=== PATIENT | female | born 1995 | race Caucasian/White ===

== ENCOUNTER 2017-06-13 18:34 | Outpatient (CLI) | payer MEDICAID ==
[~2017-06-13] VITALS: Ht 165.1 cm; Wt 90.7 kg
[2017-06-13 19:00] VITALS: BP 122/67
[2017-06-13 19:05] VITALS: BP 124/71
[2017-06-13 19:10] VITALS: BP 123/71
[2017-06-13 19:15] VITALS: BP 123/71
[2017-06-13 19:20] VITALS: BP 121/75
[2017-06-13 19:30] VITALS: BP 118/73
--- NOTE | 2017-06-14 11:37 | Physician Query-Final Dx ---
PRINCESS BLACKMON 06/14/17 1137: Clinic Account Progress/Dx Physician Query: Please give diagnosis Date of Service Jun 13, 2017 at 18:34 ALEJANDRA JIMENEZ DO 06/27/17 1526: Clinic Account Progress/Dx DIAGNOSIS: Diagnosis 1. 36 week gestation 2. dizziness PRINCESS BLACKMON Jun 14, 2017 11:37 ALEJANDRA JIMENEZ DO Jun 27, 2017 15:26
== END 2017-06-13 19:40 | disposition home or self-care (01) ==
LOC: WSo 18:34 → LDRP 18:37 → WSo 19:40
PROVIDERS: ATTEND Family Medicine
DX: O99.89 Other specified diseases and conditions complicating pregnancy, childbirth and the puerperium (principal); R42 Dizziness and giddiness; Z3A.36 36 weeks gestation of pregnancy
CPT/HCPCS: 99213

== ENCOUNTER → 2017-06-18 | Outpatient (CLI) | payer MEDICAID ==
--- NOTE | 2017-06-18 15:39 | Diagnostic Imaging Report ---
INDICATION: -induced hypertension. FINDINGS: There is a single live fetus in a cephalic presentation. The heart rate was recorded at 136 BPM. The amniotic fluid index is 9.8 cm. The placenta is to the left. A biophysical profile was performed with a normal score of 8 out of 8 points. IMPRESSION: The biophysical profile score was 8 out of 8 points. Dictated by: Dictated on workstation # [id number]
[2017-06-18 16:05] LABS: ALANINE AMINOTRANSFERASE 9 U/L (0-55); ALBUMIN 3.5 GM/DL (3.2-4.5); ALKALINE PHOSPHATASE 191 U/L (40-136); BILIRUBIN,TOTAL 0.2 MG/DL (0.1-1.0); BUN/CREATININE RATIO 14; CALCIUM 9.3 MG/DL (8.5-10.1); CARBON DIOXIDE 21 MMOL/L (21-32); CHLORIDE 107 MMOL/L (98-107); CREATININE SERUM 0.69 MG/DL (0.60-1.30); GFR ESTIMATED > 60; GLUCOSE 87 MG/DL (70-105); POTASSIUM 4.1 MMOL/L (3.6-5.0); SODIUM 137 MMOL/L (135-145); TOTAL PROTEIN 7.1 GM/DL (6.4-8.2); URIC ACID 5.1 MG/DL (2.6-7.2)
== END ==
LOC: RAD 15:01
PROVIDERS: ATTEND Family Medicine
DX: O13.3 Gestational [pregnancy-induced] hypertension without significant proteinuria, third trimester (principal); Z3A.00 Weeks of gestation of pregnancy not specified
CPT/HCPCS: 36415; 76819; 80053; 83615; 84550

== ENCOUNTER 2017-06-19 17:44 | Outpatient (CLI) | payer MEDICAID ==
[~2017-06-19] VITALS: Ht 165.1 cm; Wt 90.3 kg
[2017-06-19 18:00] VITALS: BP 141/74
[2017-06-19 18:32] VITALS: BP 124/79
[2017-06-19 18:48] VITALS: BP 124/79
[2017-06-19 18:53] LABS: BASOPHILS % (AUTO) 0 % (0-10); EOSINOPHILS # (AUTO) 0.1 10^3/uL (0.0-0.3); EOSINOPHILS % (AUTO) 1 % (0-10); HEMATOCRIT 32 % (35-52); HEMOGLOBIN 10.6 G/DL (11.5-16.0); LYMPHOCYTES # (AUTO) 2.6 X 10^3 (1.0-4.0); LYMPHOCYTES % (AUTO) 23 % (12-44); MEAN CORPUSCULAR HEMOGLOBIN 29 PG (25-34); MEAN CORPUSCULAR HGB CONC 34 G/DL (32-36); MEAN CORPUSCULAR VOLUME 85 FL (80-99); MEAN PLATELET VOLUME 11.6 FL (7.4-10.4); MONOCYTES % (AUTO) 9 % (0-12); NEUTROPHILS # (AUTO) 7.3 X 10^3 (1.8-7.8); NEUTROPHILS % (AUTO) 66 % (42-75); PLATELET COUNT 246 10^3/uL (130-400); RED CELL DISTRIBUTION WIDTH 12.9 % (10.0-14.5)
[2017-06-19 19:21] LABS: ALANINE AMINOTRANSFERASE 9 U/L (0-55); ALBUMIN 3.2 GM/DL (3.2-4.5); ALKALINE PHOSPHATASE 175 U/L (40-136); BILIRUBIN,TOTAL 0.2 MG/DL (0.1-1.0); BUN/CREATININE RATIO 15; CALCIUM 9.4 MG/DL (8.5-10.1); CARBON DIOXIDE 20 MMOL/L (21-32); CHLORIDE 108 MMOL/L (98-107); CREATININE SERUM 0.68 MG/DL (0.60-1.30); GFR ESTIMATED > 60; GLUCOSE 95 MG/DL (70-105); POTASSIUM 3.9 MMOL/L (3.6-5.0); SODIUM 139 MMOL/L (135-145); TOTAL PROTEIN 6.7 GM/DL (6.4-8.2); URIC ACID 4.7 MG/DL (2.6-7.2)
[2017-06-20] VITALS (8 sets, daily range): BP systolic 94–132; BP diastolic 54–86
[2017-06-20] MEDS ORDERED: D5 LR IV SOLUTION 1,000 ML IV SCH (08:48)
[2017-06-20] MEDS ORDERED: DINOPROSTONE 10 MG (CERVIDIL) INSERT PV ONE (09:00)
--- NOTE | 2017-06-20 11:25 | Short Stay Summary ---
History of Present Illness History of Present Illness Reason for visit/HPI Admitted for pre eclampsia workup. Blood pressures improved from last night. Denies any blurry vision, headaches, abdominal pain, or LE swelling. Date of Admission 06/19/2017 Date of Discharge 06/20/2017 Time Seen by Provider: 09:35 Attending Physician Clare Younger MD Admitting Physician Clare Younger MD Consult Allergies and Home Medications Allergies Coded Allergies: No Known Drug Allergies (Unverified , 06/13/17) Home Medications No Active Prescriptions or Reported Meds Past Kvhgfvj-Meqwds-Fxlskx Hx Patient Social History Smoking Status: Former Smoker Former Smoker, Quit: May 19, 2016 Type Used: Cigarettes Physical Abuse Screen: No Sexual Abuse: No Recent Foreign Travel: No Contact w/other who traveled: No Recent Infectious Disease Expo: No Immunizations Up To Date Date of Influenza Vaccine: Mar 13, 2017 Reproductive System Expected Date of Delivery: Jul 06, 2017 Last Menstrual Period: September 07, 2016 Hx : 1 Hx Para: 0 Hx Total # of Abortions (Spona: 0 Constitutional: no symptoms reported, No fever, No malaise, No weakness EENTM: no symptoms reported, No blurred vision, No double vision, No vision loss Respiratory: no symptoms reported, No cough, No dyspnea on exertion, No short of breath Cardiovascular: no symptoms reported, No chest pain, No palpitations Gastrointestinal: no symptoms reported, No abdominal pain Genitourinary: no symptoms reported, No dysuria, No frequency : Yes Musculoskeletal: no symptoms reported Skin: no symptoms reported Psychiatric/Neurological: No Symptoms Reported Physical Exam Vital Signs Vital Signs - First Documented 06/19/17 18:00 Temp 98.3 Pulse 87 Resp 18 B/P (MAP) 141/74 (96) Pulse Ox 96 O2 Delivery Room Air Capillary Refill : General Appearance: No Apparent Distress, WD/WN HEENT: PERRL/EOMI Respiratory: Chest Non Tender, Lungs Clear, No Respiratory Distress Cardiovascular: Regular Rate, Rhythm, No Edema, Normal Peripheral Pulses Gastrointestinal: Normal Bowel Sounds, No Organomegaly, Non Tender, Soft Back: No CVA Tenderness Extremity: No Calf Tenderness, Other (trace swelling non pitting) Neurologic/Psychiatric: Alert, Oriented x3, No Motor/Sensory Deficits, Normal Mood/Affect, 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 Skin: Normal Color, Warm/Dry Lymphatic: No Adenopathy Short Stay Diagnosis Discharge Diagnosis-Short Stay Admission Diagnosis: Third trimester pregrancy 37 week gestation Elevated blood pressure Final Discharge Diagnosis: See Above Conclusion Labs Laboratory Tests 06/19/17 18:45: White Blood Count 11.0, Red Blood Count 3.70L, Hemoglobin 10.6L, Hematocrit 32L , Mean Corpuscular Volume 85, Mean Corpuscular Hemoglobin 29, Mean Corpuscular Hemoglobin Concent 34, Red Cell Distribution Width 12.9, Platelet Count 246, Mean Platelet Volume 11.6H, Neutrophils (%) (Auto) 66, Lymphocytes (%) (Auto) 23 , Monocytes (%) (Auto) 9, Eosinophils (%) (Auto) 1, Basophils (%) (Auto) 0, Neutrophils # (Auto) 7.3, Lymphocytes # (Auto) 2.6, Monocytes # (Auto) 1.0, Eosinophils # (Auto) 0.1, Basophils # (Auto) 0.0, Sodium Level 139, Potassium Level 3.9, Chloride Level 108H, Carbon Dioxide Level 20L, Anion Gap 11, Blood Urea Nitrogen 10, Creatinine 0.68, Estimat Glomerular Filtration Rate > 60, BUN/ Creatinine Ratio 15, Glucose Level 95, Uric Acid 4.7, Calcium Level 9.4, Total Bilirubin 0.2, Aspartate Amino Transf (AST/SGOT) 14, Alanine Aminotransferase ( ALT/SGPT) 9, Alkaline Phosphatase 175H, Lactate Dehydrogenase 188, Total Protein 6.7, Albumin 3.2 06/20/17 10:00: Urine Protein 10, Urine Creatinine 106, Urine Protein/Creatinine Ratio 0.09 Conclusion/Plan 22 yo 37wga admitted for obs for workup to rule out pre eclampsia Plan - Ratio 0.09 - Blood pressures improved today - Discussed signs and symptoms of pre eclampsia - Plan for IOL on Saturday Copy Copies To 1: CLARE YOUNGER MD, HOLLY R MD Jun 20, 2017 11:25
--- NOTE | 2017-06-20 12:40 | Discharge Instructions ---
Discharge Inst-[facility] Discharge Medications New, Converted or Re-Newed RX: Other (No new scipts) Medication Profile: No Active Prescriptions or Reported Meds Patient Instructions Goal/Follow Up Appt: You will need to come in on Saturday for induction of labor Return to The Hospital For: - Headache - Blurry vision - Increased swelling - Abdominal pain - Onset of labor Activity & Diet Discharge Diet: No Restrictions Activity as Tolerated: Yes Copy Copies To 1: CLARE WOOTEN MD, HOLLY R MD Jun 20, 2017 12:40 pm
[2017-06-20] MEDS ORDERED: AMPICILLIN INJECTION 1,000 MG in NS (IVPB) 50 ML IV SCH (13:00)
[2017-06-20] MEDS ORDERED: CATHETER FLUSH 10 ML SYR IV SCH (14:00)
[2017-06-21] MEDS ORDERED: AMPICILLIN INJECTION 2,000 MG in NS (IVPB) 50 ML IV SCH (08:32)
== END 2017-06-20 13:00 | disposition home or self-care (01) ==
LOC: WSo 17:44 → LDRP 17:44 → WSo 06-20 13:00
PROVIDERS: ATTEND Family Medicine
DX: R03.0 Elevated blood-pressure reading, without diagnosis of hypertension (principal); Z87.891 Personal history of nicotine dependence; Z3A.37 37 weeks gestation of pregnancy
CPT/HCPCS: 36415; 80053; 82570; 83615; 84156; 84550; 85025

== ENCOUNTER 2017-06-23 15:15 | Inpatient (IN) | payer MEDICAID ==
[~2017-06-23] VITALS: Ht 165.1 cm; Wt 92.7 kg
--- OUTSIDE RECORDS SUMMARY | 2017-06-23 19:15 | XMS REPORT ---
Author Author Aisha Marshall [facility] Address [address] [place] [id number] Care Team Providers Care Superintendent Recreation Name Role Phone Aisha Marshall PCP Marilu Huffman PreferredProvider Unavailable Allergies and Adverse Reactions Name Reaction Notes NO KNOWN DRUG ALLERGIES Plan of Treatment Planned Activity Comments Planned Date Planned Time Plan/Goal PFT 01/15/2017 12:00 AM Medications Active Name Start Date Estimated Completion Date SIG Comments Vitamin oral tablet take 1 tablet by oral route once daily Flonase Allergy Relief 50 mcg/actuation nasal spray,suspension 01/15/2017 spray 1 spray (50 mcg) in each nostril by intranasal route once daily for 30 days ProAir HFA 90 mcg/actuation inhalation HFA aerosol inhaler 02/20/2017 inhale 1 puff (90 mcg) by inhalation route every 6 hours as needed for 30 days Macrobid 100 mg oral capsule 03/12/2017 take 1 capsule (100 mg) by oral route every 12 hours with food for 5 days Name Start Date Expiration Date SIG Comments Depo-Provera 150 mg/mL intramuscular suspension 11/26/2013 inject 150 mg by intramuscular route every 3 months omeprazole 40 mg oral capsule,delayed release(DR/EC) 06/08/2014 01/28/2014 take 1 capsule daily amoxicillin 500 mg oral capsule 06/18/2014 06/28/2014 take 1 capsule (500 mg) by oral route 3 times per day for 10 days ProAir HFA 90 mcg/actuation inhalation HFA aerosol inhaler Macrobid 100 mg oral capsule 10/26/2016 11/02/2016 take 1 capsule (100 mg) by oral route 2 times per day with food for 7 days Discontinued Name Start Date Discontinued Date SIG Comments bupropion HBr oral 11/26/2013 montelukast 10 mg oral tablet 11/26/2013 take 1 tablet (10 mg) by oral route once daily in the evening Wellbutrin 100 mg oral tablet 04/21/2014 06/18/2014 take 1 tablet (100 mg) by oral route 2 times per day Zofran (as hydrochloride) 8 mg oral tablet 11/28/2016 01/15/2017 Take 1/2 tablet every 4-6 hours as needed for nausea/vomiting nystatin 100,000 unit/gram topical powder 12/18/2016 01/15/2017 apply to the affected area(s) by topical route 2 times per day Problem List Description Status Onset Asthma Active Vital Signs Date Time BP-Sys(mm[Hg] BP-Macy(mm[Hg]) HR(bpm) RR(rpm) Temp WT HT HC BMI BSA BMI Percentile O2 Sat(%) 03/13/2017 9:50:00 AM 128 mmHg 78 mmHg 81 bpm 18 rpm 98.6 F 169 lbs 99 % 02/20/2017 8:06:00 AM 108 mmHg 77 mmHg 86 bpm 18 rpm 98.9 F 165.125 lbs 65 in 27.478 kg/m 1.8534 m 0 % 99 % 01/15/2017 10:21:00 AM 115 mmHg 72 mmHg 153 lbs 65 in 25.46 kg /m2 1.78 m2 80.9 % 10/24/2016 10:33:00 AM 128 mmHg 60 mmHg 71 bpm 98.8 F 150 lbs 65 in 24.9611 kg/m 1.7665 m 78.7 % 12/15/2014 1:26:00 PM 120 mmHg 72 mmHg 78 bpm 16 rpm 98.2 F 173 lbs 65 in 28.79 kg/m2 1.90 m2 93.2 % 99 % 08/10/2014 9:49:00 AM 120 mmHg 80 mmHg 89 bpm 16 rpm 98.2 F 169.137 lbs 65 in 28.1457 kg/m 1.8758 m 92.5 % 99 % 07/14/2014 10:47:00 AM 124 mmHg 68 mmHg 91 bpm 18 rpm 98.6 F 172 lbs 65 in 28.62 kg/m2 1.89 m2 93.4 % 98 % 06/18/2014 2:29:00 PM 97 bpm 20 rpm 98.6 F 171 lbs 65 in 28.4556 kg/m 1.8861 m 93.2 % 99 % 04/21/2014 2:19:00 PM 120 mmHg 78 mmHg 89 bpm 98.3 F 171.4 lbs 65 in 28.52 kg/m2 1.89 m2 93.4 % 99 % 12/29/2013 9:06:00 AM 124 mmHg 68 mmHg 90 bpm 18 rpm 98.3 F 177 lbs 65 in 29.454 kg/m 1.9189 m 94.9 % 98 % 11/26/2013 10:13:00 AM 120 mmHg 80 mmHg 79 bpm 16 rpm 97.7 F 176 lbs 65 in 29.29 kg/m2 1.91 m2 94.8 % 99 % Social History Name Description Comments Single Caffeine Active but no formal exercise Tobacco Former smoker History of Procedures Date Ordered Description Order Status 01/26/2015 12:00 AM Depo Provera Injection, 150 mg Reviewed 10/24/2016 12:00 AM SPECIMEN HANDLING OFFICE-LAB Reviewed 10/24/2016 12:00 AM N.GONORRHOEAE DNA AMP PROB Reviewed 10/24/2016 12:00 AM CHLAMYDIA CULTURE Reviewed 10/24/2016 12:00 AM HIV-1ANTIBODY Reviewed 10/24/2016 12:00 AM URINALYSIS AUTO W/SCOPE Reviewed 10/24/2016 12:00 AM VARICELLA-ZOSTER ANTIBODY Reviewed 10/24/2016 12:00 AM OBSTETRIC PANEL Reviewed 10/24/2016 12:00 AM SMEAR SPECIAL STAIN Reviewed 10/24/2016 12:00 AM HEPATITIS C AB TEST Reviewed 10/24/2016 12:00 AM TRICHOMONAS VAGINALIS AMPLIF Reviewed 11/13/2016 12:00 AM TRANSVAGINAL US OBSTETRIC Reviewed 11/13/2016 12:00 AM OB US < 14 WKS SINGLE FETUS Reviewed 11/08/2016 12:00 AM CHORIONIC GONADOTROPIN ASSAY Reviewed 12/18/2016 12:00 AM Progenity Testing Reviewed 02/19/2017 12:00 AM OB US >/=14 WKS SNGL FETUS Reviewed 02/12/2017 12:00 AM ALPHA-FETOPROTEIN SERUM Reviewed 02/12/2017 12:00 AM IM ADM PRQ ID SUBQ/IM NJXS 1 VACCINE Reviewed 02/12/2017 12:00 AM INFLUENZA VAC 4 VALENT PRSRV FREE 3 YRS PLUS IM Reviewed 03/12/2017 12:00 AM URINALYSIS Returned 03/12/2017 12:00 AM URINE CULTURE/COLONY COUNT Returned 11/26/2013 12:00 AM THER/PROPH/DIAG INJ SC/IM Reviewed 11/26/2013 12:00 AM Depo Provera Injection, 150 mg, R[facility] Medicaid Reviewed 02/24/2014 12:00 AM FLU VAC NO PRSV 4 YARA 3 YRS+ Reviewed 02/24/2014 12:00 AM Depo Provera Injection, 150 mg Reviewed 05/19/2014 12:00 AM Depo Provera Injection, 150 mg Reviewed 07/15/2014 12:00 AM COMPLETE CBC W/AUTO DIFF WBC Reviewed 07/15/2014 12:00 AM COMPREHEN METABOLIC PANEL Reviewed 07/15/2014 12:00 AM X-RAY EXAM OF ABDOMEN Reviewed 08/10/2014 12:00 AM THER/PROPH/DIAG INJ SC/IM Reviewed 08/10/2014 12:00 AM PULMONARY COMPLIANCE STUDY Reviewed 08/10/2014 12:00 AM Depo Provera Injection, 150 mg Reviewed 11/01/2014 12:00 AM THER/PROPH/DIAG INJ SC/IM Reviewed 11/01/2014 12:00 AM Depo Provera Injection, 150 mg, R[facility] Medicaid Reviewed 12/15/2014 12:00 AM RADEX ANKLE COMPLETE MINIMUM 3 VIEWS Reviewed Results Summary Date and Description Results 07/15/2014 2:00 PM GLUCOSE 97.0 mg/dLSODIUM 140.0 mmol/LPOTASSIUM 4.0 mmol/ LCHLORIDE 104.0 mmol/LCO2 23.0 mmol/LBUN 10.0 mg/dLCREATININE 0.80 mg/dLSGOT/ AST 18.0 IU/LSGPT/ALT 18.0 IU/LALK PHOS 121.0 IU/LTOTAL PROTEIN 8.70 g/ dLALBUMIN 4.80 g/dLTOTAL BILI 0.40 mg/dLCALCIUM 10.20 mg/dLAGE 19 GFR NonAA N/A eGFR N/A mL/min/1.73 m2eGFR AA* N/A WBC 6.8 RBC 4.98 HGB 13.50 g/dLHCT 41.80 % MCV 84.0 fLMCH 27.10 pgMCHC 32.30 g/dLRDW SD 40 RDW CV 13.30 %MPV 11.50 fLPLT 297 NRBC# 0.00 NRBC% 0.0 %NEUT 58.50 %%LYMP 31.60 %%MONO 7.80 %%EOS 1.80 %%BASO 0.30 %#NEUT 3.96 #LYMP 2.14 #MONO 0.53 #EOS 0.12 #BASO 0.02 MANUAL DIFF NOT IND 10/24/2016 11:28 AM HIV AG/AB COMBO 0.09 HEPATITIS C 0.11 COLOR YELLOW APPEARANCE CLEAR SPEC GRAV 1.025 pH 6.5 PROTEIN NEGATIVE GLUCOSE NEGATIVE mg/ dLKETONE NEGATIVE BILIRUBIN NEGATIVE BLOOD NEGATIVE NITRITE NEGATIVE LEUK SCREEN NEGATIVE WBC/HPF 0-5 RBC/HPF NEGATIVE CASTS/LPF NEGATIVE /LPFCRYSTALS NEGATIVE MUCOUS THRDS 1+ BACTERIA 3+++ EPITH CELLS FEW SQUAMOUS /HPFTRICHOMONAS NEGATIVE YEAST NEGATIVE CULT ORDERED YES WBC 6.7 RBC 4.16 HGB 11.70 g/dLHCT 35.70 %MCV 86.0 fLMCH 28.10 pgMCHC 32.80 g/dLRDW SD 40 RDW CV 12.60 %MPV 12.50 fLPLT 211 NRBC# 0.00 NRBC% 0.0 %NEUT 62.60 %%LYMP 28.80 %%MONO 7.10 %%EOS 1.0 %% BASO 0.40 %#NEUT 4.21 #LYMP 1.94 #MONO 0.48 #EOS 0.07 #BASO 0.03 MANUAL DIFF NOT IND RPR Non Reactive HBsAg Screen Negative Varicella Zoster IgG 164.0 Index 11/08/2016 4:20 PM BETA HCG QUANT 75411.0 mIU/mL 11/13/2016 5:18 PM BETA HCG QUANT 33028.0 mIU/mL 02/12/2017 10:06 AM Results Report Test Results: *Screen Negative* Gest. Age on CollectionDate 19.4 Gestat. Age Based On Ultrasound Maternal Age At [age]IA 22.3 Race Weight 166.0 lbsInsulin Dep Diabetes No Multiple Gestation No AFP Value 63.0 AFP MoM 1.30 OSBR Risk 1 IN 4803 Interpretation COMMENT Comment: COMMENT PDF 0 History Of Immunizations Name Date Admin Mfg Name Mfg Code Trade Name Lot# Route Inj Vis Given Vis Pub CVX Influenza 02/12/2017 GlaxoSmithKline SKB Fluarix [id number] Intramuscular Right Deltoid 02/12/2017 12/10/2014 158 History of Past Illness Name Date of Onset Comments Asthma Depression Contraceptive management Nov 26 2013 10:25AM General Medical Exam, Child Dec 29 2013 9:08AM Esophageal reflux Dec 29 2013 9:08AM Flu Feb 25 2014 7:42AM Contraceptive counseling (Depo-Provera) Feb 25 2014 7:45AM Irritability and anger Apr 21 2014 2:20PM Ankle pain Apr 21 2014 2:20PM Contraceptive counseling (Depo-Provera) May 19 2014 6:03PM Upper Respiratory Infections Jun 18 2014 2:30PM Abdominal Pain Jul 14 2014 10:48AM Nausea Jul 14 2014 10:48AM Constipation Jul 14 2014 10:48AM Abdominal pain Jul 15 2014 1:22PM Asthma Aug 10 2014 9:52AM Contraception management Aug 10 2014 9:52AM Contraception management Nov 01 2014 9:36AM Left ankle pain Dec 15 2014 1:28PM Contraceptive counseling (Depo-Provera) Jan 26 2015 4:13PM test confirmed positive Oct 24 2016 10:37AM Genital labial ulcer Oct 24 2016 10:37AM Vaginal lesion Oct 24 2016 10:37AM Encounter for supervision of normal first , first trimester Nov 08 2016 10:04AM Encounter for test, result positive Nov 08 2016 10:04AM Normal first confirmed, currently in first trimester Dec 18 2016 9: 28AM Normal first confirmed, currently in second trimester Jan 15 2017 9 :08AM Allergic rhinitis Jan 15 2017 10:25AM Jan 15 2017 10:25AM Shortness of breath Jan 15 2017 10:25AM Normal first confirmed, currently in second trimester Feb 12 2017 8 :58AM Flu Vaccine Feb 12 2017 9:04AM Depression Feb 20 2017 8:12AM Shortness of breath Feb 20 2017 8:12AM Feb 20 2017 8:12AM Dysuria Mar 12 2017 9:04AM Allergic rhinitis Mar 13 2017 9:52AM Depression Mar 13 2017 9:52AM Payers Insurance Name Company Name Plan Name Plan Number Policy Number Policy Group Number Start Date [employer] [place] [employer] [place] [id number] Sunday, 2012 History of Encounters Visit Date Visit Type Provider 03/13/[address] Aisha Marshall DO 03/12/[address] Kiara Stokes MD 02/20/[address] Aisha Marshall DO 02/12/[address] Kiara Stokes MD 01/15/[address] Aisha Marshall DO 01/15/[address] Kiara Stokes MD 12/18/[address] Kaira Stokes MD 11/20/[address] Kiara Stokes MD 11/08/[address] Kiara Stokes MD 10/24/2016 Office visit Ashley Del Rosario TMH TEACHER 01/26/2015 Nurse visit Marilu Huffman TMH TEACHER 12/15/2014 Office visit Sebas Ashby TMH TEACHER 11/01/2014 Nurse visit Marilu Huffman TMH TEACHER 08/10/2014 Office visit 08/10/2014 Office visit Marilu Huffman TMH TEACHER 07/14/2014 Office visit Marilu Huffman TMH TEACHER 06/18/2014 Office visit Nguyen Pettit TMH TEACHER 05/19/2014 Nurse visit Marilu Huffman TMH TEACHER 04/21/2014 Office visit Nguyen Pettit TMH TEACHER 02/24/2014 Nurse visit Nguyen Pettit TMH TEACHER 12/29/2013 Office visit Marilu Huffman TMH TEACHER 11/26/2013 Office visit Marilu Huffman TMH TEACHER
--- OUTSIDE RECORDS SUMMARY | 2017-06-23 19:16 | XMS REPORT ---
Author Author Ashley Del Rosario [facility] Address [address] [place], [place] [id number] Care Team Providers Care Cash Management Specialist Name Role Phone Ashley Del Rosario PCP Unavailable Marilu Huffman PreferredProvider Unavailable Allergies and Adverse Reactions Name Reaction Notes NO KNOWN DRUG ALLERGIES Plan of Treatment Not available. Medications Name Start Date Expiration Date SIG Comments Depo-Provera 150 mg/mL intramuscular suspension 11/26/2013 inject 150 mg by intramuscular route every 3 months omeprazole 40 mg oral capsule,delayed release(/EC) 06/08/2014 01/28/2014 take 1 capsule daily amoxicillin 500 mg oral capsule 06/18/2014 06/28/2014 take 1 capsule (500 mg) by oral route 3 times per day for 10 days ProAir HFA 90 mcg/actuation inhalation HFA aerosol inhaler Discontinued Name Start Date Discontinued Date SIG Comments bupropion HBr oral 11/26/2013 montelukast 10 mg oral tablet 11/26/2013 take 1 tablet (10 mg) by oral route once daily in the evening Wellbutrin 100 mg oral tablet 04/21/2014 06/18/2014 take 1 tablet (100 mg) by oral route 2 times per day Problem List Description Status Onset Asthma Active Vital Signs Date Time BP-Sys(mm[Hg] BP-Macy(mm[Hg]) HR(bpm) RR(rpm) Temp WT HT HC BMI BSA BMI Percentile O2 Sat(%) 10/24/2016 10:33:00 AM 128 mmHg 60 mmHg 71 bpm 98.8 F 150 lbs 65 in 24.96 kg/m2 1.77 m2 78.7 % 12/15/2014 1:26:00 PM 120 mmHg 72 mmHg 78 bpm 16 rpm 98.2 F 173 lbs 65 in 28.7884 kg/m 1.8971 m 93.2 % 99 % 08/10/2014 9:49:00 AM 120 mmHg 80 mmHg 89 bpm 16 rpm 98.2 F 169.137 lbs 65 in 28.15 kg/m2 1.88 m2 92.5 % 99 % 07/14/2014 10:47:00 AM 124 mmHg 68 mmHg 91 bpm 18 rpm 98.6 F 172 lbs 65 in 28.622 kg/m 1.8916 m 93.4 % 98 % 06/18/2014 2:29:00 PM 97 bpm 20 rpm 98.6 F 171 lbs 65 in 28.46 kg/m2 1.89 m2 93.2 % 99 % 04/21/2014 2:19:00 PM 120 mmHg 78 mmHg 89 bpm 98.3 F 171.4 lbs 65 in 28.52 kg/m2 1.8883 m 93.4 % 99 % 12/29/2013 9:06:00 AM 124 mmHg 68 mmHg 90 bpm 18 rpm 98.3 F 177 lbs 65 in 29.454 kg/m 1.92 m2 94.9 % 98 % 11/26/2013 10:13:00 AM 120 mmHg 80 mmHg 79 bpm 16 rpm 97.7 F 176 lbs 65 in 29.29 kg/m2 1.9134 m 94.8 % 99 % Social History Name Description Comments Single Caffeine Active but no formal exercise Tobacco Former smoker History of Procedures Date Ordered Description Order Status 01/26/2015 12:00 AM Depo Provera Injection, 150 mg Reviewed 11/26/2013 12:00 AM THER/PROPH/DIAG INJ SC/IM Reviewed [...] 0.12 #BASO 0.02 MANUAL DIFF NOT IND History Of Immunizations Not available. History of Past Illness Name Date of Onset Comments Asthma Contraceptive management Nov 26 2013 10:25AM General [...] Contraceptive counseling (Depo-Provera) Jan 26 2015 4:13PM Payers Insurance Name Company Name Plan Name Plan Number Policy Number Policy Group Number Start Date [employer] [place] [employer] [place] [id number] Sunday, 2012 History of Encounters Visit Date Visit Type Provider 10/24/2016 Office visit Ashley Del Rosario RECEIVER DISPATCHER 01/26/2015 Nurse visit Marilu Huffman RECEIVER DISPATCHER 12/15/2014 Office visit Sebas Ashby RECEIVER DISPATCHER 11/01/2014 Nurse visit Marilu Huffman RECEIVER DISPATCHER 08/10/2014 Office visit 08/10/2014 Office visit Marilu Huffman RECEIVER DISPATCHER 07/14/2014 Office visit Marilu Huffman RECEIVER DISPATCHER 06/18/2014 Office visit Nguyen Pettit RECEIVER DISPATCHER 05/19/2014 Nurse visit Marilu Huffman RECEIVER DISPATCHER 04/21/2014 Office visit Nguyen Pettit RECEIVER DISPATCHER 02/24/2014 Nurse visit Nguyen Pettit RECEIVER DISPATCHER 12/29/2013 Office visit Marilu Huffman RECEIVER DISPATCHER 11/26/2013 Office visit Marilu Huffman RECEIVER DISPATCHER
--- OUTSIDE RECORDS SUMMARY | 2017-06-23 19:16 | XMS REPORT ---
Author Author Marilu Huffman [facility] Address [address] [place], [place] [id number] Care Team Providers Care Family Medicine Resident Name Role Phone Marilu Huffman PCP Unavailable Allergies and Adverse Reactions Name Reaction Notes NO KNOWN DRUG ALLERGIES Plan of Treatment Not available. Medications Active Name Start Date Estimated Completion Date SIG Comments Depo-Provera 150 mg/mL intramuscular suspension 11/26/2013 inject 150 mg by intramuscular route every 3 months ProAir HFA 90 mcg/actuation inhalation HFA aerosol inhaler Name Start Date Expiration Date SIG Comments omeprazole 40 mg oral capsule,delayed release(DR/EC) 06/08/2014 01/28/2014 take 1 capsule daily amoxicillin 500 mg oral capsule 06/18/2014 06/28/2014 take 1 capsule (500 mg) by oral route 3 times per day for 10 days Discontinued Name Start Date Discontinued Date [...] HC BMI BSA BMI Percentile O2 Sat(%) 12/15/2014 1:26:00 PM 120 mmHg 72 mmHg [...] 99 % Social History Name Description Comments 11th grade Single Caffeine Active but no formal exercise In foster care History of Procedures Date Ordered Description Order [...] 12:00 AM COMPLETE CBC W/AUTO DIFF WBC Returned 07/15/2014 12:00 AM COMPREHEN METABOLIC PANEL Returned 07/15/2014 12:00 AM X-RAY EXAM OF ABDOMEN Returned 08/10/2014 12:00 AM THER/PROPH/DIAG INJ SC/IM Reviewed 08/10/2014 12:00 AM PULMONARY COMPLIANCE STUDY Returned 08/10/2014 12:00 AM Depo Provera Injection, 150 mg Reviewed 11/01/2014 12:00 AM THER/PROPH/DIAG INJ SC/IM Reviewed 11/01/2014 12:00 AM Depo Provera Injection, 150 mg, [place] Medicaid Reviewed 12/15/2014 12:00 AM RADEX ANKLE COMPLETE MINIMUM 3 VIEWS Returned Results Summary Data and Description Results 07/15/2014 2:00 PM GLUCOSE 97.0 mg/dLSODIUM 140.0 mmol/LPOTASSIUM 4.0 mmol/ LCHLORIDE 104.0 mmol/LCO2 23.0 mmol/LBUN 10.0 mg/dLCREATININE 0.80 mg/dLSGOT/ AST 18.0 IU/LSGPT/ALT 18.0 IU/LALK PHOS 121.0 IU/LTOTAL PROTEIN 8.70 g/ dLALBUMIN 4.80 g/dLTOTAL BILI 0.40 mg/dLCALCIUM 10.20 mg/dLeGFR N/A mL/min/1.73 m2WBC 6.8 RBC 4.98 HGB 13.50 g/dLHCT 41.80 %MCV 84.0 fLMCH 27.10 pgMCHC 32.30 g/ dLRDW CV 13.30 %MPV 11.50 fLPLT 297 %NEUT 58.50 %%LYMP 31.60 %%MONO 7.80 %%EOS 1.80 %%BASO 0.30 %#NEUT 3.96 #LYMP 2.14 #MONO 0.53 #EOS 0.12 #BASO 0.02 History Of Immunizations Not available. History of [...] Policy Number Policy Group Number [facility] [place] State Plan [facility] [place] State Plan [id number] Sunday, 2012 History of Encounters Visit Date Visit Type Provider 01/26/2015 Nurse visit Marilu Huffman PARTS PERSON 12/15/2014 Office visit Sebas Ashby PARTS PERSON 11/01/2014 Nurse visit Marilu Huffman PARTS PERSON 08/10/2014 Office visit Marilu Huffman PARTS PERSON 07/14/2014 Office visit Marilu Huffman PARTS PERSON 06/18/2014 Office visit Nguyen Pettit PARTS PERSON 05/19/2014 Nurse visit Marilu Huffman PARTS PERSON 04/21/2014 Office visit Nguyen Pettit PARTS PERSON 02/24/2014 Nurse visit Nguyen Pettit PARTS PERSON 12/29/2013 Office visit Marilu Huffman PARTS PERSON 11/26/2013 Office visit Marilu Huffman PARTS PERSON
--- OUTSIDE RECORDS SUMMARY | 2017-06-23 19:16 | XMS REPORT ---
Author Author Kiara Stokes [facility] Address [address] [place], [place] [id number] Care Team Providers Care V Belt Skiver Name Role Phone Kiara Stokes PCP Unavailable Marilu Huffman PreferredProvider Unavailable Allergies and Adverse Reactions Name Reaction Notes NO KNOWN DRUG ALLERGIES Plan of Treatment Planned Activity Comments Planned Date Planned Time Plan/Goal OB TRANSVAGINAL 11/13/2016 12:00 AM OB Complete Sono, Less than 14 weeks 11/13/2016 12:00 AM Quantitative Beta HCG 11/08/2016 12:00 AM Medications Active Name Start Date Estimated Completion Date SIG Comments Vitamin oral tablet take 1 tablet by oral route once daily Name Start Date Expiration Date SIG Comments [...] Asthma Active Vital Signs Date Time BP-Sys(mm[Hg] BP-Amcy(mm[Hg]) HR(bpm) RR(rpm) Temp WT HT HC BMI [...] 10/24/2016 12:00 AM TRICHOMONAS VAGINALIS AMPLIF Reviewed 11/26/2013 12:00 AM THER/PROPH/DIAG INJ SC/IM [...] IND RPR Non Reactive HBsAg Screen Negative Rubella Antibodies, IgG 1.39 IndexVaricella Zoster IgG 164.0 Index History Of Immunizations Not available. History of [...] test, result positive Nov 08 2016 10:04AM Payers Insurance Name Company Name Plan Name Plan Number Policy Number Policy Group Number Start Date [employer] [place] [employer] [place] [id number] Sunday, 2012 History of Encounters Visit Date Visit Type Provider 11/08/[address] Kiara Stokes MD 10/24/2016 Office visit Ashley Del Rosario SANITARIAN 01/26/2015 Nurse visit Marilu Huffman SANITARIAN 12/15/2014 Office visit Sebas Ashby SANITARIAN 11/01/2014 Nurse visit Marilu Huffman SANITARIAN 08/10/2014 Office visit 08/10/2014 Office visit Marilu Huffman SANITARIAN 07/14/2014 Office visit Marilu Huffman SANITARIAN 06/18/2014 Office visit Nguyen Pettit SANITARIAN 05/19/2014 Nurse visit Marilu Huffman SANITARIAN 04/21/2014 Office visit Nguyen Pettit SANITARIAN 02/24/2014 Nurse visit Nguyen Pettit SANITARIAN 12/29/2013 Office visit Marilu Huffman SANITARIAN 11/26/2013 Office visit Marilu Huffman SANITARIAN
--- OUTSIDE RECORDS SUMMARY | 2017-06-23 19:17 | XMS REPORT ---
Author Author Kiara Stokes [facility] Address [address] [place], [place] [phone] Care Team Providers Care Platform Stapler Name Role Phone Kiara Stokes PCP Unavailable [...] Plan [employer] - [place] State Plan [id number] Sunday, 2012 History of Encounters Visit Date Visit Type Provider 11/08/[address] Kiara Stokes MD 10/24/2016 Office visit Ashley Del Rosario ANCHOR TACK PULLER 01/26/2015 Nurse visit Marilu Huffman ANCHOR TACK PULLER 12/15/2014 Office visit Sebas Ashby ANCHOR TACK PULLER 11/01/2014 Nurse visit Marilu Huffman ANCHOR TACK PULLER 08/10/2014 Office visit 08/10/2014 Office visit Marilu Huffman ANCHOR TACK PULLER 07/14/2014 Office visit Marilu Huffman ANCHOR TACK PULLER 06/18/2014 Office visit Nguyen Pettit ANCHOR TACK PULLER 05/19/2014 Nurse visit Marilu Huffman ANCHOR TACK PULLER 04/21/2014 Office visit Nguyen Pettit ANCHOR TACK PULLER 02/24/2014 Nurse visit Nguyen Pettit ANCHOR TACK PULLER 12/29/2013 Office visit Marilu Huffman ANCHOR TACK PULLER 11/26/2013 Office visit Marilu Huffman ANCHOR TACK PULLER
--- OUTSIDE RECORDS SUMMARY | 2017-06-23 19:17 | XMS REPORT ---
Author Author Kiara Stokes [facility] Address [address] [place], [place] [phone] Care Team Providers Care Water Treatment Plant Mechanic Name Role Phone Kiara Stokes PCP Unavailable Marilu Huffman PreferredProvider Unavailable Allergies and Adverse Reactions Name Reaction Notes NO KNOWN DRUG ALLERGIES Plan of Treatment Planned Activity Comments Planned Date Planned Time Plan/Goal OB Complete Sono, Less than 14 weeks 11/13/2016 12:00 AM Medications Active Name Start Date [...] Reviewed 11/13/2016 12:00 AM TRANSVAGINAL US OBSTETRIC Returned 11/08/2016 12:00 AM CHORIONIC GONADOTROPIN ASSAY Returned 11/26/2013 12:00 AM THER/PROPH/DIAG INJ SC/IM [...] IgG 1.39 IndexVaricella Zoster IgG 164.0 Index 11/08/2016 4:20 PM BETA HCG QUANT 24968.0 mIU/mL 11/13/2016 5:18 PM BETA HCG QUANT 49377.0 mIU/mL History Of Immunizations Not available. History of [...] Plan [employer] - [place] Plan [id number] Sunday, 2012 History of Encounters Visit Date Visit Type Provider 11/20/[address] Kiara Stokes MD 11/08/[address] Kiara Stokes MD 10/24/2016 Office visit Ashley Del Rosario SECOND HAND 01/26/2015 Nurse visit Marilu Huffman SECOND HAND 12/15/2014 Office visit Sebas Ashby SECOND HAND 11/01/2014 Nurse visit Marilu Huffman SECOND HAND 08/10/2014 Office visit 08/10/2014 Office visit Marilu Huffman SECOND HAND 07/14/2014 Office visit Marilu Huffman SECOND HAND 06/18/2014 Office visit Nguyen Pettit SECOND HAND 05/19/2014 Nurse visit Marilu Huffman SECOND HAND 04/21/2014 Office visit Nguyen Pettit SECOND HAND 02/24/2014 Nurse visit Nguyen Pettit SECOND HAND 12/29/2013 Office visit Marilu Huffman SECOND HAND 11/26/2013 Office visit Marilu Huffman SECOND HAND
--- OUTSIDE RECORDS SUMMARY | 2017-06-23 19:17 | XMS REPORT ---
Author Author Aisha Marshall [facility] Address [address] [place] [id number] Care Team Providers Care Commercial Energy Rater Name Role Phone Aisha Marshall PCP Marilu Huffman PreferredProvider Unavailable Allergies and Adverse Reactions Name Reaction Notes NO KNOWN DRUG ALLERGIES Plan of Treatment Planned Activity Comments Planned Date Planned Time Plan/Goal Ultrasound, OB complete >14 weeks 02/19/2017 12:00 AM PFT 01/15/2017 12:00 AM Medications Active Name [...] 6 hours as needed for 30 days Name Start Date Expiration Date SIG [...] HC BMI BSA BMI Percentile O2 Sat(%) 02/20/2017 8:06:00 AM 108 mmHg 77 mmHg 86 bpm 18 rpm 98.9 F 165.125 lbs 65 in 27.48 kg/m2 1.85 m2 0 % 99 % 01/15/2017 10:21:00 AM 115 mmHg 72 mmHg 153 lbs 65 in 25.4603 kg/m 1.784 m 80.9 % 10/24/2016 10:33:00 AM 128 mmHg [...] bpm 98.3 F 171.4 lbs 65 in 28.5222 kg/m 1.8883 m 93.4 % 99 % 12/29/2013 9:06:00 AM 124 mmHg 68 mmHg 90 bpm 18 rpm 98.3 F 177 lbs 65 in 29.45 kg/m2 1.92 m2 94.9 % 98 % 11/26/2013 10:13:00 AM 120 mmHg 80 mmHg 79 bpm 16 rpm 97.7 F 176 lbs 65 in 29.2876 kg/m 1.9134 m 94.8 % 99 % Social [...] Reviewed 12/18/2016 12:00 AM Progenity Testing Reviewed 02/12/2017 12:00 AM ALPHA-FETOPROTEIN SERUM Returned 02/12/2017 12:00 AM IM ADM PRQ ID SUBQ/IM NJXS 1 VACCINE Reviewed 02/12/2017 12:00 AM INFLUENZA VAC 4 VALENT PRSRV FREE 3 YRS PLUS IM Reviewed 11/26/2013 12:00 AM THER/PROPH/DIAG INJ SC/IM [...] Index 11/08/2016 4:20 PM BETA HCG QUANT 06729.0 mIU/mL 11/13/2016 5:18 PM BETA HCG QUANT 57432.0 mIU/mL History Of Immunizations Name Date Admin Mfg [...] 20 2017 8:12AM Feb 20 2017 8:12AM Payers Insurance Name Company Name Plan Name Plan Number Policy Number Policy Group Number Start Date [employer] [place] [employer] [place] [id number] Sunday, 2012 History of Encounters Visit Date Visit Type Provider 02/20/[address] Aisha Marshall DO 02/12/[address] Kiara Stokes MD 01/15/[address] Aisha Marshall DO 01/15/[address] Kiara Stokes MD 12/18/[address] Kiara Stokes MD 11/20/[address] Kiara Stokes MD 11/08/[address] Kiara Stokes MD 10/24/2016 Office visit Ashley Del Rosario DIVER TENDER 01/26/2015 Nurse visit Marilu Huffman DIVER TENDER 12/15/2014 Office visit Sebas Ashby DIVER TENDER 11/01/2014 Nurse visit Marilu Huffman DIVER TENDER 08/10/2014 Office visit 08/10/2014 Office visit Marilu Huffman DIVER TENDER 07/14/2014 Office visit Marilu Huffman DIVER TENDER 06/18/2014 Office visit Nguyen Pettit DIVER TENDER 05/19/2014 Nurse visit Marilu Huffman DIVER TENDER 04/21/2014 Office visit Nguyen Pettit DIVER TENDER 02/24/2014 Nurse visit Nguyen Pettit DIVER TENDER 12/29/2013 Office visit Marilu Huffman DIVER TENDER 11/26/2013 Office visit Marilu Huffman DIVER TENDER
--- OUTSIDE RECORDS SUMMARY | 2017-06-23 19:18 | XMS REPORT ---
Author Author Kiara Stokes [facility] Address [address] [place] [id number] Care Team Providers Care Keg Washer Name Role Phone Kiara Stokes PCP Unavailable Marilu Huffman PreferredProvider Unavailable Allergies and Adverse Reactions Name Reaction Notes NO KNOWN DRUG ALLERGIES Plan of Treatment Planned Activity Comments Planned Date Planned Time Plan/Goal PFT 01/15/2017 12:00 AM UA with C&S, if indicated 03/12/2017 12:00 AM UA with C&S, if indicated 03/12/2017 12:00 AM Medications Active Name Start Date [...] Index 11/08/2016 4:20 PM BETA HCG QUANT 32829.0 mIU/mL 11/13/2016 5:18 PM BETA HCG QUANT 52358.0 mIU/mL 02/12/2017 10:06 AM Results Report Test [...] Vis Given Vis Pub CVX Influenza 02/12/2017 GlaxMy-Appsine SKB Fluarix [id number] Intramuscular Right Deltoid 02/12/2017 [...] 2017 8:12AM Dysuria Mar 12 2017 9:04AM Payers Insurance Name Company Name Plan Name Plan Number Policy Number Policy Group Number Start Date [employer] [place] [employer] [place] [id number] Sunday, 2012 History of Encounters Visit Date Visit Type Provider 03/12/[address] Kiara Stokes MD 02/20/[address] Aisha Marshall DO 02/12/[address] Kiara Stokes MD 01/15/[address] Aisha Marshall DO 01/15/[address] Kiara Stokes MD 12/18/[address] Kiara Stokes MD 11/20/[address] Kiara Stokes MD 11/08/[address] Kiara Stokes MD 10/24/2016 Office visit Ashley Del Rosario CLIENT SERVICE REPRESENTATIVE 01/26/2015 Nurse visit Marilu Huffman CLIENT SERVICE REPRESENTATIVE 12/15/2014 Office visit Sebas Ashby CLIENT SERVICE REPRESENTATIVE 11/01/2014 Nurse visit Marilu Huffman CLIENT SERVICE REPRESENTATIVE 08/10/2014 Office visit 08/10/2014 Office visit Marilu Huffman CLIENT SERVICE REPRESENTATIVE 07/14/2014 Office visit Marilu Huffman CLIENT SERVICE REPRESENTATIVE 06/18/2014 Office visit Nguyne Pettit CLIENT SERVICE REPRESENTATIVE 05/19/2014 Nurse visit Marilu Huffman CLIENT SERVICE REPRESENTATIVE 04/21/2014 Office visit Nguyen Pettit CLIENT SERVICE REPRESENTATIVE 02/24/2014 Nurse visit Nguyen Pettit CLIENT SERVICE REPRESENTATIVE 12/29/2013 Office visit Marilu Huffman CLIENT SERVICE REPRESENTATIVE 11/26/2013 Office visit Marilu Huffman CLIENT SERVICE REPRESENTATIVE
--- OUTSIDE RECORDS SUMMARY | 2017-06-23 19:18 | XMS REPORT ---
Author Author Kiara Stokes [facility] Address [address] [place] [id number] Care Team Providers Care Lower School Spanish Teacher Name Role Phone Kiara Stokes PCP Marilu Huffman PreferredProvider Allergies and Adverse Reactions Name Reaction Notes NO KNOWN DRUG ALLERGIES Plan of Treatment Planned Activity Comments Planned Date Planned Time Plan/Goal PFT 01/15/2017 12:00 AM GLUCOSE; TOLERANCE TEST 3 hr (GTT), 04/10/2017 12:00 AM Medications Active Name Start Date [...] 6 hours as needed for 30 days Bactrim DS 800-160 mg oral tablet 04/01/2017 take 1 tablet by oral route every 12 hours for 7 days Name Start Date Expiration Date SIG [...] by topical route 2 times per day Macrobid 100 mg oral capsule 03/12/2017 04/01/2017 take 1 capsule (100 mg) by oral route every 12 hours with food for 5 days Problem List Description Status Onset Asthma Active [...] PLUS IM Reviewed 03/12/2017 12:00 AM URINALYSIS Reviewed 03/12/2017 12:00 AM URINE CULTURE/COLONY COUNT Reviewed 03/25/2017 12:00 AM URNLS DIP STICK/TABLET REAGENT AUTO MICROSCOPY Reviewed 04/09/2017 12:00 AM RH IG FULL-DOSE IM Returned 04/09/2017 12:00 AM Type and screen Returned 04/09/2017 12:00 AM GLUCOSE TOLERANCE TEST (GTT) Returned 04/09/2017 12:00 AM COMPLETE CBC W/AUTO DIFF WBC Returned 04/09/2017 12:00 AM URINALYSIS AUTO W/SCOPE Returned 11/26/2013 12:00 AM THER/PROPH/DIAG INJ SC/IM Reviewed 11/26/2013 12:00 AM Depo Provera Injection, 150 mg, [facility] Medicaid Reviewed 02/24/2014 12:00 AM FLU VAC [...] 12:00 AM Depo Provera Injection, 150 mg, [facility] Medicaid Reviewed 12/15/2014 12:00 AM RADEX ANKLE [...] Index 11/08/2016 4:20 PM BETA HCG QUANT 85637.0 mIU/mL 11/13/2016 5:18 PM BETA HCG QUANT 41761.0 mIU/mL 02/12/2017 10:06 AM Results Report Test Results: *Screen Negative* Gest. Age on CollectionDate 19.4 Gestat. Age Based On Ultrasound Maternal Age At [age]IA 22.3 Race Weight 166.0 lbsInsulin Dep Diabetes No Multiple Gestation No AFP Value 63.0 AFP MoM 1.30 OSBR Risk 1 IN 4803 Interpretation COMMENT Comment: COMMENT PDF 0 03/12/2017 10:40 AM COLOR YELLOW APPEARANCE CLOUDY SPEC GRAV 1.025 pH 6.0 PROTEIN NEGATIVE GLUCOSE NEGATIVE mg/dLKETONE NEGATIVE BILIRUBIN NEGATIVE BLOOD TRACE-LYSED NITRITE NEGATIVE LEUK SCREEN LARGE MICRO INDICATED? SEE BELOW WBC/ HPF 20-50 RBC/HPF 0-5 CASTS/LPF NEGATIVE /LPFCRYSTALS TRACE CA OX MUCOUS THRDS FEW BACTERIA 4++++ EPITH CELLS 2++ SQUAMOUS /HPFTRICHOMONAS NEGATIVE YEAST NEGATIVE CULT SET UP? YES 03/26/2017 11:27 AM COLOR YELLOW APPEARANCE SL CLOUDY SPEC GRAV 1.020 pH 6.5 PROTEIN NEGATIVE GLUCOSE NEGATIVE mg/dLKETONE NEGATIVE BILIRUBIN NEGATIVE BLOOD NEGATIVE NITRITE POSITIVE LEUK SCREEN SMALL WBC/HPF 5-10 RBC/HPF NEGATIVE CASTS/ LPF NEGATIVE /LPFCRYSTALS NEGATIVE MUCOUS THRDS FEW BACTERIA 3+++ EPITH CELLS 1 + SQUAMOUS /HPFTRICHOMONAS NEGATIVE YEAST FEW BUDDING CULT ORDERED YES History Of Immunizations Name Date Admin Mfg [...] 2017 9:52AM Depression Mar 13 2017 9:52AM UTI (urinary tract infection) Mar 25 2017 4:26PM Normal first confirmed, currently in second trimester Apr 09 2017 9 :28AM UTI (urinary tract infection) Apr 09 2017 9:28AM Impaired glucose tolerance test (oral) Apr 10 2017 11:49AM Encounter for care of first , antepartum, second trimester Apr 10 2017 11:49AM Payers Insurance Name Company Name Plan Name Plan Number Policy Number Policy Group Number Start Date [facility] [place] [facility] [place] Plan [id number] Sunday, 2012 History of Encounters Visit Date Visit Type Provider 04/09/[address] Kiara Stokes MD 03/13/[address] Aisha Marshall DO [...] MD 10/24/2016 Office visit Ashley Del Rosario MARKET MANAGER 01/26/2015 Nurse visit Marilu Huffman MARKET MANAGER 12/15/2014 Office visit Sebas Ashby MARKET MANAGER 11/01/2014 Nurse visit Marilu Huffman MARKET MANAGER 08/10/2014 Office visit 08/10/2014 Office visit Marilu Huffman MARKET MANAGER 07/14/2014 Office visit Marilu Huffman MARKET MANAGER 06/18/2014 Office visit Nguyen Pettit MARKET MANAGER 05/19/2014 Nurse visit Marilu Huffman MARKET MANAGER 04/21/2014 Office visit Nguyen Pettit MARKET MANAGER 02/24/2014 Nurse visit Nguyen Pettit MARKET MANAGER 12/29/2013 Office visit Marilu Huffman MARKET MANAGER 11/26/2013 Office visit Marilu Huffman MARKET MANAGER
--- OUTSIDE RECORDS SUMMARY | 2017-06-23 19:19 | XMS REPORT ---
Author Author Ashley Del Rosario [facility] Address [address] [place], [place] [phone] Care Team Providers Care Tobacco Scrap Sifter Name Role Phone Ashley Del Rosario PCP Unavailable Marilu Huffman PreferredProvider Unavailable Allergies and Adverse Reactions Name Reaction Notes NO KNOWN DRUG ALLERGIES Plan of Treatment Planned Activity Comments Planned Date Planned Time Plan/Goal Gonorrhea 10/24/2016 12:00 AM Chlamydia 10/24/2016 12:00 AM HIV-1 antibody 10/24/2016 12:00 AM UA with Culture and Sensitivity 10/24/2016 12:00 AM Varicella antibodies 10/24/2016 12:00 AM panel (CBC with differential, automated, Hepatitis B surface antigen ( HBsAg), Rubella antibody, RBC antibody screen, Blood typing (ABO and Rh(D), RPR w/ Reflex to TP 10/24/2016 12:00 AM Herpes simplex virus (HSV) identification 10/24/2016 12:00 AM HEPATITIS C AB 10/24/2016 12:00 AM TRICHOMONAS AMPLIFIED 10/24/2016 12:00 AM Medications Name Start Date Expiration Date SIG [...] 10:37AM Vaginal lesion Oct 24 2016 10:37AM Payers Insurance Name Company Name Plan Name Plan Number Policy Number Policy Group Number Start Date [employer] [place] [employer] [place] [id number] Sunday, 2012 History of Encounters Visit Date Visit Type Provider 10/24/2016 Office visit Ashley Del Rosario INSPECTOR BALL POINTS 01/26/2015 Nurse visit Marilu Huffman INSPECTOR BALL POINTS 12/15/2014 Office visit Sebas Ashby INSPECTOR BALL POINTS 11/01/2014 Nurse visit Marilu Huffman INSPECTOR BALL POINTS 08/10/2014 Office visit 08/10/2014 Office visit Marilu Huffman INSPECTOR BALL POINTS 07/14/2014 Office visit Marilu Huffman INSPECTOR BALL POINTS 06/18/2014 Office visit Nguyen Pettit INSPECTOR BALL POINTS 05/19/2014 Nurse visit Marilu Huffman INSPECTOR BALL POINTS 04/21/2014 Office visit Nguyen Pettit INSPECTOR BALL POINTS 02/24/2014 Nurse visit Nguyen Pettit INSPECTOR BALL POINTS 12/29/2013 Office visit Marilu Huffman INSPECTOR BALL POINTS 11/26/2013 Office visit Marilu Huffman INSPECTOR BALL POINTS
--- OUTSIDE RECORDS SUMMARY | 2017-06-23 19:19 | XMS REPORT ---
Author Author Kiara Stokes [facility] Address [address] [place], [place] [address] Care Team Providers Care Votator Machine Operator Name Role Phone Kiara Stokes PCP Unavailable Marilu Huffman PreferredProvider Unavailable Allergies and Adverse Reactions Name Reaction Notes NO KNOWN DRUG ALLERGIES Plan of Treatment Planned Activity Comments Planned Date Planned Time Plan/Goal Ultrasound, OB complete >14 weeks 02/19/2017 12:00 AM PFT 01/15/2017 12:00 AM AFP ser maternal 02/12/2017 12:00 AM Medications Active Name Start Date Estimated Completion Date SIG Comments Vitamin oral tablet take 1 tablet by oral route once daily Flonase Allergy Relief 50 mcg/actuation nasal spray,suspension 01/15/2017 spray 1 spray (50 mcg) in each nostril by intranasal route once daily for 30 days Name Start Date Expiration [...] HC BMI BSA BMI Percentile O2 Sat(%) 01/15/2017 10:21:00 AM 115 mmHg 72 mmHg [...] AM Progenity Testing Reviewed 02/12/2017 12:00 AM IM ADM PRQ [...] Index 11/08/2016 4:20 PM BETA HCG QUANT 35031.0 mIU/mL 11/13/2016 5:18 PM BETA HCG QUANT 45637.0 mIU/mL History Of Immunizations Name Date Admin Mfg Name Mfg Code Trade Name Lot# Route Inj Vis Given Vis Pub CVX Influenza 02/12/2017 OrderAhead SKB Fluarix [id number] Intramuscular Right Deltoid 02/12/2017 [...] :58AM Flu Vaccine Feb 12 2017 9:04AM Payers Insurance Name Company Name Plan Name Plan Number Policy Number Policy Group Number Start Date [employer] [place] [employer] [place] [id number] Sunday, 2012 History of Encounters Visit Date Visit Type Provider 02/12/[address] Kiara Stokes MD 01/15/[address] Aisha Marshall DO 01/15/[address] Kiara Stokes MD 12/18/[address] Kiara Stokes MD 11/20/[address] Kiara Stokes MD 11/08/[address] Kiara Stokes MD 10/24/2016 Office visit Ashley Del Rosario ASSORTER 01/26/2015 Nurse visit Marilu Huffman ASSORTER 12/15/2014 Office visit Sebas Ashby ASSORTER 11/01/2014 Nurse visit Marilu Huffman ASSORTER 08/10/2014 Office visit 08/10/2014 Office visit Marilu Huffman ASSORTER 07/14/2014 Office visit Marilu Huffman ASSORTER 06/18/2014 Office visit Nguyen Pettit ASSORTER 05/19/2014 Nurse visit Marilu Huffman ASSORTER 04/21/2014 Office visit Nguyen Pettit ASSORTER 02/24/2014 Nurse visit Nguyen Pettit ASSORTER 12/29/2013 Office visit Marilu Huffman ASSORTER 11/26/2013 Office visit Marilu Huffman ASSORTER
[2017-06-23 19:20] VITALS: BP 131/81
--- OUTSIDE RECORDS SUMMARY | 2017-06-23 19:20 | XMS REPORT ---
Author Author Ashley Del Rosario [facility] Address [address] [place], [place] [phone] Care Team Providers Care Lawn Care Specialist Name Role Phone Ashley Del Rosario [...] Plan [employer] - [place] Plan [id number] Sunday, 2012 History of Encounters Visit Date Visit Type Provider 10/24/2016 Office visit Ashley Del Rosario HIDE MILL MAN 01/26/2015 Nurse visit Marilu Huffman HIDE MILL MAN 12/15/2014 Office visit Sebas Ashby HIDE MILL MAN 11/01/2014 Nurse visit Marilu Huffman HIDE MILL MAN 08/10/2014 Office visit 08/10/2014 Office visit Marilu Huffman HIDE MILL MAN 07/14/2014 Office visit Marilu Huffman HIDE MILL MAN 06/18/2014 Office visit Nguyen Pettit HIDE MILL MAN 05/19/2014 Nurse visit Marilu Huffman HIDE MILL MAN 04/21/2014 Office visit Nguyen Pettit HIDE MILL MAN 02/24/2014 Nurse visit Nguyen Pettit HIDE MILL MAN 12/29/2013 Office visit Marilu Huffman HIDE MILL MAN 11/26/2013 Office visit Marilu Huffman HIDE MILL MAN
--- OUTSIDE RECORDS SUMMARY | 2017-06-23 19:20 | XMS REPORT ---
Author Author Kiara Stokes [facility] Address [address] [place] [id number] Care Team Providers Care Line Servicer Name Role Phone Kiara Stokes PCP Unavailable [...] Index 11/08/2016 4:20 PM BETA HCG QUANT 05820.0 mIU/mL 11/13/2016 5:18 PM BETA HCG QUANT 78172.0 mIU/mL 02/12/2017 10:06 AM Results Report Test [...] Vis Given Vis Pub CVX Influenza 02/12/2017 GlaxNetwork Optixine SKB Fluarix [id number] Intramuscular Right Deltoid 02/12/2017 [...] Plan [employer] [place] [id number] Sunday, 2012 History of Encounters Visit Date [...] MD 10/24/2016 Office visit Ashley Del Rosario BODY COVERER 01/26/2015 Nurse visit Marilu Huffman BODY COVERER 12/15/2014 Office visit Sebas Ashby BODY COVERER 11/01/2014 Nurse visit Marilu Huffman BODY COVERER 08/10/2014 Office visit 08/10/2014 Office visit Marilu Huffman BODY COVERER 07/14/2014 Office visit Marilu Huffman BODY COVERER 06/18/2014 Office visit Nguyen Pettit BODY COVERER 05/19/2014 Nurse visit Marilu Huffman BODY COVERER 04/21/2014 Office visit Nguyen Pettit BODY COVERER 02/24/2014 Nurse visit Nguyen Pettit BODY COVERER 12/29/2013 Office visit Marilu Huffman BODY COVERER 11/26/2013 Office visit Marilu Huffman BODY COVERER
--- OUTSIDE RECORDS SUMMARY | 2017-06-23 19:20 | XMS REPORT ---
Author Author Marilu Huffman [facility] Address [address] [place], [place] [phone] Care Team Providers Care Manager Engagement Name Role Phone Marilu Huffman PCP Unavailable Allergies and Adverse Reactions Name Reaction Notes NO KNOWN DRUG ALLERGIES Plan of Treatment Not available. Medications Active Name Start Date Estimated Completion Date SIG Comments Depo-Provera intramuscular suspension 150 mg/mL 11/26/2013 inject 150 mg by intramuscular route every 3 months ProAir HFA inhalation HFA aerosol inhaler 90 mcg/actuation Name Start Date Expiration Date SIG Comments omeprazole oral capsule,delayed release(DR/EC) 40 mg 06/08/2014 01/28/2014 take 1 capsule daily amoxicillin oral capsule 500 mg 06/18/2014 06/28/2014 take 1 capsule (500 mg) by oral route 3 times per day for 10 days Discontinued Name Start Date Discontinued Date SIG Comments bupropion HBr oral 11/26/2013 montelukast oral tablet 10 mg 11/26/2013 take 1 tablet (10 mg) by oral route once daily in the evening Wellbutrin oral tablet 100 mg 04/21/2014 06/18/2014 take 1 tablet (100 mg) [...] of Procedures Date Ordered Description Order Status 11/26/2013 12:00 AM THER/PROPH/DIAG INJ SC/IM Reviewed [...] Left ankle pain Dec 15 2014 1:28PM Payers Insurance Name Company Name Plan Name Plan Number Policy Number Policy Group Number Start Date [employer] [place] [employer] [place] [id number] Sunday, 2012 History of Encounters Visit Date Visit Type Provider 12/15/2014 Office visit Sebas Ashby APRN 11/01/2014 Nurse visit Marilu Huffman CUSTOMER CARE VOICE CONSULTANT 08/10/2014 Office visit Marilu Huffman CUSTOMER CARE VOICE CONSULTANT 07/14/2014 Office visit Marilu Huffman CUSTOMER CARE VOICE CONSULTANT 06/18/2014 Office visit Nguyen Pettit CUSTOMER CARE VOICE CONSULTANT 05/19/2014 Nurse visit Marilu Huffman CUSTOMER CARE VOICE CONSULTANT 04/21/2014 Office visit Nguyen Pettit CUSTOMER CARE VOICE CONSULTANT 02/24/2014 Nurse visit Nguyen Pettit CUSTOMER CARE VOICE CONSULTANT 12/29/2013 Office visit Marilu Huffman CUSTOMER CARE VOICE CONSULTANT 11/26/2013 Office visit Marilu Huffman CUSTOMER CARE VOICE CONSULTANT
--- OUTSIDE RECORDS SUMMARY | 2017-06-23 19:21 | XMS REPORT ---
Author Author Kiara Stokes [facility] Address [address] [place], [place] [id number] Care Team Providers Care Therapy Technician Name Role Phone Kiara Stokes PCP Unavailable [...] Plan [employer] [place] State Plan [id number] Sunday, 2012 History of Encounters Visit Date Visit Type Provider 11/08/[address] Kiara Stokes MD 10/24/2016 Office visit Ashley Del Rosario CITY WELLNESS COORDINATOR 01/26/2015 Nurse visit Marilu Huffman CITY WELLNESS COORDINATOR 12/15/2014 Office visit Sebas Ashby CITY WELLNESS COORDINATOR 11/01/2014 Nurse visit Marilu Huffman CITY WELLNESS COORDINATOR 08/10/2014 Office visit 08/10/2014 Office visit Marilu Huffman CITY WELLNESS COORDINATOR 07/14/2014 Office visit Marilu Huffman CITY WELLNESS COORDINATOR 06/18/2014 Office visit Nguyen Pettit CITY WELLNESS COORDINATOR 05/19/2014 Nurse visit Marilu Huffman CITY WELLNESS COORDINATOR 04/21/2014 Office visit Nguyen Pettit CITY WELLNESS COORDINATOR 02/24/2014 Nurse visit Nguyen Pettit CITY WELLNESS COORDINATOR 12/29/2013 Office visit Marilu Huffman CITY WELLNESS COORDINATOR 11/26/2013 Office visit Marilu Huffman CITY WELLNESS COORDINATOR
--- OUTSIDE RECORDS SUMMARY | 2017-06-23 19:21 | XMS REPORT ---
Author Author Kiara Stokes [facility] Address [address] [place] [id number] Care Team Providers Care Needle Molder Name Role Phone Kiara Stokes PCP Marilu Huffman PreferredProvider Allergies and Adverse Reactions Name Reaction Notes NO KNOWN DRUG ALLERGIES Plan of Treatment Planned Activity Comments Planned Date Planned Time Plan/Goal PFT 01/15/2017 12:00 AM Rhogam 04/09/2017 12:00 AM 1 hour glucose tolerance test 04/09/2017 12:00 AM CBC + platelets + diff auto 04/09/2017 12:00 AM URINALYSIS W/MICRO C&S IF IND 04/09/2017 12:00 AM Medications Active Name Start Date [...] URNLS DIP STICK/TABLET REAGENT AUTO MICROSCOPY Reviewed 11/26/2013 12:00 AM THER/PROPH/DIAG INJ SC/IM [...] Index 11/08/2016 4:20 PM BETA HCG QUANT 37756.0 mIU/mL 11/13/2016 5:18 PM BETA HCG QUANT 78256.0 mIU/mL 02/12/2017 10:06 AM Results Report Test [...] (urinary tract infection) Apr 09 2017 9:28AM Payers Insurance Name Company Name Plan Name Plan Number Policy Number Policy Group Number Start Date [employer] [place] [employer] [place] [id number] Sunday, 2012 History of Encounters Visit Date [...] MD 10/24/2016 Office visit Ashley Del Rosario HEALTHCARE TECHNICIAN 01/26/2015 Nurse visit Marilu Huffman HEALTHCARE TECHNICIAN 12/15/2014 Office visit Sebas Ashby HEALTHCARE TECHNICIAN 11/01/2014 Nurse visit Marilu Huffman HEALTHCARE TECHNICIAN 08/10/2014 Office visit 08/10/2014 Office visit Marilu Huffman HEALTHCARE TECHNICIAN 07/14/2014 Office visit Marilu Huffman HEALTHCARE TECHNICIAN 06/18/2014 Office visit Nguyen Pettit HEALTHCARE TECHNICIAN 05/19/2014 Nurse visit Marilu Huffman HEALTHCARE TECHNICIAN 04/21/2014 Office visit Nguyen Pettit HEALTHCARE TECHNICIAN 02/24/2014 Nurse visit Nguyen Pettit HEALTHCARE TECHNICIAN 12/29/2013 Office visit Marilu Huffman HEALTHCARE TECHNICIAN 11/26/2013 Office visit Marilu Huffman HEALTHCARE TECHNICIAN
--- OUTSIDE RECORDS SUMMARY | 2017-06-23 19:22 | XMS REPORT ---
Author Aisha Beal [facility] Address [address] [place] [id number] Care Team Providers Care Salon Customer Experience Specialist Name Role Phone Aisha Marshall PCP Marilu [...] Index 11/08/2016 4:20 PM BETA HCG QUANT 70754.0 mIU/mL 11/13/2016 5:18 PM BETA HCG QUANT 09219.0 mIU/mL 02/12/2017 10:06 AM Results Report Test [...] Vis Given Vis Pub CVX Influenza 02/12/2017 GlaxoSmRep[employer]en[employer]line SKB Fluarix [id number] Intramuscular Right Deltoid 02/12/2017 [...] Plan [employer] [place] State Plan [id number] Sunday, 2012 History of Encounters Visit Date [...] MD 10/24/2016 Office visit Ashley Del Rosario NATURAL RESOURCES EXTENSION EDUCATOR 01/26/2015 Nurse visit Marilu Huffman NATURAL RESOURCES EXTENSION EDUCATOR 12/15/2014 Office visit Sebas Ashby NATURAL RESOURCES EXTENSION EDUCATOR 11/01/2014 Nurse visit Marilu Huffman NATURAL RESOURCES EXTENSION EDUCATOR 08/10/2014 Office visit 08/10/2014 Office visit Marilu Huffman NATURAL RESOURCES EXTENSION EDUCATOR 07/14/2014 Office visit Marilu Huffman NATURAL RESOURCES EXTENSION EDUCATOR 06/18/2014 Office visit Nguyen Pettit NATURAL RESOURCES EXTENSION EDUCATOR 05/19/2014 Nurse visit Marilu Huffman NATURAL RESOURCES EXTENSION EDUCATOR 04/21/2014 Office visit Nguyen Pettit NATURAL RESOURCES EXTENSION EDUCATOR 02/24/2014 Nurse visit Nguyen Pettit NATURAL RESOURCES EXTENSION EDUCATOR 12/29/2013 Office visit Marilu Huffman NATURAL RESOURCES EXTENSION EDUCATOR 11/26/2013 Office visit Marilu Huffman NATURAL RESOURCES EXTENSION EDUCATOR
--- OUTSIDE RECORDS SUMMARY | 2017-06-23 19:22 | XMS REPORT ---
Author Author Kiara Stokes [facility] Address [address] [place] [id number] Care Team Providers Care Picu Nurse Name Role Phone Kiara Stokes PCP Marilu [...] Index 11/08/2016 4:20 PM BETA HCG QUANT 63570.0 mIU/mL 11/13/2016 5:18 PM BETA HCG QUANT 67742.0 mIU/mL 02/12/2017 10:06 AM Results Report Test [...] Plan [employer] [place] [id number] Sunday, 2012 History of Encounters Visit Date [...] MD 10/24/2016 Office visit Ashley Del Rosario DIRECTOR CLIENT SERVICES 01/26/2015 Nurse visit Marilu Huffman DIRECTOR CLIENT SERVICES 12/15/2014 Office visit Sebas Ashby DIRECTOR CLIENT SERVICES 11/01/2014 Nurse visit Marilu Huffman DIRECTOR CLIENT SERVICES 08/10/2014 Office visit 08/10/2014 Office visit Marilu Huffman DIRECTOR CLIENT SERVICES 07/14/2014 Office visit Marilu Huffman DIRECTOR CLIENT SERVICES 06/18/2014 Office visit Nguyen Pettit DIRECTOR CLIENT SERVICES 05/19/2014 Nurse visit Marilu Huffman DIRECTOR CLIENT SERVICES 04/21/2014 Office visit Nguyen Pettit DIRECTOR CLIENT SERVICES 02/24/2014 Nurse visit Nguyen Pettit DIRECTOR CLIENT SERVICES 12/29/2013 Office visit Marilu Huffman DIRECTOR CLIENT SERVICES 11/26/2013 Office visit Marilu Huffman DIRECTOR CLIENT SERVICES
--- OUTSIDE RECORDS SUMMARY | 2017-06-23 19:23 | XMS REPORT ---
Author Author Kiara Stokes [facility] Address [address] [place], [place] [address] Care Team Providers Care Weather Forecaster Name Role Phone Kiara Stokes PCP Unavailable Marilu Huffman PreferredProvider Unavailable Allergies and Adverse Reactions Name Reaction Notes NO KNOWN DRUG ALLERGIES Plan of Treatment Not available. Medications Active Name Start Date Estimated Completion Date SIG Comments Vitamin oral tablet take 1 tablet by oral route once daily Zofran (as hydrochloride) 8 mg oral tablet 11/28/2016 Take 1/2 tablet every 4-6 hours as needed for nausea/vomiting Name Start Date Expiration Date SIG Comments [...] 11/08/2016 12:00 AM CHORIONIC GONADOTROPIN ASSAY Reviewed 11/26/2013 12:00 AM THER/PROPH/DIAG INJ SC/IM [...] Index 11/08/2016 4:20 PM BETA HCG QUANT 89937.0 mIU/mL 11/13/2016 5:18 PM BETA HCG QUANT 78417.0 mIU/mL History Of Immunizations Not available. History [...] - [place] State Plan [employer] - [employer] State Plan [id number] Sunday, 2012 History of Encounters Visit Date Visit Type Provider 12/18/[address] Kiara Stokes MD 11/20/[address] Kiara Stokes MD 11/08/[address] Kiara Stokes MD 10/24/2016 Office visit Ashley Del Rosario STEEL PLACER 01/26/2015 Nurse visit Marilu Huffman STEEL PLACER 12/15/2014 Office visit Sebas Ashby STEEL PLACER 11/01/2014 Nurse visit Marilu Huffman STEEL PLACER 08/10/2014 Office visit 08/10/2014 Office visit Marilu Huffman STEEL PLACER 07/14/2014 Office visit Marilu Huffman STEEL PLACER 06/18/2014 Office visit Nguyen Pettit STEEL PLACER 05/19/2014 Nurse visit Marilu Huffman STEEL PLACER 04/21/2014 Office visit Nguyen Pettit STEEL PLACER 02/24/2014 Nurse visit Nguyen Pettit STEEL PLACER 12/29/2013 Office visit Marilu Huffman STEEL PLACER 11/26/2013 Office visit Marilu Huffman STEEL PLACER
--- OUTSIDE RECORDS SUMMARY | 2017-06-23 19:23 | XMS REPORT ---
Author Author Kiara Stokes [facility] Address [address] [place], [place] [phone] Care Team Providers Care Intermodal Customer Service Name Role Phone Kiara Stokes PCP Unavailable [...] Index 11/08/2016 4:20 PM BETA HCG QUANT 49064.0 mIU/mL 11/13/2016 5:18 PM BETA HCG QUANT 53794.0 mIU/mL History Of Immunizations Name Date Admin Mfg Name Mfg Code Trade Name Lot# Route Inj Vis Given Vis Pub CVX Influenza 02/12/2017 Pluromed SKB Fluarix [id number] Intramuscular Right Deltoid 02/12/2017 [...] Plan [employer] [place] [id number] Sunday, 2012 History of Encounters Visit Date Visit Type Provider 02/12/[address] Kiara Stokes MD 01/15/[address] Aisha Marshall DO 01/15/[address] Kiara Stokes MD 12/18/[address] Kiara Stokes MD 11/20/[address] Kiara Stokes MD 11/08/[address] Kiara Stokes MD 10/24/2016 Office visit Ashley Del Rosario INSTALLMENT DEALER 01/26/2015 Nurse visit Marilu Huffman INSTALLMENT DEALER 12/15/2014 Office visit Sebas Ashby INSTALLMENT DEALER 11/01/2014 Nurse visit Marilu Huffman INSTALLMENT DEALER 08/10/2014 Office visit 08/10/2014 Office visit Marilu Huffman INSTALLMENT DEALER 07/14/2014 Office visit Marilu Huffman INSTALLMENT DEALER 06/18/2014 Office visit Nguyen Pettit INSTALLMENT DEALER 05/19/2014 Nurse visit Marilu Huffman INSTALLMENT DEALER 04/21/2014 Office visit Nguyen Pettit INSTALLMENT DEALER 02/24/2014 Nurse visit Nguyen Pettit INSTALLMENT DEALER 12/29/2013 Office visit Marilu Huffman INSTALLMENT DEALER 11/26/2013 Office visit Marilu Huffman INSTALLMENT DEALER
--- OUTSIDE RECORDS SUMMARY | 2017-06-23 19:24 | XMS REPORT ---
Author Author Kiara Stokes [facility] Address [address] [place] [id number] Care Team Providers Care Retread Builder Name Role Phone Kiara Stokes PCP Unavailable [...] Index 11/08/2016 4:20 PM BETA HCG QUANT 87076.0 mIU/mL 11/13/2016 5:18 PM BETA HCG QUANT 88110.0 mIU/mL 02/12/2017 10:06 AM Results Report Test [...] Vis Given Vis Pub CVX Influenza 02/12/2017 GlaxCallisionine SKB Fluarix [id number] Intramuscular Right Deltoid 02/12/2017 [...] Plan [employer] [place] [id number] Sunday, 2012 History of Encounters Visit Date [...] MD 10/24/2016 Office visit Ashley Del Rosario LIVESTOCK FEEDER 01/26/2015 Nurse visit Marilu Huffman LIVESTOCK FEEDER 12/15/2014 Office visit Sebas Ashby LIVESTOCK FEEDER 11/01/2014 Nurse visit Marilu Huffman LIVESTOCK FEEDER 08/10/2014 Office visit 08/10/2014 Office visit Marilu Huffman LIVESTOCK FEEDER 07/14/2014 Office visit Marilu Huffman LIVESTOCK FEEDER 06/18/2014 Office visit Nguyen Pettit LIVESTOCK FEEDER 05/19/2014 Nurse visit Marilu Huffman LIVESTOCK FEEDER 04/21/2014 Office visit Nguyen Pettit LIVESTOCK FEEDER 02/24/2014 Nurse visit Nguyen Pettit LIVESTOCK FEEDER 12/29/2013 Office visit Marilu Huffman LIVESTOCK FEEDER 11/26/2013 Office visit Marilu Huffman LIVESTOCK FEEDER
--- OUTSIDE RECORDS SUMMARY | 2017-06-23 19:24 | XMS REPORT ---
Author Author Kiara Stokes [facility] Address [address] [place], [place] [phone] Care Team Providers Care Weather Reporter Name Role Phone Kiara Stokes PCP Unavailable [...] Index 11/08/2016 4:20 PM BETA HCG QUANT 96757.0 mIU/mL 11/13/2016 5:18 PM BETA HCG QUANT 24525.0 mIU/mL History Of Immunizations Name Date Admin Mfg Name Mfg Code Trade Name Lot# Route Inj Vis Given Vis Pub CVX Influenza 02/12/2017 [employer] SKB Fluarix [id number] Intramuscular Right Deltoid 02/12/2017 [...] Plan [employer] [place] [id number] Sunday, 2012 History of Encounters Visit Date Visit Type Provider 02/12/[address] Kiara Stokes MD 01/15/[address] Aisha Marshall DO 01/15/[address] Kiara Stokes MD 12/18/[address] Kiara Stokes MD 11/20/[address] Kiara Stokes MD 11/08/[address] Kiara Stokes MD 10/24/2016 Office visit Ashley Del Rosario COMMANDING OFFICER MOTORIZED SQUAD 01/26/2015 Nurse visit Marilu Huffman COMMANDING OFFICER MOTORIZED SQUAD 12/15/2014 Office visit Sebas Ashby COMMANDING OFFICER MOTORIZED SQUAD 11/01/2014 Nurse visit Marilu Huffman COMMANDING OFFICER MOTORIZED SQUAD 08/10/2014 Office visit 08/10/2014 Office visit Marilu Huffman COMMANDING OFFICER MOTORIZED SQUAD 07/14/2014 Office visit Marilu Huffman COMMANDING OFFICER MOTORIZED SQUAD 06/18/2014 Office visit Nguyen Pettit COMMANDING OFFICER MOTORIZED SQUAD 05/19/2014 Nurse visit Marilu Huffamn COMMANDING OFFICER MOTORIZED SQUAD 04/21/2014 Office visit Nguyen Pettit COMMANDING OFFICER MOTORIZED SQUAD 02/24/2014 Nurse visit Nguyen Pettit COMMANDING OFFICER MOTORIZED SQUAD 12/29/2013 Office visit Marilu Huffman COMMANDING OFFICER MOTORIZED SQUAD 11/26/2013 Office visit Marilu Huffman COMMANDING OFFICER MOTORIZED SQUAD
--- OUTSIDE RECORDS SUMMARY | 2017-06-23 19:24 | XMS REPORT ---
Author Author Kiara Stokes [facility] Address [address] [place], [place] [id number] Care Team Providers Care Freight Car Inspector Name Role Phone Kiara Stokes PCP Unavailable [...] Index 11/08/2016 4:20 PM BETA HCG QUANT 81989.0 mIU/mL 11/13/2016 5:18 PM BETA HCG QUANT 50578.0 mIU/mL History Of Immunizations Not available. History [...] first trimester Dec 18 2016 9: 28AM Payers Insurance Name Company Name Plan Name Plan Number Policy Number Policy Group Number Start Date [employer] [place] [employer] [place] [id number] Sunday, 2012 History of Encounters Visit Date Visit Type Provider 12/18/[address] Kiara Stokes MD 11/20/[address] Kiara Stokes MD 11/08/[address] Kiara Stokes MD 10/24/2016 Office visit Ashley Del Rosario RECOATER 01/26/2015 Nurse visit Marilu Huffman RECOATER 12/15/2014 Office visit Sebas Ashby RECOATER 11/01/2014 Nurse visit Marilu Huffman RECOATER 08/10/2014 Office visit 08/10/2014 Office visit Marilu Huffman RECOATER 07/14/2014 Office visit Marilu Huffman RECOATER 06/18/2014 Office visit Nguyen Pettit RECOATER 05/19/2014 Nurse visit Marilu Huffman RECOATER 04/21/2014 Office visit Nguyen Pettit RECOATER 02/24/2014 Nurse visit Nguyen Pettit RECOATER 12/29/2013 Office visit Marilu Huffman RECOATER 11/26/2013 Office visit Marilu Huffman RECOATER
--- OUTSIDE RECORDS SUMMARY | 2017-06-23 19:25 | XMS REPORT ---
Author Author Kiara Stokes [facility] Address [address] [place] [id number] Care Team Providers Care Group Home Worker Name Role Phone Kiara Stokes PCP Marilu [...] 12:00 AM Depo Provera Injection, 150 mg, [facility] Medicaid Reviewed 02/24/2014 12:00 AM FLU VAC [...] 12:00 AM Depo Provera Injection, 150 mg, [facility] Medicaid Reviewed 12/15/2014 12:00 AM RADEX ANKLE [...] Index 11/08/2016 4:20 PM BETA HCG QUANT 93183.0 mIU/mL 11/13/2016 5:18 PM BETA HCG QUANT 79971.0 mIU/mL 02/12/2017 10:06 AM Results Report Test [...] Policy Number Policy Group Number Start Date [facility] [place] [facility] [place] [id number] Sunday, 2012 History of Encounters Visit Date Visit Type Provider 04/09/[address] Kiara Stokes MD 03/13/[address] Aisha Marshall DO 03/12/[address] Kiara Sotkes MD 02/20/[address] Aisha Marshall DO 02/12/[address] Kiara Stokes MD 01/15/[address] Aisha Marshall DO 01/15/[address] Kiara Stokes MD 12/18/[address] Kiara Stokes MD 11/20/[address] Kiara Stokes MD 11/08/[address] Kiara Stokes MD 10/24/2016 Office visit Ashley Del Rosario PLASTIC FRAME INSERTER 01/26/2015 Nurse visit Marilu Huffman PLASTIC FRAME INSERTER 12/15/2014 Office visit Sebas Ashby PLASTIC FRAME INSERTER 11/01/2014 Nurse visit Marilu Huffman PLASTIC FRAME INSERTER 08/10/2014 Office visit 08/10/2014 Office visit Marilu Huffman PLASTIC FRAME INSERTER 07/14/2014 Office visit Marilu Huffman PLASTIC FRAME INSERTER 06/18/2014 Office visit Nguyen Pettit PLASTIC FRAME INSERTER 05/19/2014 Nurse visit Marilu Huffman PLASTIC FRAME INSERTER 04/21/2014 Office visit Nguyen Pettit PLASTIC FRAME INSERTER 02/24/2014 Nurse visit Nguyen Pettit PLASTIC FRAME INSERTER 12/29/2013 Office visit Marilu Huffman PLASTIC FRAME INSERTER 11/26/2013 Office visit Marilu Huffman PLASTIC FRAME INSERTER
--- OUTSIDE RECORDS SUMMARY | 2017-06-23 19:25 | XMS REPORT ---
Author Author Marilu Huffman [facility] Address [address] [place], [place] [address] Care Team Providers Care Hollow Tile Partition Erector Name Role Phone Marilu Huffman PCP Unavailable [...] HC BMI BSA BMI Percentile O2 Sat(%) 08/10/2014 9:49:00 AM 120 mmHg 80 mmHg [...] 11/26/2013 12:00 AM THER/PROPH/DIAG INJ SC/IM Reviewed 02/24/2014 12:00 AM FLU VAC NO PRSV 4 YARA 3 YRS+ Reviewed 07/15/2014 12:00 AM COMPLETE CBC W/AUTO DIFF WBC Returned 07/15/2014 12:00 AM COMPREHEN METABOLIC PANEL Returned 07/15/2014 12:00 AM X-RAY EXAM OF ABDOMEN Returned 08/10/2014 12:00 AM THER/PROPH/DIAG INJ SC/IM Reviewed 08/10/2014 12:00 AM PULMONARY COMPLIANCE STUDY Returned 11/01/2014 12:00 AM THER/PROPH/DIAG INJ SC/IM Reviewed Results Summary Data and Description Results 07/15/2014 [...] 9:52AM Contraception management Nov 01 2014 9:36AM Payers Insurance Name Company Name Plan Name Plan Number Policy Number Policy Group Number Start Date [employer] [facility] [place] [employer] [facility] [place] [id number] Sunday, 2012 History of Encounters Visit Date Visit Type Provider 11/01/2014 Nurse visit Marilu Huffman APRN 08/10/2014 Office visit Marilu Huffman APRN 07/14/2014 Office visit Marilu Huffman APRN 06/18/2014 Office visit Nguyen Pettit LAND SURVEYOR ASSISTANT 05/19/2014 Nurse visit Marilu Huffman APRN 04/21/2014 Office visit Nguyen Pettit APRN 02/24/2014 Nurse visit Nguyen Pettit LAND SURVEYOR ASSISTANT 12/29/2013 Office visit Marilu Huffman APRN 11/26/2013 Office visit Marilu Huffman LAND SURVEYOR ASSISTANT
--- OUTSIDE RECORDS SUMMARY | 2017-06-23 19:26 | XMS REPORT ---
Author Author Kiara Stokes [facility] Address [address] [place], [place] [phone] Care Team Providers Care Medical Claims Analyst Name Role Phone Kiara Stokes PCP Unavailable [...] Index 11/08/2016 4:20 PM BETA HCG QUANT 70893.0 mIU/mL 11/13/2016 5:18 PM BETA HCG QUANT 42733.0 mIU/mL History Of Immunizations Not available. History [...] Plan [employer] [place] Plan [id number] Sunday, 2012 History of Encounters Visit Date Visit Type Provider 11/20/[address] Kiara Stokes MD 11/08/[address] Kiara Stokes MD 10/24/2016 Office visit Ashley Del Rosario REIMBURSEMENT COORDINATOR 01/26/2015 Nurse visit Marilu Huffman REIMBURSEMENT COORDINATOR 12/15/2014 Office visit Sebas Ashby REIMBURSEMENT COORDINATOR 11/01/2014 Nurse visit Marilu Huffman REIMBURSEMENT COORDINATOR 08/10/2014 Office visit 08/10/2014 Office visit Marilu Huffman REIMBURSEMENT COORDINATOR 07/14/2014 Office visit Marilu Huffman REIMBURSEMENT COORDINATOR 06/18/2014 Office visit Nguyen Pettit REIMBURSEMENT COORDINATOR 05/19/2014 Nurse visit Mariul Huffman REIMBURSEMENT COORDINATOR 04/21/2014 Office visit Nguyen Pettit REIMBURSEMENT COORDINATOR 02/24/2014 Nurse visit Nguyen Pettit REIMBURSEMENT COORDINATOR 12/29/2013 Office visit Marilu Huffman REIMBURSEMENT COORDINATOR 11/26/2013 Office visit Marilu Huffman REIMBURSEMENT COORDINATOR
--- OUTSIDE RECORDS SUMMARY | 2017-06-23 19:26 | XMS REPORT ---
Author Author Aisha Marshall [facility] Address [address] [place] [id number] Care Team Providers Care Portable Trackman Name Role Phone Aisha Marshall PCP Marilu [...] Index 11/08/2016 4:20 PM BETA HCG QUANT 13961.0 mIU/mL 11/13/2016 5:18 PM BETA HCG QUANT 93668.0 mIU/mL History Of Immunizations Name Date Admin [...] Plan [employer] [place] Plan [id number] Sunday, 2012 History of Encounters Visit Date [...] MD 10/24/2016 Office visit Ashley Del Rosario ACID STRENGTH INSPECTOR 01/26/2015 Nurse visit Marilu Huffman ACID STRENGTH INSPECTOR 12/15/2014 Office visit Sebas Ashby ACID STRENGTH INSPECTOR 11/01/2014 Nurse visit Marilu Huffman ACID STRENGTH INSPECTOR 08/10/2014 Office visit 08/10/2014 Office visit Marilu Huffman ACID STRENGTH INSPECTOR 07/14/2014 Office visit Marilu Huffman ACID STRENGTH INSPECTOR 06/18/2014 Office visit Nguyen Pettit ACID STRENGTH INSPECTOR 05/19/2014 Nurse visit Marilu Huffman ACID STRENGTH INSPECTOR 04/21/2014 Office visit Nguyen Pettit ACID STRENGTH INSPECTOR 02/24/2014 Nurse visit Nguyen Pettit ACID STRENGTH INSPECTOR 12/29/2013 Office visit Marilu Huffman ACID STRENGTH INSPECTOR 11/26/2013 Office visit Marilu Huffman ACID STRENGTH INSPECTOR
--- OUTSIDE RECORDS SUMMARY | 2017-06-23 19:27 | XMS REPORT ---
Author Author Kiara Stokes [facility] Address [address] [place], [place] [address] Care Team Providers Care Body Technician Name Role Phone Kiara Stokes PCP Unavailable Marilu Huffman PreferredProvider Unavailable Allergies and Adverse Reactions Name Reaction Notes NO KNOWN DRUG ALLERGIES Plan of Treatment Planned Activity Comments Planned Date Planned Time Plan/Goal Ultrasound, OB complete >14 weeks 02/19/2017 12:00 AM Medications Active Name Start Date Estimated Completion Date SIG Comments Vitamin oral tablet take 1 tablet by oral route once daily Zofran (as hydrochloride) 8 mg oral tablet 11/28/2016 Take 1/2 tablet every 4-6 hours as needed for nausea/vomiting nystatin 100,000 unit/gram topical powder 12/18/2016 apply to the affected area(s) by topical route 2 times per day Name Start Date Expiration Date SIG Comments [...] Reviewed 12/18/2016 12:00 AM Progenity Testing Reviewed 11/26/2013 12:00 AM THER/PROPH/DIAG INJ SC/IM [...] Index 11/08/2016 4:20 PM BETA HCG QUANT 25047.0 mIU/mL 11/13/2016 5:18 PM BETA HCG QUANT 75234.0 mIU/mL History Of Immunizations Not available. History [...] second trimester Jan 15 2017 9 :08AM Payers Insurance Name Company Name Plan Name Plan Number Policy Number Policy Group Number Start Date [employer] [place] [employer] [place] [id number] Sunday, 2012 History of Encounters Visit Date Visit Type Provider 01/15/[address] Kiara Stokes MD 12/18/[address] Kiara Stokes MD 11/20/[address] Kiara Stokes MD 11/08/[address] Kiara Stokes MD 10/24/2016 Office visit Ashley Del Rosario PELT INSPECTOR 01/26/2015 Nurse visit Marilu Huffman PELT INSPECTOR 12/15/2014 Office visit Sebas Ashby PELT INSPECTOR 11/01/2014 Nurse visit Marilu Huffman PELT INSPECTOR 08/10/2014 Office visit 08/10/2014 Office visit Marilu Huffman PELT INSPECTOR 07/14/2014 Office visit Marilu Huffman PELT INSPECTOR 06/18/2014 Office visit Nguyen Pettit PELT INSPECTOR 05/19/2014 Nurse visit Marilu Huffman PELT INSPECTOR 04/21/2014 Office visit Nguyen Pettit PELT INSPECTOR 02/24/2014 Nurse visit Nguyen Pettit PELT INSPECTOR 12/29/2013 Office visit Marilu Huffman PELT INSPECTOR 11/26/2013 Office visit Marilu Huffman PELT INSPECTOR
--- OUTSIDE RECORDS SUMMARY | 2017-06-23 19:27 | XMS REPORT ---
Author Author Aisha Marshall [facility] Address [address] [place] [id number] Care Team Providers Care Plant Maintenance Mechanic Name Role Phone Aisha Marshall PCP Marilu [...] Index 11/08/2016 4:20 PM BETA HCG QUANT 35575.0 mIU/mL 11/13/2016 5:18 PM BETA HCG QUANT 36413.0 mIU/mL History Of Immunizations Name Date Admin [...] Plan [employer] - [place] State Plan [id number] Sunday, 2012 History of Encounters Visit Date [...] MD 10/24/2016 Office visit Ashley Del Rosario TSA SCREENER 01/26/2015 Nurse visit Marilu Huffman TSA SCREENER 12/15/2014 Office visit Sebas Ashby TSA SCREENER 11/01/2014 Nurse visit Marilu Huffman TSA SCREENER 08/10/2014 Office visit 08/10/2014 Office visit Marilu Huffman TSA SCREENER 07/14/2014 Office visit Marilu Huffman TSA SCREENER 06/18/2014 Office visit Nguyen Pettit TSA SCREENER 05/19/2014 Nurse visit Marilu Huffman TSA SCREENER 04/21/2014 Office visit Nguyen Pettit TSA SCREENER 02/24/2014 Nurse visit Nguyen Pettit TSA SCREENER 12/29/2013 Office visit Marilu Huffman TSA SCREENER 11/26/2013 Office visit Marilu Huffman TSA SCREENER
--- OUTSIDE RECORDS SUMMARY | 2017-06-23 19:27 | XMS REPORT ---
Author Author Kiara Stokes [facility] Address [address] [place], [place] [address] Care Team Providers Care Coal Sampler Name Role Phone Kiara Stokes PCP Unavailable [...] Plan [employer] - [place] State Plan [id number] Sunday, 2012 History of Encounters Visit Date Visit Type Provider 11/08/[address] Kiara Stokes MD 10/24/2016 Office visit Ashley Del Rosario MANAGER OF TIRES SALES 01/26/2015 Nurse visit Marilu Huffman MANAGER OF TIRES SALES 12/15/2014 Office visit Sebas Ashby MANAGER OF TIRES SALES 11/01/2014 Nurse visit Marilu Huffman MANAGER OF TIRES SALES 08/10/2014 Office visit 08/10/2014 Office visit Marilu Huffman MANAGER OF TIRES SALES 07/14/2014 Office visit Marilu Huffman MANAGER OF TIRES SALES 06/18/2014 Office visit Nguyen Pettit MANAGER OF TIRES SALES 05/19/2014 Nurse visit Marilu Huffman MANAGER OF TIRES SALES 04/21/2014 Office visit Nguyen Pettit MANAGER OF TIRES SALES 02/24/2014 Nurse visit Nguyen Pettit MANAGER OF TIRES SALES 12/29/2013 Office visit Marilu Huffman MANAGER OF TIRES SALES 11/26/2013 Office visit Marilu Huffman MANAGER OF TIRES SALES
--- OUTSIDE RECORDS SUMMARY | 2017-06-23 19:28 | XMS REPORT ---
Author Author Kiara Stokes [facility] Address [address] [place], [place] [id number] Care Team Providers Care Visual Merchandiser Name Role Phone Kiara Stokes PCP Unavailable [...] Index 11/08/2016 4:20 PM BETA HCG QUANT 54130.0 mIU/mL 11/13/2016 5:18 PM BETA HCG QUANT 64474.0 mIU/mL History Of Immunizations Not available. History [...] Plan [employer] - [place] State Plan [id number] Sunday, 2012 History of Encounters Visit Date Visit Type Provider 11/20/[address] Kiara Stokes MD 11/08/[address] Kiara Stokes MD 10/24/2016 Office visit Ashley Del Rosario ADULT LIVE IN CAREGIVER 01/26/2015 Nurse visit Marilu Huffman ADULT LIVE IN CAREGIVER 12/15/2014 Office visit Sebas Ashby ADULT LIVE IN CAREGIVER 11/01/2014 Nurse visit Marilu Huffman ADULT LIVE IN CAREGIVER 08/10/2014 Office visit 08/10/2014 Office visit Marilu Huffman ADULT LIVE IN CAREGIVER 07/14/2014 Office visit Marilu Huffman ADULT LIVE IN CAREGIVER 06/18/2014 Office visit Nguyen Pettit ADULT LIVE IN CAREGIVER 05/19/2014 Nurse visit Marilu Huffman ADULT LIVE IN CAREGIVER 04/21/2014 Office visit Nguyen Pettit ADULT LIVE IN CAREGIVER 02/24/2014 Nurse visit Nguyen Pettit ADULT LIVE IN CAREGIVER 12/29/2013 Office visit Marilu Huffman ADULT LIVE IN CAREGIVER 11/26/2013 Office visit Marilu Huffman ADULT LIVE IN CAREGIVER
--- OUTSIDE RECORDS SUMMARY | 2017-06-23 19:28 | XMS REPORT ---
Author Author Aisha Marshall [facility] Address [address] [place] [id number] Care Team Providers Care Cuff Maker Name Role Phone Aisha Marshall PCP Marilu [...] Index 11/08/2016 4:20 PM BETA HCG QUANT 33254.0 mIU/mL 11/13/2016 5:18 PM BETA HCG QUANT 90034.0 mIU/mL History Of Immunizations Name Date Admin [...] Plan [employer] [facility] [place] [id number] Sunday, 2012 History of Encounters Visit Date [...] MD 10/24/2016 Office visit Ashley Del Rosario WASTE RECLAIMER 01/26/2015 Nurse visit Marilu Huffman WASTE RECLAIMER 12/15/2014 Office visit Sebas Ashby WASTE RECLAIMER 11/01/2014 Nurse visit Marilu Huffman WASTE RECLAIMER 08/10/2014 Office visit 08/10/2014 Office visit Marilu Huffman WASTE RECLAIMER 07/14/2014 Office visit Marilu Huffman WASTE RECLAIMER 06/18/2014 Office visit Nguyen Pettit WASTE RECLAIMER 05/19/2014 Nurse visit Marilu Huffman WASTE RECLAIMER 04/21/2014 Office visit Nguyen Pettit WASTE RECLAIMER 02/24/2014 Nurse visit Nguyen Pettit WASTE RECLAIMER 12/29/2013 Office visit Marilu Huffman WASTE RECLAIMER 11/26/2013 Office visit Marilu Huffman WASTE RECLAIMER
--- OUTSIDE RECORDS SUMMARY | 2017-06-23 19:29 | XMS REPORT ---
Author Author Aisha Marshall [facility] Address [address] [place], [place] [address] Care Team Providers Care Cadastral Surveyor Name Role Phone Aisha Marshall PCP Marilu [...] Index 11/08/2016 4:20 PM BETA HCG QUANT 64500.0 mIU/mL 11/13/2016 5:18 PM BETA HCG QUANT 10085.0 mIU/mL History Of Immunizations Not available. History [...] Shortness of breath Jan 15 2017 10:25AM Payers Insurance Name Company Name Plan Name Plan Number Policy Number Policy Group Number Start Date [employer] [place] [employer] [place] [id number] Sunday, 2012 History of Encounters Visit Date Visit Type Provider 01/15/[address] Aisha Marshall DO 01/15/[address] Kiara Stokes MD 12/18/[address] Kiara Stokes MD 11/20/[address] Kiara Stokes MD 11/08/[address] Kiara Stokes MD 10/24/2016 Office visit Ashley Del Rosario INTERNAL COMMUNICATIONS SPECIALIST 01/26/2015 Nurse visit Marilu Huffman INTERNAL COMMUNICATIONS SPECIALIST 12/15/2014 Office visit Sebas Ashby INTERNAL COMMUNICATIONS SPECIALIST 11/01/2014 Nurse visit Marilu Huffman INTERNAL COMMUNICATIONS SPECIALIST 08/10/2014 Office visit 08/10/2014 Office visit Marilu Huffman INTERNAL COMMUNICATIONS SPECIALIST 07/14/2014 Office visit Marilu Huffman INTERNAL COMMUNICATIONS SPECIALIST 06/18/2014 Office visit Nguyen Pettit INTERNAL COMMUNICATIONS SPECIALIST 05/19/2014 Nurse visit Marilu Huffman INTERNAL COMMUNICATIONS SPECIALIST 04/21/2014 Office visit Nguyen Pettit INTERNAL COMMUNICATIONS SPECIALIST 02/24/2014 Nurse visit Nguyen Pettit INTERNAL COMMUNICATIONS SPECIALIST 12/29/2013 Office visit Marilu Huffman INTERNAL COMMUNICATIONS SPECIALIST 11/26/2013 Office visit Marilu Huffman INTERNAL COMMUNICATIONS SPECIALIST
--- OUTSIDE RECORDS SUMMARY | 2017-06-23 19:29 | XMS REPORT ---
Author Author Kiara Stokes [facility] Address [address] [place], [place] [address] Care Team Providers Care Audit Senior Associate Name Role Phone Kiara Stokes PCP Unavailable [...] Index 11/08/2016 4:20 PM BETA HCG QUANT 76626.0 mIU/mL 11/13/2016 5:18 PM BETA HCG QUANT 85842.0 mIU/mL History Of Immunizations Not available. History [...] Plan [employer] [place] [id number] Sunday, 2012 History of Encounters Visit Date Visit Type Provider 12/18/[address] Kiraa Stokes MD 11/20/[address] Kiara Stokes MD 11/08/[address] Kiara Stokes MD 10/24/2016 Office visit Ashley Del Rosario ACADEMIC AFFAIRS ASSISTANT 01/26/2015 Nurse visit Marilu Huffman ACADEMIC AFFAIRS ASSISTANT 12/15/2014 Office visit Sebas Ashby ACADEMIC AFFAIRS ASSISTANT 11/01/2014 Nurse visit Marilu Huffman ACADEMIC AFFAIRS ASSISTANT 08/10/2014 Office visit 08/10/2014 Office visit Marilu Huffman ACADEMIC AFFAIRS ASSISTANT 07/14/2014 Office visit Marilu Huffman ACADEMIC AFFAIRS ASSISTANT 06/18/2014 Office visit Nguyen Pettit ACADEMIC AFFAIRS ASSISTANT 05/19/2014 Nurse visit Marilu Huffman ACADEMIC AFFAIRS ASSISTANT 04/21/2014 Office visit Nguyen Pettit ACADEMIC AFFAIRS ASSISTANT 02/24/2014 Nurse visit Nguyen Pettit ACADEMIC AFFAIRS ASSISTANT 12/29/2013 Office visit Marilu Huffman ACADEMIC AFFAIRS ASSISTANT 11/26/2013 Office visit Marilu Huffman ACADEMIC AFFAIRS ASSISTANT
--- OUTSIDE RECORDS SUMMARY | 2017-06-23 19:30 | XMS REPORT ---
Author Author Aisha Marshall [facility] Address [address] [place] [id number] Care Team Providers Care Train Gateman Name Role Phone Aisah Marshall PCP Marilu Huffman PreferredProvider Unavailable Allergies [...] Index 11/08/2016 4:20 PM BETA HCG QUANT 96591.0 mIU/mL 11/13/2016 5:18 PM BETA HCG QUANT 47292.0 mIU/mL History Of Immunizations Name Date Admin [...] Plan [employer] [place] [id number] Sunday, 2012 History of Encounters Visit Date [...] MD 10/24/2016 Office visit Ashley Del Rosario SUPPLY PLANNER 01/26/2015 Nurse visit Marilu Huffman SUPPLY PLANNER 12/15/2014 Office visit Sebas Ashby SUPPLY PLANNER 11/01/2014 Nurse visit Marilu Huffman SUPPLY PLANNER 08/10/2014 Office visit 08/10/2014 Office visit Marilu Hufmfan SUPPLY PLANNER 07/14/2014 Office visit Marilu Huffman SUPPLY PLANNER 06/18/2014 Office visit Nguyen Pettit SUPPLY PLANNER 05/19/2014 Nurse visit Marilu Huffman SUPPLY PLANNER 04/21/2014 Office visit Nguyen Pettit SUPPLY PLANNER 02/24/2014 Nurse visit Nguyen Pettit SUPPLY PLANNER 12/29/2013 Office visit Marilu Huffman SUPPLY PLANNER 11/26/2013 Office visit Marilu Huffman SUPPLY PLANNER
--- OUTSIDE RECORDS SUMMARY | 2017-06-23 19:30 | XMS REPORT ---
Author Author Kiara Stokes [facility] Address [address] [place] [id number] Care Team Providers Care Maintenance Painter Name Role Phone Kiara Stokes PCP Marilu [...] Index 11/08/2016 4:20 PM BETA HCG QUANT 30405.0 mIU/mL 11/13/2016 5:18 PM BETA HCG QUANT 89117.0 mIU/mL 02/12/2017 10:06 AM Results Report Test [...] Plan [employer] [facility] [place] [id number] Sunday, 2012 History of Encounters Visit Date [...] MD 10/24/2016 Office visit Ashley Del Rosario FEATHER STITCHER 01/26/2015 Nurse visit Marilu Huffman FEATHER STITCHER 12/15/2014 Office visit Sebas Ashby FEATHER STITCHER 11/01/2014 Nurse visit Marilu Huffman FEATHER STITCHER 08/10/2014 Office visit 08/10/2014 Office visit Marilu Huffman FEATHER STITCHER 07/14/2014 Office visit Marilu Huffman FEATHER STITCHER 06/18/2014 Office visit Nguyen Pettit FEATHER STITCHER 05/19/2014 Nurse visit Marilu Huffman FEATHER STITCHER 04/21/2014 Office visit Nguyen Pettit FEATHER STITCHER 02/24/2014 Nurse visit Nguyen Pettit FEATHER STITCHER 12/29/2013 Office visit Marilu Huffman FEATHER STITCHER 11/26/2013 Office visit Marilu Huffman FEATHER STITCHER
[2017-06-23] MEDS ORDERED: AMPICILLIN INJECTION 2,000 MG in NS (IVPB) 50 ML IV SCH (19:31)
--- OUTSIDE RECORDS SUMMARY | 2017-06-23 19:31 | XMS REPORT | CCD ---
Author Author ALONZO RANDALL Unknown Address [address] [place] [address] Care Team Providers Care Sas Bi Developer Name Role Phone SUSU BRINK MD Attphys SUSU BRINK MD Prisurg Allergies Unknown or Not Available. Active Medications Unknown or Not Available. Problems Unknown or Not Available. Procedures Procedure Code Procedure Type Date ^UA WITH MICRO 915697279 SNOMED CT 08/14/2016 ^CBC W/AUTO DIFF 2854867 SNOMED CT 08/14/2016 TEST URINE 935172457 SNOMED CT 08/14/2016 UA ROUTINE C&S IF IND [id number] SNOMED CT 08/14/2016 C REACTIVE PROTEIN 75415472 SNOMED CT 08/14/2016 CBC W/ AUTO DIFF (RFLX MAN DIFF IF IND) 2786927 SNOMED CT 08/14/2016 Results CBC W/ AUTO DIFF (RFLX MAN DIFF IF IND) - Collect Date/Time: 08/14/2016 22:09 Test Name Code Test Result Test Units Test Ref Range WBC 91660-2 9.1 TH/CMM L=4.5 H=10.8 RBC 789-8 4.28 ML/CMM L=4.20 H=5.40 HGB 718-7 12.2 G/DL L=12.0 H=16.0 HCT 4544-3 37.9 % L=37.0 H=47.0 MCV 89 FL L=81 H=99 MCH 28.5 PG L=27.0 H=33.0 MCHC 32.2 G/DL L=31.0 H=36.0 RDW SD 41 FL L=36 H=50 RDW CV 12.6 % L=0.0 H=14.8 MPV 11.5 FL L=9.3 H=12.5 PLT 777-3 266 TH/CMM L=130 H=440 NRBC# 0.00 TH/CMM L=0.00 H=0.00 NRBC% 0.0 /100WBC L=0.0 H=2.0 %NEUT 58.3 % %LYMP 31.6 % %MONO 7.2 % %EOS 2.0 % %BASO 0.6 % #NEUT 5.29 TH/CMM L=2.10 H=8.20 #LYMP 2.86 TH/CMM L=0.90 H=5.20 #MONO 0.65 TH/CMM L=0.16 H=1.00 #EOS 0.18 TH/CMM L=0.00 H=0.80 #BASO 0.05 TH/CMM L=0.00 H=0.20 MANUAL DIFF NOT IND N/A UA ROUTINE C&S IF IND - Collect Date/Time: 08/14/2016 22:12 Test Name Code Test Result Test Units Test Ref Range COLOR YELLOW N/A NL: YELLOW APPEARANCE CLEAR N/A NL: CLEAR SPEC GRAV >=1.030 N/A NL: 1.002 - 1.022 pH 5.5 N/A NL: 5 - 9 PROTEIN TRACE N/A NL: NEGATIVE mg/dl GLUCOSE NEGATIVE N/A NL: NEGATIVE mg/dl KETONE NEGATIVE N/A NL: NEGATIVE mg/dl BILIRUBIN NEGATIVE N/A NL: NEGATIVE BLOOD TRACE-INTACT N/A NL: NEGATIVE NITRITE NEGATIVE N/A NL: NEGATIVE LEUK SCREEN NEGATIVE N/A NL: NEGATIVE MICRO INDICATED? SEE BELOW N/A WBC/HPF RARE N/A NL: NEGATIVE RBC/HPF 0-5 N/A NL: NEGATIVE CASTS/LPF NEGATIVE N/A NL: NEGATIVE CRYSTALS NEGATIVE N/A NL: NEGATIVE MUCOUS THRDS 3+++ N/A NL: NEGATIVE BACTERIA FEW N/A NL: NEGATIVE EPITH CELLS 1+ SQUAMOUS N/A NL: NEGATIVE TRICHOMONAS NEGATIVE N/A NL: NEGATIVE YEAST NEGATIVE N/A NL: NEGATIVE CULT SET UP? NO N/A C REACTIVE PROTEIN - Collect Date/Time: 08/14/2016 22:09 Test Name Code Test Result Test Units Test Ref Range C REACTIVE PROTEIN 1988-5 <0.5 MG/DL L=0.0 H= 1.0 TEST URINE - Collect Date/Time: 08/14/2016 22:12 Test Name Code Test Result Test Units Test Ref Range TEST UR 2106-3 NEGATIVE N/A Function Status Unknown or Not Available. History of Immunizations Immunization Code Date DTP 1997 OPV 02 1997 OPV 1997 OPV 02 06/13/1998 OPV 02 01/23/2002 MMR 03 06/13/1998 MMR 03 01/23/2002 Hep B, adolescent or pediatric 08 1997 Hep B, adolescent or pediatric 08 1997 Hep B, adolescent or pediatric 08 1997 influenza, split (incl. purified surface antigen) 15 03/07/2011 Hib, unspecified formulation 17 1997 Hib, unspecified formulation 17 1997 Hib, unspecified formulation 17 1997 Hib, unspecified formulation 17 06/13/1998 DTaP 20 06/13/1998 varicella 21 06/13/1998 varicella 21 03/14/2010 HPV, quadrivalent 62 01/04/2010 HPV, quadrivalent 62 03/06/2010 HPV, quadrivalent 62 08/02/2010 Hep A, ped/adol, 2 dose 83 10/05/2013 influenza, unspecified formulation 88 1997 influenza, unspecified formulation 88 03/06/2010 meningococcal MCV4P 114 01/04/2010 Tdap 115 12/02/2006 Tdap 115 02/09/2009 Novel [id number] 127 03/10/2009 influenza, injectable, quadrivalent 158 02/24/2014 Plan of Treatment Unknown or Not Available. Social History Smoking Status Code Start Date End Date Never smoker [id number] Vital Signs Unknown or Not Available. Function Status Unknown or Not Available. Goals Unknown or Not Available. ASSESSMENTS Unknown or Not Available. Health Concerns Section Unknown or Not Available.
--- OUTSIDE RECORDS SUMMARY | 2017-06-23 19:31 | XMS REPORT ---
Author Author Aisha Marshall [facility] Address [address] [place], [place] [address] Care Team Providers Care Craft Superintendent Name Role Phone Aisha Marshall PCP Marilu Huffman PreferredProvider Unavailable Allergies and Adverse Reactions Name Reaction Notes NO KNOWN DRUG ALLERGIES Plan of Treatment Planned Activity Comments Planned Date Planned Time Plan/Goal PFT 01/15/2017 12:00 AM Urinalysis with C/S 03/25/2017 12:00 AM Medications Active Name Start Date [...] 03/12/2017 12:00 AM URINE CULTURE/COLONY COUNT Reviewed 11/26/2013 12:00 AM THER/PROPH/DIAG INJ SC/IM [...] Index 11/08/2016 4:20 PM BETA HCG QUANT 45569.0 mIU/mL 11/13/2016 5:18 PM BETA HCG QUANT 44898.0 mIU/mL 02/12/2017 10:06 AM Results Report Test [...] NEGATIVE YEAST NEGATIVE CULT SET UP? YES History Of Immunizations Name Date Admin [...] (urinary tract infection) Mar 25 2017 4:26PM Payers Insurance Name Company Name Plan Name Plan Number Policy Number Policy Group Number Start Date [employer] [place] [employer] [place] [id number] Sunday, 2012 History of Encounters Visit Date Visit Type Provider 03/13/[address] Aisha Marshall DO 03/12/[address] Kiara Stokes MD 02/20/[address] Aisha Marshall DO 02/12/[address] Kiara Stkoes MD 01/15/[address] Aisha Marshall DO 01/15/[address] Kiara Stokes MD 12/18/[address] Kiara Stokes MD 11/20/[address] Kiara Stokes MD 11/08/[address] Kiara Stokes MD 10/24/2016 Office visit Ashley Del Rosario PORCELAIN ENAMEL REPAIRER 01/26/2015 Nurse visit Marilu Huffman PORCELAIN ENAMEL REPAIRER 12/15/2014 Office visit Sebas Ashby PORCELAIN ENAMEL REPAIRER 11/01/2014 Nurse visit Marilu Huffman PORCELAIN ENAMEL REPAIRER 08/10/2014 Office visit 08/10/2014 Office visit Marilu Huffman PORCELAIN ENAMEL REPAIRER 07/14/2014 Office visit Marilu Huffman PORCELAIN ENAMEL REPAIRER 06/18/2014 Office visit Nguyen Pettit PORCELAIN ENAMEL REPAIRER 05/19/2014 Nurse visit Marilu Huffman PORCELAIN ENAMEL REPAIRER 04/21/2014 Office visit Nguyen Pettit PORCELAIN ENAMEL REPAIRER 02/24/2014 Nurse visit Nguyen Pettit PORCELAIN ENAMEL REPAIRER 12/29/2013 Office visit Marilu Huffman PORCELAIN ENAMEL REPAIRER 11/26/2013 Office visit Marilu Huffman PORCELAIN ENAMEL REPAIRER
--- OUTSIDE RECORDS SUMMARY | 2017-06-23 19:32 | XMS REPORT ---
Author Author Kiara Stokes [facility] Address [address] [place], [place] [phone] Care Team Providers Care Slot Machine Repairer Name Role Phone Kiara Stokes PCP Unavailable [...] Index 11/08/2016 4:20 PM BETA HCG QUANT 54849.0 mIU/mL 11/13/2016 5:18 PM BETA HCG QUANT 46173.0 mIU/mL History Of Immunizations Name Date Admin Mfg Name Mfg Code Trade Name Lot# Route Inj Vis Given Vis Pub CVX Influenza 02/12/2017 Dynamic Yield SKB Fluarix [id number] Intramuscular Right Deltoid 02/12/2017 [...] Plan [employer] - [place] Plan [id number] Sunday, 2012 History of Encounters Visit Date Visit Type Provider 02/12/[address] Kiara Stokes MD 01/15/[address] Aisha Marshall DO 01/15/[address] Kiara Stokes MD 12/18/[address] Kiara Stokes MD 11/20/[address] Kiara Stokes MD 11/08/[address] Kiara Stokes MD 10/24/2016 Office visit Ashley Del Rosario BORE MINER OPERATOR 01/26/2015 Nurse visit Marilu Huffman BORE MINER OPERATOR 12/15/2014 Office visit Sebas Ashby BORE MINER OPERATOR 11/01/2014 Nurse visit Marilu Huffman BORE MINER OPERATOR 08/10/2014 Office visit 08/10/2014 Office visit Marilu Huffman BORE MINER OPERATOR 07/14/2014 Office visit Marilu Huffman BORE MINER OPERATOR 06/18/2014 Office visit Nguyen Pettit BORE MINER OPERATOR 05/19/2014 Nurse visit Marilu Huffman BORE MINER OPERATOR 04/21/2014 Office visit Nguyen Pettit BORE MINER OPERATOR 02/24/2014 Nurse visit Nguyen Pettit BORE MINER OPERATOR 12/29/2013 Office visit Marilu Huffman BORE MINER OPERATOR 11/26/2013 Office visit Marilu Huffman BORE MINER OPERATOR
--- OUTSIDE RECORDS SUMMARY | 2017-06-23 19:32 | XMS REPORT ---
Author Author Kiara Stokes [facility] Address [address] [place], [place] [address] Care Team Providers Care Cost Manager Name Role Phone Kiara Stokes PCP Unavailable [...] Index 11/08/2016 4:20 PM BETA HCG QUANT 24741.0 mIU/mL 11/13/2016 5:18 PM BETA HCG QUANT 62143.0 mIU/mL History Of Immunizations Not available. History [...] Plan [employer] [place] [id number] Sunday, 2012 History of Encounters Visit Date Visit Type Provider 12/18/[address] Kiara Stokes MD 11/20/[address] Kiara Stokes MD 11/08/[address] Kiara Stokes MD 10/24/2016 Office visit Ashley Del Rosario MIRROR SPECIALIST 01/26/2015 Nurse visit Marilu Huffman MIRROR SPECIALIST 12/15/2014 Office visit Sebas Ashby MIRROR SPECIALIST 11/01/2014 Nurse visit Marilu Huffman MIRROR SPECIALIST 08/10/2014 Office visit 08/10/2014 Office visit Marilu Huffman MIRROR SPECIALIST 07/14/2014 Office visit Marilu Huffman MIRROR SPECIALIST 06/18/2014 Office visit Nguyen Pettit MIRROR SPECIALIST 05/19/2014 Nurse visit Marilu Huffman MIRROR SPECIALIST 04/21/2014 Office visit Nguyen Pettit MIRROR SPECIALIST 02/24/2014 Nurse visit Nguyen Pettit MIRROR SPECIALIST 12/29/2013 Office visit Marilu Huffman MIRROR SPECIALIST 11/26/2013 Office visit Marilu Huffman MIRROR SPECIALIST
--- OUTSIDE RECORDS SUMMARY | 2017-06-23 19:33 | XMS REPORT ---
Author Author Aisha Marshall [facility] Address [address] [place], [place] [address] Care Team Providers Care Sales Estimator Name Role Phone Aisha Marshall PCP Marilu [...] Index 11/08/2016 4:20 PM BETA HCG QUANT 53624.0 mIU/mL 11/13/2016 5:18 PM BETA HCG QUANT 11142.0 mIU/mL History Of Immunizations Not available. History [...] Plan [employer] - [place] Plan [id number] Sunday, 2012 History of Encounters Visit Date Visit Type Provider 01/15/[address] Aisha Marshall DO 01/15/[address] Kiara Stokes MD 12/18/[address] Kiara Stokes MD 11/20/[address] Kiara Stokes MD 11/08/[address] Kiara Stokes MD 10/24/2016 Office visit Ashley Del Rosario FABRIC WORKER SUPERVISOR 01/26/2015 Nurse visit Marilu Huffman FABRIC WORKER SUPERVISOR 12/15/2014 Office visit Sebas Ashby FABRIC WORKER SUPERVISOR 11/01/2014 Nurse visit Marilu Huffman FABRIC WORKER SUPERVISOR 08/10/2014 Office visit 08/10/2014 Office visit Marilu Huffman FABRIC WORKER SUPERVISOR 07/14/2014 Office visit Marilu Huffman FABRIC WORKER SUPERVISOR 06/18/2014 Office visit Nguyen Pettit FABRIC WORKER SUPERVISOR 05/19/2014 Nurse visit Marilu Huffman FABRIC WORKER SUPERVISOR 04/21/2014 Office visit Nguyen Pettit FABRIC WORKER SUPERVISOR 02/24/2014 Nurse visit Nguyen Pettit FABRIC WORKER SUPERVISOR 12/29/2013 Office visit Marilu Huffman FABRIC WORKER SUPERVISOR 11/26/2013 Office visit Marilu Huffman FABRIC WORKER SUPERVISOR
--- OUTSIDE RECORDS SUMMARY | 2017-06-23 19:33 | XMS REPORT ---
Author Author Kiara Stokes [facility] Address [address] [place] [id number] Care Team Providers Care Concrete Rubber Name Role Phone Kiara Stokes PCP Marilu [...] Index 11/08/2016 4:20 PM BETA HCG QUANT 30400.0 mIU/mL 11/13/2016 5:18 PM BETA HCG QUANT 70742.0 mIU/mL 02/12/2017 10:06 AM Results Report Test [...] Plan [employer] [place] Plan [id number] Sunday, 2012 History of Encounters Visit Date [...] MD 10/24/2016 Office visit Ashley Del Rosario ELDERLY COMPANION 01/26/2015 Nurse visit Marilu Huffman ELDERLY COMPANION 12/15/2014 Office visit Sebas Ashby ELDERLY COMPANION 11/01/2014 Nurse visit Marilu Huffman ELDERLY COMPANION 08/10/2014 Office visit 08/10/2014 Office visit Marilu Huffman ELDERLY COMPANION 07/14/2014 Office visit Marilu Huffman ELDERLY COMPANION 06/18/2014 Office visit Nguyen Pettit ELDERLY COMPANION 05/19/2014 Nurse visit Marilu Huffman ELDERLY COMPANION 04/21/2014 Office visit Nguyen Pettit ELDERLY COMPANION 02/24/2014 Nurse visit Nguyen Pettit ELDERLY COMPANION 12/29/2013 Office visit Marilu Huffman ELDERLY COMPANION 11/26/2013 Office visit Marilu Huffman ELDERLY COMPANION
--- OUTSIDE RECORDS SUMMARY | 2017-06-23 19:34 | XMS REPORT ---
Author Author Kiara Stokes [facility] Address [address] [place], [place] [address] Care Team Providers Care Wool Fleece Sorter Name Role Phone Kiara Stokes PCP Unavailable [...] Index 11/08/2016 4:20 PM BETA HCG QUANT 95292.0 mIU/mL 11/13/2016 5:18 PM BETA HCG QUANT 91249.0 mIU/mL History Of Immunizations Not available. History [...] Plan [employer] - [facility] [place] State Plan [id number] Sunday, 2012 History of Encounters Visit Date Visit Type Provider 12/18/[address] Kiara Stokes MD 11/20/[address] Kiara Stokes MD 11/08/[address] Kiara Stokes MD 10/24/2016 Office visit Ashley Del Rosario HEALTH COORDINATOR 01/26/2015 Nurse visit Marilu Huffman HEALTH COORDINATOR 12/15/2014 Office visit Sebas Ashby HEALTH COORDINATOR 11/01/2014 Nurse visit Marilu Huffman HEALTH COORDINATOR 08/10/2014 Office visit 08/10/2014 Office visit Marilu Huffman HEALTH COORDINATOR 07/14/2014 Office visit Marilu Huffman HEALTH COORDINATOR 06/18/2014 Office visit Nguyen Pettit HEALTH COORDINATOR 05/19/2014 Nurse visit Marilu Huffman HEALTH COORDINATOR 04/21/2014 Office visit Nguyen Pettit HEALTH COORDINATOR 02/24/2014 Nurse visit Nguyen Pettit HEALTH COORDINATOR 12/29/2013 Office visit Marilu Huffman HEALTH COORDINATOR 11/26/2013 Office visit Marilu Huffman HEALTH COORDINATOR
--- OUTSIDE RECORDS SUMMARY | 2017-06-23 19:34 | XMS REPORT ---
Author Author Kiara Stokes [facility] Address [address] [place], [place] [address] Care Team Providers Care Sole Edge Inker Machine Name Role Phone Kiara Stokes PCP Unavailable [...] Index 11/08/2016 4:20 PM BETA HCG QUANT 14076.0 mIU/mL 11/13/2016 5:18 PM BETA HCG QUANT 35200.0 mIU/mL History Of Immunizations Name Date Admin Mfg Name Mfg Code Trade Name Lot# Route Inj Vis Given Vis Pub CVX Influenza 02/12/2017 [employer] SKB Fluarix [id number] Intramuscular Right Deltoid 02/12/2017 [...] Plan [employer] [facility] [place] State Plan [id number] Sunday, 2012 History of Encounters Visit Date Visit Type Provider 02/12/[address] Kiara Stokes MD 01/15/[address] Aisha Marshall DO 01/15/[address] Kiara Stokes MD 12/18/[address] Kiara Stokes MD 11/20/[address] Kiara Stokes MD 11/08/[address] Kiara Stokes MD 10/24/2016 Office visit Ashley Del Rosario TOW TRUCK OPERATOR 01/26/2015 Nurse visit Marilu Huffman TOW TRUCK OPERATOR 12/15/2014 Office visit Sebas Ashby TOW TRUCK OPERATOR 11/01/2014 Nurse visit Marilu Huffman TOW TRUCK OPERATOR 08/10/2014 Office visit 08/10/2014 Office visit Marilu Huffman TOW TRUCK OPERATOR 07/14/2014 Office visit Marilu Huffman TOW TRUCK OPERATOR 06/18/2014 Office visit Nguyne Pettit TOW TRUCK OPERATOR 05/19/2014 Nurse visit Marilu Huffman TOW TRUCK OPERATOR 04/21/2014 Office visit Nguyen Pettit TOW TRUCK OPERATOR 02/24/2014 Nurse visit Nguyen Pettit TOW TRUCK OPERATOR 12/29/2013 Office visit Marilu Huffman TOW TRUCK OPERATOR 11/26/2013 Office visit Marilu Huffman TOW TRUCK OPERATOR
--- OUTSIDE RECORDS SUMMARY | 2017-06-23 19:34 | XMS REPORT ---
Author Author Kiara Stokes [facility] Address [address] [place], [place] [address] Care Team Providers Care College Coach Name Role Phone Kiara Stokes PCP Unavailable [...] Index 11/08/2016 4:20 PM BETA HCG QUANT 60107.0 mIU/mL 11/13/2016 5:18 PM BETA HCG QUANT 21567.0 mIU/mL History Of Immunizations Not available. History [...] Plan [employer] [facility] State Plan [id number] Sunday, 2012 History of Encounters Visit Date Visit Type Provider 01/15/[address] Kiara Stokes MD 12/18/[address] Kiara Stokes MD 11/20/[address] Kiara Stokes MD 11/08/[address] Kiara Stokes MD 10/24/2016 Office visit Ashley Del Rosario POSTDOCTORAL SCHOLAR 01/26/2015 Nurse visit Marilu Huffman POSTDOCTORAL SCHOLAR 12/15/2014 Office visit Sebas Ashby POSTDOCTORAL SCHOLAR 11/01/2014 Nurse visit Marilu Huffman POSTDOCTORAL SCHOLAR 08/10/2014 Office visit 08/10/2014 Office visit Marilu Huffman POSTDOCTORAL SCHOLAR 07/14/2014 Office visit Marilu Huffman POSTDOCTORAL SCHOLAR 06/18/2014 Office visit Nguyen Pettit POSTDOCTORAL SCHOLAR 05/19/2014 Nurse visit Marilu Huffman POSTDOCTORAL SCHOLAR 04/21/2014 Office visit Nguyen Pettit POSTDOCTORAL SCHOLAR 02/24/2014 Nurse visit Nguyen Pettit POSTDOCTORAL SCHOLAR 12/29/2013 Office visit Marilu Huffman APRN 11/26/2013 Office visit Marilu Huffman APRN
--- OUTSIDE RECORDS SUMMARY | 2017-06-23 19:35 | XMS REPORT ---
Author Author Kiara Stokes [facility] Address [address] [place], [place] [address] Care Team Providers Care Mrp Controller Name Role Phone Kiara Stokes PCP Unavailable [...] Index 11/08/2016 4:20 PM BETA HCG QUANT 22516.0 mIU/mL 11/13/2016 5:18 PM BETA HCG QUANT 02535.0 mIU/mL History Of Immunizations Not available. History [...] Plan [employer] [facility] [place] State Plan [id number] Sunday, 2012 History of Encounters Visit Date Visit Type Provider 01/15/[address] Kiara Stokes MD 12/18/[address] Kiara Stokes MD 11/20/[address] Kiara Stokes MD 11/08/[address] Kiara Stokes MD 10/24/2016 Office visit Ashley Del Rosario WHITE GOODS APPLIANCE TECH 01/26/2015 Nurse visit Marilu Huffman WHITE GOODS APPLIANCE TECH 12/15/2014 Office visit Sebas Ashby WHITE GOODS APPLIANCE TECH 11/01/2014 Nurse visit Marilu Huffman WHITE GOODS APPLIANCE TECH 08/10/2014 Office visit 08/10/2014 Office visit Marilu Huffman WHITE GOODS APPLIANCE TECH 07/14/2014 Office visit Marilu Huffman WHITE GOODS APPLIANCE TECH 06/18/2014 Office visit Nguyen Pettit WHITE GOODS APPLIANCE TECH 05/19/2014 Nurse visit Marilu Huffman WHITE GOODS APPLIANCE TECH 04/21/2014 Office visit Nguyen Pettit WHITE GOODS APPLIANCE TECH 02/24/2014 Nurse visit Nguyen Pettit WHITE GOODS APPLIANCE TECH 12/29/2013 Office visit Marilu Huffman WHITE GOODS APPLIANCE TECH 11/26/2013 Office visit Marilu Huffman WHITE GOODS APPLIANCE TECH
--- OUTSIDE RECORDS SUMMARY | 2017-06-23 19:35 | XMS REPORT | Continuity of Care Document ---
Author Author [facility] Address Unknown Phone Unavailable Allergies There is no data. Medications There is no data. Problems There is no data. Procedures There is no data. Results There is no data. Encounters ACCT No. Visit Date/Time Discharge Status Pt. Type Provider Facility Loc./Unit Complaint [id number] 04/09/2017 10:15:59 04/09/2017 23:59:59 CLS Outpatient KikeKiara william [id number] 03/13/2017 10:34:53 03/13/2017 23:59:59 CLS Outpatient Aisha Marshall [id number] 03/12/2017 09:47:28 03/12/2017 23:59:59 CLS Outpatient KikeKiara william [id number] 02/20/2017 08:52:24 02/20/2017 23:59:59 CLS Outpatient Aisha Marshall [id number] 02/12/2017 09:42:29 02/12/2017 23:59:59 CLS Outpatient KikeKiara william [id number] 01/15/2017 10:38:27 01/15/2017 23:59:59 CLS Outpatient Aisha Marshall [id number] 01/15/2017 09:53:50 01/15/2017 23:59:59 CLS Outpatient Kiara Stokes [id number] 12/18/2016 09:56:11 12/18/2016 23:59:59 CLS Outpatient KiekKiara william [id number] 11/20/2016 10:08:22 11/20/2016 23:59:59 CLS Outpatient Kiara Stokes [id number] 11/08/2016 09:51:58 11/08/2016 23:59:59 CLS Outpatient Kiara Stokes [id number] 10/30/2016 08:56:49 10/30/2016 23:59:59 CLS Outpatient Ashley Del Rosario [id number] 01/26/2015 16:56:44 01/26/2015 23:59:59 CLS Outpatient Marilu Huffman [id number] 12/15/2014 14:14:59 12/15/2014 23:59:59 CLS Outpatient Symone Sebas [id number] 12/13/2014 22:05:04 12/13/2014 23:59:59 CLS Outpatient Marilu Huffman [id number] 08/10/2014 10:45:59 08/10/2014 23:59:59 CLS Outpatient Marilu Huffman [id number] 06/18/2014 15:21:11 06/18/2014 23:59:59 CLS Outpatient Nguyen Pettit [id number] 05/19/2014 16:44:46 05/19/2014 23:59:59 CLS Outpatient Marilu Huffman [id number] 04/21/2014 15:10:47 04/21/2014 23:59:59 CLS Outpatient Nguyen Pettit [id number] 02/24/2014 17:19:18 02/24/2014 23:59:59 CLS Outpatient Nguyen Pettit [id number] 11/26/2013 11:11:17 11/26/2013 23:59:59 CLS Outpatient Nathanael Marilu
[2017-06-23] MEDS ORDERED: ZOLPIDEM 5 MG (AMBIEN) TAB PO PRN (19:45)
[2017-06-23] MEDS ORDERED: MINERAL OIL CONCENTRATE 99.9% 15 ML UDC TOP PRN (19:45)
[2017-06-23] MEDS ORDERED: DINOPROSTONE 10 MG (CERVIDIL) INSERT PV ONE (19:45)
[2017-06-23] MEDS: D5 LR IV SOLUTION 1,000 ML IV SCH (19:50)
[2017-06-23 20:03] LABS: BILIRUBIN,URINE NEGATIVE (NEGATIVE); CLARITY,URINE CLEAR; COLOR,URINE YELLOW; GLUCOSE, URINE (UA) NEGATIVE (NEGATIVE); KETONES,URINE NEGATIVE (NEGATIVE); LEUKOCYTE ESTERASE ,URINE NEGATIVE (NEGATIVE); NITRITE,URINE NEGATIVE (NEGATIVE); PH,URINE 7 (5-9); PROTEIN,URINE NEGATIVE (NEGATIVE); UROBILINOGEN,URINE NORMAL (NORMAL)
[2017-06-23 20:18] LABS: BASOPHILS % (AUTO) 0 % (0-10); EOSINOPHILS # (AUTO) 0.1 10^3/uL (0.0-0.3); EOSINOPHILS % (AUTO) 1 % (0-10); HEMATOCRIT 32 % (35-52); HEMOGLOBIN 10.6 G/DL (11.5-16.0); LYMPHOCYTES # (AUTO) 2.7 X 10^3 (1.0-4.0); LYMPHOCYTES % (AUTO) 22 % (12-44); MEAN CORPUSCULAR HEMOGLOBIN 29 PG (25-34); MEAN CORPUSCULAR HGB CONC 34 G/DL (32-36); MEAN CORPUSCULAR VOLUME 85 FL (80-99); MEAN PLATELET VOLUME 12.5 FL (7.4-10.4); MONOCYTES # (AUTO) 1.3 X 10^3 (0.0-1.0); MONOCYTES % (AUTO) 11 % (0-12); NEUTROPHILS # (AUTO) 8.3 X 10^3 (1.8-7.8); NEUTROPHILS % (AUTO) 67 % (42-75); PLATELET COUNT 243 10^3/uL (130-400); RED BLOOD COUNT 3.69 10^6/uL (4.35-5.85); RED CELL DISTRIBUTION WIDTH 13.2 % (10.0-14.5); WHITE BLOOD COUNT 12.4 10^3/uL (4.3-11.0)
[2017-06-23 20:30] LABS: ALANINE AMINOTRANSFERASE 9 U/L (0-55); ALBUMIN 3.4 GM/DL (3.2-4.5); ALKALINE PHOSPHATASE 189 U/L (40-136); BILIRUBIN,TOTAL 0.2 MG/DL (0.1-1.0); BUN/CREATININE RATIO 14; CALCIUM 9.2 MG/DL (8.5-10.1); CARBON DIOXIDE 19 MMOL/L (21-32); CHLORIDE 107 MMOL/L (98-107); CREATININE SERUM 0.72 MG/DL (0.60-1.30); GFR ESTIMATED > 60; GLUCOSE 72 MG/DL (70-105); POTASSIUM 4.1 MMOL/L (3.6-5.0); SODIUM 135 MMOL/L (135-145); TOTAL PROTEIN 6.9 GM/DL (6.4-8.2); URIC ACID 3.9 MG/DL (2.6-7.2)
[2017-06-23 23:44] VITALS: BP 123/76
[2017-06-23] MEDS: CATHETER FLUSH 10 ML SYR IV SCH (23:47)
[2017-06-23] MEDS: AMPICILLIN INJECTION 1,000 MG in NS (IVPB) 50 ML IV SCH (23:48)
[2017-06-24] VITALS (42 sets, daily range): BP systolic 113–159; BP diastolic 70–105
[2017-06-24] MEDS: fentaNYL INJECTION 100 MCG/2 ML AMP IVP PRN ×2 (02:39→04:46)
[2017-06-24] MEDS: AMPICILLIN INJECTION 1,000 MG in NS (IVPB) 50 ML IV SCH ×3 (03:38→11:25)
[2017-06-24] MEDS: D5 LR IV SOLUTION 1,000 ML IV SCH ×2 (03:45→12:56)
[2017-06-24] MEDS: CATHETER FLUSH 10 ML SYR IV SCH (06:45)
--- NOTE | 2017-06-24 07:51 | History & Physical-OB ---
OB - Chief Complaint & HPI Date/Time Date of Admission: Date of Admission: Jun 23, 2017 at 19:10 Time Seen by Provider: 07:46 Chief Complaint/History OB-Reason for Admission/Chief: Induction of Labor Hx : 1 Hx Para: 0 Expected Date of Delivery: Jul 06, 2017 Gestational Age in Weeks: 38 Gestational Age in Days: 2 Indication for induction: medical complication (GHTN) History of Labs A neg, antibody neg, RI, GC/chlamydia neg. HIV/Hepb/RPR NR. Allergies and Home Medications Allergies Coded Allergies: No Known Drug Allergies (Unverified , 06/13/17) Home Medications No Active Prescriptions or Reported Meds OB - History Hx of Present Care: Yes Obstetrical Complications: Gestational Hypertension Medical Complications: None Information Induced Hypertension: Yes Maternal Gestational Diabetes: No Hemorrhage: No Obstetrical History Hx : 1 Hx Para: 0 Hx # Term Pregnancies: 0 Hx # Pregnancies: 0 Number of Living Children: 0 Hx Termination: No Hx Multiple Gestation: No Hx Ectopic : No Hx Stillbirth: No Hx Complication: No Hx Induced Hypertens: Yes Hx Maternal Gestational Diabet: No Hx Hemorrhage: No Delivery History Hx Dystocia: No Hx Forceps Assisted Delivery: No Hx Vacuum Extraction Assisted: No Hx Placenta Abnormality: No Hx Distress: No Hx Large For Gestational Age I: No Hx Small for Gestational Age I: No Hx Section: No Hx Vaginal Delivery Post C-Sec: No Hx Blood Disorders: No Adverse Rxn to Tranfusion: No Patient Past Medical History PMHx: Asthma Social History/Family History HIV/AIDS: No Recent Infectious Disease Expo: No Sexually Transmitted Disease: No Alcohol Use: Denies Use Recreational Drug Use: No Smoking Cessation: Former smoker Immunizations Date of Influenza Vaccine: Mar 13, 2017 Rubella: immune RPR/VDRL: Negative GBS Status: Positive HBsAG: Negative OB - Admission Exam Physical Exam Vitals: Vital Signs 06/24/17 04:10 Temp 97.5 Pulse 87 Resp 18 B/P (MAP) 138/92 (107) O2 Delivery Room Air HEENT: NCAT Abdomen: Non tender Extremities: Edema (trace) Cervical Dilatation: 4cm Effacement: 50% Station: -3 Membranes: Ruptured (AROM at time of exam) Amniotic Fluid: Clear Accelerations: Accelerations Present Decelerations: No Decelerations Short Term Variability: Present Usp Variability: Average (6-25) Contractions on Admission: None Ram Scoring Tool (Modified) Dilation (cm): 1-2cm (1) Effacement (%): 51-79% (2) Descent/Station: -3 (0) Cervix Consistency: Medium(1) Cervix Position: Middle/Mid-Position (1) Subtract 1 point for: Nulliparity (-1) Ram Score: 5 Labs Laboratory Tests Test 06/23/17 19:30 06/23/17 19:50 Range/Units Urine Color YELLOW Urine Clarity CLEAR Urine pH 7 5-9 Urine Specific [place] 1.020 1.016-1.022 Urine Protein NEGATIVE NEGATIVE Urine Glucose (UA) NEGATIVE NEGATIVE Urine Ketones NEGATIVE NEGATIVE Urine Nitrite NEGATIVE NEGATIVE Urine Bilirubin NEGATIVE NEGATIVE Urine Urobilinogen NORMAL NORMAL MG/DL Urine Leukocyte Esterase NEGATIVE NEGATIVE Urine RBC (Auto) NEGATIVE NEGATIVE Urine RBC NONE /HPF Urine WBC NONE /HPF Urine Squamous Epithelial Cells 5-10 /HPF Urine Crystals NONE /LPF Urine Bacteria NONE /HPF Urine Casts NONE /LPF Urine Mucus NEGATIVE /LPF Urine Culture Indicated NO Urine Creatinine 102 30-125 MG/DL Urine Protein/Creatinine Ratio 0.10 White Blood Count 12.4 H 4.3-11.0 10^3/uL Red Blood Count 3.69 L 4.35-5.85 10^6/uL Hemoglobin 10.6 L 11.5-16.0 G/DL Hematocrit 32 L 35-52 % Mean Corpuscular Volume 85 80-99 FL Mean Corpuscular Hemoglobin 29 25-34 PG Mean Corpuscular Hemoglobin Concent 34 32-36 G/DL Red Cell Distribution Width 13.2 10.0-14.5 % Platelet Count 243 130-400 10^3/uL Mean Platelet Volume 12.5 H 7.4-10.4 FL Neutrophils (%) (Auto) 67 42-75 % Lymphocytes (%) (Auto) 22 12-44 % Monocytes (%) (Auto) 11 0-12 % Eosinophils (%) (Auto) 1 0-10 % Basophils (%) (Auto) 0 0-10 % Neutrophils # (Auto) 8.3 H 1.8-7.8 X 10^3 Lymphocytes # (Auto) 2.7 1.0-4.0 X 10^3 Monocytes # (Auto) 1.3 H 0.0-1.0 X 10^3 Eosinophils # (Auto) 0.1 0.0-0.3 10^3/uL Basophils # (Auto) 0.0 0.0-0.1 10^3/uL Sodium Level 135 135-145 MMOL/L Potassium Level 4.1 3.6-5.0 MMOL/L Chloride Level 107 98-107 MMOL/L Carbon Dioxide Level 19 L 21-32 MMOL/L Anion Gap 9 5-14 MMOL/L Blood Urea Nitrogen 10 7-18 MG/DL Creatinine 0.72 0.60-1.30 MG/DL Estimat Glomerular Filtration Rate > 60 BUN/Creatinine Ratio 14 Glucose Level 72 70-105 MG/DL Uric Acid 3.9 2.6-7.2 MG/DL Calcium Level 9.2 8.5-10.1 MG/DL Total Bilirubin 0.2 0.1-1.0 MG/DL Aspartate Amino Transf (AST/SGOT) 15 5-34 U/L Alanine Aminotransferase (ALT/SGPT) 9 0-55 U/L Alkaline Phosphatase 189 H 40-136 U/L Lactate Dehydrogenase 186 125-220 U/L Total Protein 6.9 6.4-8.2 GM/DL Albumin 3.4 3.2-4.5 GM/DL OB - Assessment/Plan/Diagnosis Assessment Assessment: group B positive strep, induction of labor, other (Gestational hypertension) Plan Plan: Induction Induction Method: other (Cervical ripening with Cervidil overnight last night, AROM this am followed by pitocin. Preeclampsia labs okay. Monitor BP closely. Ampicillin for GBS bacteriuria.) Copy Copies To 1: CLARE WOTOEN MD, BETHANY N MD Jun 24, 2017 07:51
[2017-06-24] MEDS ORDERED: OXYTOCIN/NORMAL SALINE 500 ML IV SCH ×2 (08:12→15:00)
[2017-06-24] MEDS ORDERED: SUFENTA 0.6MCG/ML BUPIVA 0.125 100 ML ONE ×2 (09:47→10:45)
[2017-06-24] MEDS ORDERED: fentaNYL INJECTION 100 MCG/2 ML AMP ONE (10:17)
[2017-06-24] MEDS ORDERED: LIDOCAINE PF 2% 5 ML (XYLOCAINE) VIAL ONE (10:44)
[2017-06-24] MEDS ORDERED: BUPIVACAINE 0.25% 30 ML (SENSORCAINE) VIAL ONE (10:44)
[2017-06-24] MEDS ORDERED: LACTATED RINGERS 1,000 ML IV ONE ×2 (11:24)
[2017-06-24] MEDS ORDERED: ONDANSETRON 4 MG/2 ML (SDV) Z0FRAN IV PRN (11:30)
[2017-06-24] MEDS ORDERED: NALOXONE 0.4 MG/ML 1 ML (NARCAN) VIAL IV PRN (11:30)
[2017-06-24] MEDS ORDERED: EPIDURAL (SUFENTA 0.6MCG/ML BUPIVA 0.125%) 100 ML BAG EPI PRN (11:30)
--- NOTE | 2017-06-24 14:32 | OB Labor & Delivery Record ---
Vag Delivery Note Vag Delivery Note Date of Delivery: 06/24/17 Preoperative Diagnosis: Glendy De La O is a 22 /Para 1 / 0, Gestational Age (wks) 38with 2 days Postoperative Diagnosis: Same Surgeon: CLARE WOOTEN Anesthesia: Epidural Delivery Type: Spontaneous vaginal delivery Findings: Viable female , apgars 8/9, weight 6#12 Lacerations: first degree perineal, bilateral periurethral Intact placenta with 3 vessel cord. No nuchal cord, body cord or shoulder dystocia Estimated Blood Loss: 200 ml Complications: None Condition: Stable Description of Procedure: The patient is a 22 yo G1 who presented at 38w1d for IOL due to gestational hypertension. She was admitted and informed consent was obtained. Her labor course was unremarkable for. She progressed to complete dilatation and began to push. She was then set up for delivery. The infant's head was delivered atraumatically in OA position. The shoulders and remainder of the infant's body were then delivered without difficulty. Upon delivery, the was vigorous and crying and was placed on maternal abdomen. After a delay the cord was doubly clamped and cut and the infant remained on maternal abdomen. An intact placenta with 3-vessel cord delivered via Charley and there was found to be minimal bleeding.~ Vigorous fundal massage was performed and the fundus was found to be firm. IV oxytocin was given. Examination of the vagina and perineum revealed a first degree perineal laceration repaired with one simple interrupted 3-0 rapide suture and right periurethral abrasion repaired in simple running fashion with 3-0 rapide suture and left periurethral abrasion that was hemostatic and did not require repair. Lesions possibly consistent with genital warts had been noted on inner gluteals and outer labia majora and patient desired biopsy, shave biopsy of left lower inner gluteal lesion was done and hemostasis achieved with pressure and silver nitrite. The lesion was sent for pathology. Following the repair, sponge, instrument and needle counts were correct. Mom and baby were both in stable condition in the labor suite. Vitals - Labs Vital Signs - I&O Vital Signs Date Time Temp Pulse Resp B/P (MAP) Pulse Ox O2 Delivery O2 Flow Rate FiO2 06/24/17 11:20 82 20 123/74 (90) 97 Room Air 06/24/17 11:15 85 20 120/74 (89) 96 Room Air 06/24/17 11:10 95 20 119/75 (90) 98 Room Air 06/24/17 11:05 88 20 133/87 (102) 97 Room Air 06/24/17 11:00 86 20 119/74 (89) 97 Room Air 06/24/17 10:55 85 20 126/84 (98) 97 Room Air 06/24/17 10:49 82 20 129/88 (102) 99 Room Air 06/24/17 10:46 79 20 124/75 (91) 98 Room Air 06/24/17 10:43 83 20 131/85 (100) 100 Room Air 06/24/17 10:40 97.7 81 20 124/83 (97) 100 Room Air 06/24/17 10:35 76 20 131/89 (103) 100 Room Air 06/24/17 10:30 80 20 135/78 (97) 100 Room Air 06/24/17 10:23 94 20 135/80 (98) 100 Room Air 06/24/17 10:20 83 20 142/91 (108) Room Air 06/24/17 10:18 84 20 159/105 (123) Room Air 06/24/17 10:00 82 20 147/88 (107) Room Air 06/24/17 09:45 76 20 143/101 (115) Room Air 06/24/17 09:30 90 20 146/102 (117) Room Air 06/24/17 09:15 83 20 142/92 (109) Room Air 06/24/17 09:00 86 20 140/96 (111) Room Air 06/24/17 08:45 89 20 137/89 (105) Room Air 06/24/17 08:30 82 20 133/88 (103) Room Air 06/24/17 08:15 83 20 127/84 (98) Room Air 06/24/17 08:00 80 20 124/81 (95) Room Air 06/24/17 07:30 98.0 86 20 133/89 (104) Room Air 06/24/17 04:10 97.5 87 18 138/92 (107) Room Air 06/23/17 23:44 97.6 74 18 123/76 (92) Room Air 06/23/17 20:23 98.5 06/23/17 19:20 89 18 131/81 (98) Room Air I & O 06/24/17 07:00 Intake Total 2125 ml Balance 2125 ml Labs Laboratory Tests 06/23/17 19:30: Urine Color YELLOW, Urine Clarity CLEAR, Urine pH 7, Urine Specific [place] 1.020, Urine Protein NEGATIVE, Urine Glucose (UA) NEGATIVE, Urine Ketones NEGATIVE, Urine Nitrite NEGATIVE, Urine Bilirubin NEGATIVE, Urine Urobilinogen NORMAL, Urine Leukocyte Esterase NEGATIVE, Urine RBC (Auto) NEGATIVE, Urine RBC NONE, Urine WBC NONE, Urine Squamous Epithelial Cells 5-10, Urine Crystals NONE , Urine Bacteria NONE, Urine Casts NONE, Urine Mucus NEGATIVE, Urine Culture Indicated NO, Urine Creatinine 102, Urine Protein/Creatinine Ratio 0.10 06/23/17 19:50: White Blood Count 12.4H, Red Blood Count 3.69L, Hemoglobin 10.6L, Hematocrit 32L , Mean Corpuscular Volume 85, Mean Corpuscular Hemoglobin 29, Mean Corpuscular Hemoglobin Concent 34, Red Cell Distribution Width 13.2, Platelet Count 243, Mean Platelet Volume 12.5H, Neutrophils (%) (Auto) 67, Lymphocytes (%) (Auto) 22 , Monocytes (%) (Auto) 11, Eosinophils (%) (Auto) 1, Basophils (%) (Auto) 0, Neutrophils # (Auto) 8.3H, Lymphocytes # (Auto) 2.7, Monocytes # (Auto) 1.3H, Eosinophils # (Auto) 0.1, Basophils # (Auto) 0.0, Sodium Level 135, Potassium Level 4.1, Chloride Level 107, Carbon Dioxide Level 19L, Anion Gap 9, Blood Urea Nitrogen 10, Creatinine 0.72, Estimat Glomerular Filtration Rate > 60, BUN/ Creatinine Ratio 14, Glucose Level 72, Uric Acid 3.9, Calcium Level 9.2, Total Bilirubin 0.2, Aspartate Amino Transf (AST/SGOT) 15, Alanine Aminotransferase ( ALT/SGPT) 9, Alkaline Phosphatase 189H, Lactate Dehydrogenase 186, Total Protein 6.9, Albumin 3.4 CLARE WOOTEN MD Jun 24, 2017 2:32 pm
[2017-06-24] MEDS ORDERED: BENZOCAINE/MENTHOL (DERMOPLAST) 56 ML CAN TP PRN (15:00)
[2017-06-24] MEDS ORDERED: TETANUS,DIPTH,PERTUSS P/F (BOOSTRIX) 0.5 ML VIAL IM ONE (15:00)
[2017-06-24] MEDS ORDERED: CATHETER FLUSH 10 ML SYR IV SCH (22:00)
[2017-06-25 00:55] VITALS: BP 126/91
[2017-06-25 05:15] VITALS: BP 125/81
[2017-06-25 06:05] LABS: BASOPHILS % (AUTO) 0 % (0-10); EOSINOPHILS # (AUTO) 0.1 10^3/uL (0.0-0.3); EOSINOPHILS % (AUTO) 0 % (0-10); HEMATOCRIT 31 % (35-52); HEMOGLOBIN 10.6 G/DL (11.5-16.0); LYMPHOCYTES # (AUTO) 2.6 X 10^3 (1.0-4.0); LYMPHOCYTES % (AUTO) 18 % (12-44); MEAN CORPUSCULAR HEMOGLOBIN 29 PG (25-34); MEAN CORPUSCULAR HGB CONC 34 G/DL (32-36); MEAN CORPUSCULAR VOLUME 85 FL (80-99); MONOCYTES # (AUTO) 1.3 X 10^3 (0.0-1.0); MONOCYTES % (AUTO) 9 % (0-12); NEUTROPHILS % (AUTO) 72 % (42-75); PLATELET COUNT 216 10^3/uL (130-400); RED BLOOD COUNT 3.69 10^6/uL (4.35-5.85); RED CELL DISTRIBUTION WIDTH 13.2 % (10.0-14.5)
[2017-06-25] MEDS ORDERED: PRENATAL VITAMIN 1 EA TAB PO SCH (07:00)
[2017-06-25 10:09] VITALS: BP 121/84
[2017-06-25 12:45] VITALS: BP 128/88
--- NOTE | 2017-06-25 13:17 | Anesthesia-Regional Post-Op ---
Regional Patient Condition Mental Status: Alert, Oriented x3 Circulation: Same as Pre-Op Headache: Absent Sensation: Full Recovery Motor Block: Absent Post Op Complications Complications None Follow Up Care/Instructions Patient Instructions None needed. Anesthesia/Patient Condition Patient is doing well, no complaints, stable vital signs, no apparent adverse anesthesia problems. No complications reported per nursing. D/C home per [facility] Criteria: No CARIDAD OLEARY CRNA Jun 25, 2017 13:17
--- NOTE | 2017-06-25 16:15 | Discharge Summary ---
Diagnosis/Chief Complaint Date of Admission Jun 23, 2017 at 7:10 pm Date of Discharge Discharge Summary-Simple/Stand Discharge Physical Examination Allergies: Coded Allergies: No Known Drug Allergies (Unverified , 06/13/17) Vitals & I&Os Vital Sign - Last 12Hours Date Time Temp Pulse Resp B/P (MAP) Pulse Ox O2 Delivery O2 Flow Rate FiO2 06/25/17 12:45 97.8 91 20 128/88 (101) 98 Room Air Intake and Output 06/25/17 00:00 Intake Total 2500 ml Balance 2500 ml Hospital Course See final discharge diagnosis. Discharge Instructions to patient/family Please see electronic discharge instructions given to patient. Discharge Medications Reviewed and agree with Discharge Medication list on patient's Discharge Instruction sheet Clinical Quality Measures DVT/VTE Risk/Contraindication: Risk Factor Score Per Nursin RFS Level Per Nursing on Admit: 1=Low/No VTE PPX WILLIAM FELIX MD Jun 25, 2017 4:15 pm
[2017-06-25] MEDS ORDERED: PNV1TABL67 PO (16:16)
--- NOTE | 2017-06-25 16:17 | Discharge Instructions ---
Discharge Inst-Women's Serv Depart Medications New, Converted or Re-Newed RX: Transmitted to Pharmacy New Medications: Pnv with Ca,No.72/Iron/FA (Pnv Plus Multivit Tab) 1 Each Tablet 1 EA PO DAILY@0700, #30 TAB Follow Up/Instructions Goal/Follow Up: Follow up with Dr Younger in 6 weeks Activity Activity: Activity as Tolerated Driving Instructions: You May Drive NO SMOKING: NO SMOKING Nothing Inside Vagina: No Douching, No Firth, No Tampons Diet Discharge Diet: No Restrictions Symptoms to Report to : Swelling Increased, Bleeding Excessive, Pain Increased, Pain/Pressure in Shoulder For Any Problems or Questions: Contact Your Physician Copies To 1: CLARE YOUNGER MD, HOLLY R MD Jun 25, 2017 4:17 pm
== END 2017-06-25 18:45 | disposition home or self-care (01) | DRG 774 ==
LOC: LDRP 19:10
PROVIDERS: ADMIT Family Medicine; ATTEND Family Medicine
PROC: 10E0XZZ Delivery of Products of Conception, External Approach (ICD-10-PCS; principal; 2017-06-24)
PROC: 0HQ9XZZ Repair Perineum Skin, External Approach (ICD-10-PCS; 2017-06-24)
PROC: 0HB8XZX Excision of Buttock Skin, External Approach, Diagnostic (ICD-10-PCS; 2017-06-24)
DX: O13.3 Gestational [pregnancy-induced] hypertension without significant proteinuria, third trimester (principal); O70.0 First degree perineal laceration during delivery; O98.313 Other infections with a predominantly sexual mode of transmission complicating pregnancy, third trimester; A63.0 Anogenital (venereal) warts; O99.820 Streptococcus B carrier state complicating pregnancy; O99.513 Diseases of the respiratory system complicating pregnancy, third trimester; J45.909 Unspecified asthma, uncomplicated; O26.893 Other specified pregnancy related conditions, third trimester; Z67.11 Type A blood, Rh negative; Z3A.38 38 weeks gestation of pregnancy; Z37.0 Single live birth; Z87.891 Personal history of nicotine dependence
CPT/HCPCS: 36415; 80053; 81000; 82570; 83033; 83615; 84156; 84550; 85025; 86850; 86900; 86901

== ENCOUNTER 2017-09-18 05:34 | Outpatient (CLI) | payer MEDICAID ==
[~2017-09-18] VITALS: Ht 165.1 cm; Wt 83.9 kg
[~2017-09-18 05:34] MED LIST: PNV1TABL67 PO
[2017-09-18] MEDS ORDERED: bcp PO (12:01)
[2017-09-18] MEDS ORDERED: SERT25TA5 PO (12:01)
== END 2017-09-18 12:02 ==
LOC: PREOP 05:34
PROVIDERS: ATTEND Surgery
DX: Z01.818 Encounter for other preprocedural examination (principal); L05.91 Pilonidal cyst without abscess

== ENCOUNTER 2017-10-03 08:49 | Day surgery (SDC) | payer MEDICAID ==
[~2017-10-03] VITALS: Ht 165.1 cm; Wt 83.9 kg
[~2017-10-03 08:49] MED LIST changes: +SERT25TA5 PO; +bcp PO
--- OUTSIDE RECORDS SUMMARY | 2017-10-03 08:54 | XMS REPORT ---
Author Author TASH JORDAN [facility] Address [address] [place] [address] Care Team Providers Care Fire Protection Fabricator Name Role Phone TASH JORDAN Unavailable PROBLEMS Type Condition ICD9-CM Code [id number] Code Onset Dates Condition Status SNOMED Code Problem Elevated blood pressure affecting in third trimester, antepartum O16.3 Active 75266675 Problem care, first in third trimester Z34.03 Active 288060001 ALLERGIES No Information ENCOUNTERS Encounter Location Date Diagnosis [facility] [id number] [address] Aug, [facility] [id number] [place] [address] Aug, [facility] [id number] [place] [address] Jul, Dental examination Z01.20 [facility] [id number] [place] [address] Jul, [facility] [address] [address] Jun, [facility] [place] [id number] [place] [address] Jun, [facility] [id number] [address] Jun, care, first in third trimester Z34.03 ; -induced hypertension in third trimester O13.3 and 37 weeks gestation of Z3A.37 [facility] [address] [address] Jun, 2017 [place] [id number] [place] [address] Jun, [place] [address] [facility] [id number] [address] Jun, [place] [address] [facility] [id number] [address] Jun, care, first in third trimester Z34.03 ; Elevated blood pressure affecting in third trimester, antepartum O16.3 and 36 weeks gestation of Z3A.36 [place] [address] [facility] [id number] [address] Jun, [place] [id number] [address] May, care, first in third trimester Z34.03 ; 35 weeks gestation of Z3A.35 and Encounter for immunization Z23 [facility] [id number] [address] May, UTI (urinary tract infection) in in third trimester O23.43 ; 33 weeks gestation of Z3A.33 and care, first in third trimester Z34.03 [place] [address] [facility] [id number] [address] May, [facility] [address] [id number] [place] [address] May [facility] [address] [id number] [place] [address] Mar MARISSA [facility] [address] [id number] [place] [address] Feb MARISSA [place] [address] [id number] [place] [address] Dec MARISSA [place] [address] [id number] [place] [address] Nov MARISSA MORTON [address] [id number] [place] [address] 21 [place] , 2017 IMMUNIZATIONS No Known Immunizations SOCIAL HISTORY Never Assessed REASON FOR VISIT PLAN OF CARE VITAL SIGNS MEDICATIONS Unknown Medications RESULTS No Results PROCEDURES No Known procedures INSTRUCTIONS MEDICATIONS ADMINISTERED No Known Medications MEDICAL (GENERAL) HISTORY Type Description Date Medical History asthma
--- OUTSIDE RECORDS SUMMARY | 2017-10-03 08:59 | XMS REPORT | CCD ---
Author Author ALONZO RANDALL Unknown Address [address] [place] [address] Care Team Providers Care Mill Operator Helper Name Role Phone JEFFREY RODRÍGUEZ DO Attphys Allergies Unknown or Not Available. Active Medications Unknown or Not Available. Problems Unknown or Not Available. Procedures Procedure Code Procedure Type Date ^CBC W/AUTO DIFF 6681068 SNOMED CT 11/14/2016 COMPREHENSIVE METABOLIC PANEL [id number] SNOMED CT 2016 CBC W/ AUTO DIFF (RFLX MAN DIFF IF IND) 7373009 SNOMED CT 11/14/2016 Results COMPREHENSIVE METABOLIC PANEL - Collect Date/Time: 11/14/2016 19:51 Test Name Code Test Result Test Units Test Ref Range GLUCOSE 2345-7 67 MG/DL L=70 H=100 SODIUM 2951-2 138 MEQ/L L=135 H=148 POTASSIUM 2823-3 3.7 MEQ/L L=3.5 H=5.3 CHLORIDE 2075-0 104 MEQ/L L=96 H=110 CO2 2028-9 24 MEQ/L L=22 H=29 BUN 3094-0 9 MG/DL L=8 H=22 CREATININE 2160-0 0.7 MG/DL L=0.6 H=1.6 SGOT/AST 1920-8 16 IU/L L=10 H=40 SGPT/ALT 1742-6 14 IU/L L=8 H=54 ALK PHOS 6768-6 75 IU/L L=35 H=115 TOTAL PROTEIN 2885-2 7.5 G/DL L=5.5 H=8.5 ALBUMIN 1751-7 4.1 G/DL L=3.1 H=5.4 TOTAL BILI 1975-2 0.4 MG/DL L=0.0 H=1.5 CALCIUM 92925-1 9.5 MG/DL L=8.2 H=10.6 AGE 21 yrs GFR NonAA 108 GFR AA 131 eGFR >60 N/A eGFR AA* >60 N/A CBC W/ AUTO DIFF (RFLX MAN DIFF IF IND) - Collect Date/Time: 11/14/2016 19:51 Test Name Code Test Result Test Units Test Ref Range WBC 75702-5 8.7 TH/CMM L=4.5 H=10.8 RBC 789-8 4.13 ML/CMM L=4.20 H=5.40 HGB 718-7 11.7 G/DL L=12.0 H=16.0 HCT 4544-3 36.3 % L=37.0 H=47.0 MCV 88 FL L=81 H=99 MCH 28.3 PG L=27.0 H=33.0 MCHC 32.2 G/DL L=31.0 H=36.0 RDW SD 40 FL L=36 H=50 RDW CV 12.5 % L=0.0 H=14.8 MPV 10.6 FL L=9.3 H=12.5 PLT 777-3 266 TH/CMM L=130 H=440 NRBC# 0.00 TH/CMM L=0.00 H=0.00 NRBC% 0.0 /100WBC L=0.0 H=2.0 %NEUT 65.2 % %LYMP 25.5 % %MONO 8.0 % %EOS 0.7 % %BASO 0.3 % #NEUT 5.68 TH/CMM L=2.10 H=8.20 #LYMP 2.22 TH/CMM L=0.90 H=5.20 #MONO 0.70 TH/CMM L=0.16 H=1.00 #EOS 0.06 TH/CMM L=0.00 H=0.80 #BASO 0.03 TH/CMM L=0.00 H=0.20 MANUAL DIFF NOT IND N/A Function Status Unknown or Not Available. History of Immunizations Immunization Code Date DTP 1997 OPV 1997 OPV 1997 OPV 06/13/1998 OPV 01/23/2002 MMR 06/13/1998 MMR 01/23/2002 Hep B, adolescent or pediatric 08 [...] Tdap 115 12/02/2006 Tdap 115 02/09/2009 Novel [id number] 127 03/10/2009 influenza, injectable, quadrivalent 158 02/24/2014 Plan of Treatment Unknown or Not Available. Social History Smoking Status Code Start Date End Date Never smoker [id number] Vital Signs Unknown or Not Available. Function Status Unknown or Not Available. Goals Unknown or Not Available. ASSESSMENTS Unknown or Not Available. Health Concerns Section Unknown or Not Available.
[2017-10-03 09:00] VITALS: BP 123/86
--- OUTSIDE RECORDS SUMMARY | 2017-10-03 09:01 | XMS REPORT | CCD ---
Author ALONZO Rogers Unknown Address [address] [place] [address] Care Team Providers Care Aircraft Manager Name Role Phone CHRISTOPHER BEAVERS SUSU ER Attphys Allergies Unknown or Not Available. Active Medications Unknown or Not Available. Problems Unknown or Not Available. Procedures Unknown or Not Available. Results Unknown or Not Available. Encounters Encounter Diagnosis Diagnosis Code Start Date Other specified related conditions, first trimester [id number] 10/28/2016 Function Status Unknown or Not Available. History of Immunizations Immunization Code Date DTP 1997 OPV 1997 OPV 02 1997 OPV 02 06/13/1998 OPV 02 01/23/2002 [...] Tdap 115 12/02/2006 Tdap 115 02/09/2009 Novel [id number] 127 03/10/2009 influenza, injectable, quadrivalent 158 02/24/2014 Social History Smoking Status Code Start Date End Date Never smoker [id number] Vital Signs Unknown or Not Available. Function Status Unknown or Not Available. Goals Unknown or Not Available. ASSESSMENTS Unknown or Not Available. Health Concerns Section Unknown or Not Available.
[2017-10-03] MEDS ORDERED: LACTATED RINGERS 1,000 ML IV PRN (09:02)
--- OUTSIDE RECORDS SUMMARY | 2017-10-03 09:12 | XMS REPORT | Continuity of Care Document ---
Author Author [facility] Organization [facility] Address Unknown Phone Unavailable Allergies Active Description Code Type Severity Reaction Onset Reported/Identified Relationship to Patient Clinical Status Yes No Known Allergies [id number] N /A N/A Yes No Known Drug Allergies [id number] N/A N/A Yes No Known Drug Allergies [id number] Drug Allergy Unknown N/A 06/13/2017 Medications There is no data. Problems Date Dx Coded Attending Type Code Diagnosis Diagnosed By 06/13/2017 ALEJANDRA JIMENEZ DO, Ot O99.89 OT DISEASES AND CONDITIONS COMPL PREG/C 06/13/2017 ALEJANDRA JIMENEZ DO, Ot R42 DIZZINESS AND GIDDINESS 06/13/2017 ALEJANDRA JIMENEZ DO, Ot Z3A.36 36 WEEKS GESTATION OF 06/19/2017 CLARE WOOTEN MD, Ot O13.3 GESTATIONAL HTN W/O SIGNIFICANT PROTEINU 06/19/2017 CLARE WOOTEN MD, Ot Z3A.00 WEEKS OF GESTATION OF NOT SPEC 06/20/2017 CLARE WOOTEN MD Ot R03.0 ELEVATED BLOOD-PRESSURE READING, W/O RUBINA 06/20/2017 CLARE WOOTEN MD Ot Z3A.37 37 WEEKS GESTATION OF 06/20/2017 CLARE WOOTEN MD, Ot Z87.891 PERSONAL HISTORY OF NICOTINE DEPENDENCE 06/20/2017 CLARE WOOTEN MD Ot R03.0 ELEVATED BLOOD-PRESSURE READING, W/O RUBINA 06/20/2017 CLARE WOOTEN MD, Ot Z3A.37 37 WEEKS GESTATION OF 06/20/2017 CLARE WOOTEN MD, Ot Z87.891 PERSONAL HISTORY OF NICOTINE DEPENDENCE 06/21/2017 CLARE WOOTEN MD Ot R03.0 ELEVATED BLOOD-PRESSURE READING, W/O RUBINA 06/21/2017 CLARE WOOTEN MD, Ot Z3A.37 37 WEEKS GESTATION OF 06/21/2017 CLARE WOOTEN MD, Ot Z87.891 PERSONAL HISTORY OF NICOTINE DEPENDENCE 06/24/2017 CLARE WOOTEN MD Ot O13.3 GESTATIONAL HTN W/O SIGNIFICANT PROTEINU 06/24/2017 CLARE WOOTEN MD, Ot Z3A.00 WEEKS OF GESTATION OF NOT SPEC 06/25/2017 CLARE WOOTEN MD, Ot A63.0 ANOGENITAL (VENEREAL) WARTS 06/25/2017 CLARE WOOTEN MD, Ot J45.909 UNSPECIFIED ASTHMA, UNCOMPLICATED 06/25/2017 CLARE WOOTEN MD, Ot O13.3 GESTATIONAL HTN W/O SIGNIFICANT PROTEINU 06/25/2017 CLARE WOOTEN MD, Ot O26.893 OTH RELATED CONDITIONS, THIRD 06/25/2017 CLARE WOOTEN MD, Ot O70.0 FIRST DEGREE PERINEAL LACERATION DURING 06/25/2017 CLARE WOOTEN MD, Ot O98.313 OTH INFECT W SEXL MODE OF TRANSMISS COMP 06/25/2017 CLARE WOOTEN MD Ot O99.513 DISEASES OF THE RESP SYS COMP , 06/25/2017 CLARE WOOTEN MD, Ot O99.820 STREPTOCOCCUS B CARRIER STATE COMPLICATI 06/25/2017 CLARE WOOTEN MD, Ot Z37.0 SINGLE LIVE 06/25/2017 CLARE WOOTEN MD, Ot Z3A.38 38 WEEKS GESTATION OF 06/25/2017 CLARE WOOTEN MD, Ot Z67.11 TYPE A BLOOD, RH NEGATIVE 06/25/2017 CLARE WOOTEN MD, Ot Z87.891 PERSONAL HISTORY OF NICOTINE DEPENDENCE 06/26/2017 CLARE WOOTEN MD, Ot O13.3 GESTATIONAL HTN W/O SIGNIFICANT PROTEINU 06/26/2017 CLARE WOOTEN MD, Ot Z3A.00 WEEKS OF GESTATION OF NOT SPEC 06/28/2017 ALEJANDRA JIMENEZ DO Ot O99.89 OTH DISEASES AND CONDITIONS COMPL PREG/C 06/28/2017 ALEJANDRA JIMENEZ DO Ot R42 DIZZINESS AND GIDDINESS 06/28/2017 ALEJANDRA JIMENEZ DO Ot Z3A.36 36 WEEKS GESTATION OF 06/30/2017 ALEJANDRA JIMENEZ DO Ot O99.89 OTH DISEASES AND CONDITIONS COMPL PREG/C 06/30/2017 ALEJANDRA JIMENEZ DO Ot R42 DIZZINESS AND GIDDINESS 06/30/2017 ALEJANDRA JIMENEZ DO Ot Z3A.36 36 WEEKS GESTATION OF 07/02/2017 CLARE WOOTEN MD, Ot O13.3 GESTATIONAL HTN W/O SIGNIFICANT PROTEINU 07/02/2017 CLARE WOOTEN MD, Ot Z3A.00 WEEKS OF GESTATION OF NOT SPEC 09/12/2017 CLARE WOOTEN MD, Ot O13.3 GESTATIONAL HTN W/O SIGNIFICANT PROTEINU 09/12/2017 CLARE WOOTEN MD, Ot Z3A.00 WEEKS OF GESTATION OF NOT SPEC 09/19/2017 RONEL WHITE DO, Ot L05.91 PILONIDAL CYST WITHOUT ABSCESS 09/19/2017 RONEL WHITE DO, Ot Z01.818 ENCOUNTER FOR OTHER PREPROCEDURAL EXAMIN Procedures Code Description Performed By Performed On 5GK6ESH EXCISION OF BUTTOCK SKIN, EXTERNAL APPRO 06/24/2017 [id number] REPAIR PERINEUM SKIN, EXTERNAL APPROACH 06/24/2017 [id number] DELIVERY OF PRODUCTS OF CONCEPTION, EXTE 06/24/2017 Results Test Result Range RPR, Rfx Qn RPR/Confirm TP - 10/24/16 11:28 RPR Non Reactive Non Reactive HBsAg Screen - 10/24/16 11:28 HBsAg Screen Negative Negative HSV 1 and 2-Specific Ab, IgG - 10/24/16 11:28 HSV 1 IgG, Type Spec <0.91 index 0.00-0.90 HSV 2 IgG, Type Spec <0.91 index 0.00-0.90 Rubella Antibodies, IgG - 10/24/16 11:28 Rubella Antibodies, IgG 1.39 index Immune >0.99 Varicella-Zoster V Ab, IgG - 10/24/16 11:28 Varicella Zoster IgG 164 index Immune >165 AFP, Serum, Open Spina Bifida - 02/12/17 10:06 Results Report Test Results: *Screen Negative* Gest. Age on Collection Date 19.4 weeks Gestat. Age Based On Ultrasound M[age] At [age] 20.3 years Race Weight 166 lbs Insulin Dep Diabetes No Multiple Gestation No AFP Value 63.0 ng/mL AFP MoM 1.30 OSBR Risk 1 IN 4803 Interpretation Comment PDF . Comment: Comment CULTURE, URINE - 05/22/17 10:18 CULTURE, URINE, ROUTINE SEE NOTE NRG CULTURE, URINE - 06/04/17 17:37 CULTURE, URINE, ROUTINE SEE NOTE NRG URIC ACID, SERUM - 06/14/17 15:02 URIC ACID 5.3 mg/dL 2.5-7.0 PROTEIN, TOTAL W/CREAT, RANDOM URINE - 06/14/17 15:02 CREATININE, RANDOM URINE 208 mg/dL 20-320 PROTEIN/CREATININE RATIO 144 mg/g creat 21-161 PROTEIN, TOTAL, RANDOM UR 30 mg/dL 5-24 CBC - 06/14/17 15:02 WHITE BLOOD CELL COUNT 9.4 Thousand/uL 3.8-10.8 RED BLOOD CELL COUNT 4.13 Million/uL 3.80-5.10 HEMOGLOBIN 11.5 g/dL 11.7-15.5 HEMATOCRIT 35.1 % 35.0-45.0 MCV 85.0 fL 80.0-100.0 MCH 27.8 pg 27.0-33.0 MCHC 32.8 g/dL 32.0-36.0 RDW 12.3 % 11.0-15.0 PLATELET COUNT 278 Thousand/uL 140-400 MPV 12.0 fL 7.5-12.5 ABSOLUTE NEUTROPHILS 6138 cells/uL 9717-7528 ABSOLUTE LYMPHOCYTES 2547 cells/uL 850-3900 ABSOLUTE MONOCYTES 564 cells/uL 200-950 ABSOLUTE EOSINOPHILS 94 cells/uL 15-500 ABSOLUTE BASOPHILS 56 cells/uL 0-200 NEUTROPHILS 65.3 % NRG LYMPHOCYTES 27.1 % NRG MONOCYTES 6.0 % NRG EOSINOPHILS 1.0 % NRG BASOPHILS 0.6 % NRG Comprehensive metabolic panel - 06/18/17 15:35 Serum or plasma sodium measurement (moles/volume) 137 mmol/L 135-145 Serum or plasma potassium measurement (moles/volume) 4.1 mmol/L 3.6-5.0 Serum or plasma chloride measurement (moles/volume) 107 mmol/L 98-107 Carbon dioxide 21 mmol/L 21-32 Serum or plasma anion gap determination (moles/volume) 9 mmol/L 5-14 Serum or plasma urea nitrogen measurement (mass/volume) 10 mg/dL 7-18 Serum or plasma creatinine measurement (mass/volume) 0.69 mg/dL 0.60-1.30 Serum or plasma urea nitrogen/creatinine mass ratio 14 NRG Serum or plasma creatinine measurement with calculation of estimated glomerular filtration rate > NRG Serum or plasma glucose measurement (mass/volume) 87 mg/dL 70-105 Serum or plasma calcium measurement (mass/volume) 9.3 mg/dL 8.5-10.1 Serum or plasma total bilirubin measurement (mass/volume) 0.2 mg/dL 0.1-1.0 Serum or plasma alkaline phosphatase measurement (enzymatic activity/volume) 191 U/L 40-136 Serum or plasma aspartate aminotransferase measurement (enzymatic activity/ volume) 15 U/L 5-34 Serum or plasma alanine aminotransferase measurement (enzymatic activity/volume ) 9 U/L 0-55 Serum or plasma protein measurement (mass/volume) 7.1 g/dL 6.4-8.2 Serum or plasma albumin measurement (mass/volume) 3.5 g/dL 3.2-4.5 Serum or plasma uric acid measurement (mass/volume) - 06/18/17 15:35 Serum or plasma uric acid measurement (mass/volume) 5.1 mg/dL 2.6-7.2 Lactate dehydrogenase 1 [enzymatic activity/volume] in serum or plasma - 15:35 Lactate dehydrogenase 1 [enzymatic activity/volume] in serum or plasma 184 U/L 125-220 Complete blood count (CBC) with automated white blood cell (WBC) differential - 06/19/17 18:45 Blood leukocytes automated count (number/volume) 11.0 10*3/uL 4.3-11.0 Blood erythrocytes automated count (number/volume) 3.70 10*6/uL 4.35-5.85 Venous blood hemoglobin measurement (mass/volume) 10.6 g/dL 11.5-16.0 Blood hematocrit (volume fraction) 32 % 35-52 Automated erythrocyte mean corpuscular volume 85 [foz_us] 80-99 Automated erythrocyte mean corpuscular hemoglobin (mass per erythrocyte) 29 pg 25-34 Automated erythrocyte mean corpuscular hemoglobin concentration measurement ( mass/volume) 34 g/dL 32-36 Automated erythrocyte distribution width ratio 12.9 % 10.0-14.5 Automated blood platelet count (count/volume) 246 10*3/uL 130-400 Automated blood platelet mean volume measurement 11.6 [foz_us] 7.4-10.4 Automated blood neutrophils/100 leukocytes 66 % 42-75 Automated blood lymphocytes/100 leukocytes 23 % 12-44 Blood monocytes/100 leukocytes 9 % 0-12 Automated blood eosinophils/100 leukocytes 1 % 0-10 Automated blood basophils/100 leukocytes 0 % 0-10 Blood neutrophils automated count (number/volume) 7.3 10*3 1.8-7.8 Blood lymphocytes automated count (number/volume) 2.6 10*3 1.0-4.0 Blood monocytes automated count (number/volume) 1.0 10*3 0.0-1.0 Automated eosinophil count 0.1 10*3/uL 0.0-0.3 Automated blood basophil count (count/volume) 0.0 10*3/uL 0.0-0.1 Comprehensive metabolic panel - 06/19/17 18:45 Serum or plasma sodium measurement (moles/volume) 139 mmol/L 135-145 Serum or plasma potassium measurement (moles/volume) 3.9 mmol/L 3.6-5.0 Serum or plasma chloride measurement (moles/volume) 108 mmol/L 98-107 Carbon dioxide 20 mmol/L 21-32 Serum or plasma anion gap determination (moles/volume) 11 mmol/L 5-14 Serum or plasma urea nitrogen measurement (mass/volume) 10 mg/dL 7-18 Serum or plasma creatinine measurement (mass/volume) 0.68 mg/dL 0.60-1.30 Serum or plasma urea nitrogen/creatinine mass ratio 15 NRG Serum or plasma creatinine measurement with calculation of estimated glomerular filtration rate > NRG Serum or plasma glucose measurement (mass/volume) 95 mg/dL 70-105 Serum or plasma calcium measurement (mass/volume) 9.4 mg/dL 8.5-10.1 Serum or plasma total bilirubin measurement (mass/volume) 0.2 mg/dL 0.1-1.0 Serum or plasma alkaline phosphatase measurement (enzymatic activity/volume) 175 U/L 40-136 Serum or plasma aspartate aminotransferase measurement (enzymatic activity/ volume) 14 U/L 5-34 Serum or plasma alanine aminotransferase measurement (enzymatic activity/volume ) 9 U/L 0-55 Serum or plasma protein measurement (mass/volume) 6.7 g/dL 6.4-8.2 Serum or plasma albumin measurement (mass/volume) 3.2 g/dL 3.2-4.5 Serum or plasma uric acid measurement (mass/volume) - 06/19/17 18:45 Serum or plasma uric acid measurement (mass/volume) 4.7 mg/dL 2.6-7.2 Lactate dehydrogenase 1 [enzymatic activity/volume] in serum or plasma - 18:45 Lactate dehydrogenase 1 [enzymatic activity/volume] in serum or plasma 188 U/L 125-220 Urine protein/creatinine mass ratio - 06/20/17 10:00 Urine protein measurement (mass/volume) 10 mg/dL 6-12 Urine creatinine measurement (mass/volume) 106 mg/dL 30- 125 Urine protein/creatinine mass ratio 0.09 NRG Urine protein/creatinine mass ratio - 06/23/17 19:30 Urine protein measurement (mass/volume) 10 mg/dL 6-12 Urine creatinine measurement (mass/volume) 102 mg/dL 30- 125 Urine protein/creatinine mass ratio 0.10 NRG Complete urinalysis with reflex to culture - 06/23/17 19:30 Urine color determination YELLOW NRG Urine clarity determination CLEAR NRG Urine pH measurement by test strip 7 5-9 Specific gravity of urine by test strip 1.020 1.016- 1.022 Urine protein assay by test strip, semi-quantitative NEGATIVE NEGATIVE Urine glucose detection by automated test strip NEGATIVE NEGATIVE Erythrocytes detection in urine sediment by light microscopy NEGATIVE NEGATIVE Urine ketones detection by automated test strip NEGATIVE NEGATIVE Urine nitrite detection by test strip NEGATIVE NEGATIVE Urine total bilirubin detection by test strip NEGATIVE NEGATIVE Urine urobilinogen measurement by automated test strip (mass/volume) NORMAL NORMAL Urine leukocyte esterase detection by dipstick NEGATIVE NEGATIVE Automated urine sediment erythrocyte count by microscopy (number/high power field) NONE NRG Automated urine sediment leukocyte count by microscopy (number/high power field ) NONE NRG Bacteria detection in urine sediment by light microscopy NONE NRG Squamous epithelial cells detection in urine sediment by light microscopy 5-10 NRG Crystals detection in urine sediment by light microscopy NONE NRG Casts detection in urine sediment by light microscopy NONE NRG Mucus detection in urine sediment by light microscopy NEGATIVE NRG Complete urinalysis with reflex to culture NO NRG Complete blood count (CBC) with automated white blood cell (WBC) differential - 06/23/17 19:50 Blood leukocytes automated count (number/volume) 12.4 10*3/uL 4.3-11.0 Blood erythrocytes automated count (number/volume) 3.69 10*6/uL 4.35-5.85 Venous blood hemoglobin measurement (mass/volume) 10.6 g/dL 11.5-16.0 Blood hematocrit (volume fraction) 32 % 35-52 Automated erythrocyte mean corpuscular volume 85 [foz_us] 80-99 Automated erythrocyte mean corpuscular hemoglobin (mass per erythrocyte) 29 pg 25-34 Automated erythrocyte mean corpuscular hemoglobin concentration measurement ( mass/volume) 34 g/dL 32-36 Automated erythrocyte distribution width ratio 13.2 % 10.0-14.5 Automated blood platelet count (count/volume) 243 10*3/uL 130-400 Automated blood platelet mean volume measurement 12.5 [foz_us] 7.4-10.4 Automated blood neutrophils/100 leukocytes 67 % 42-75 Automated blood lymphocytes/100 leukocytes 22 % 12-44 Blood monocytes/100 leukocytes 11 % 0-12 Automated blood eosinophils/100 leukocytes 1 % 0-10 Automated blood basophils/100 leukocytes 0 % 0-10 Blood neutrophils automated count (number/volume) 8.3 10*3 1.8-7.8 Blood lymphocytes automated count (number/volume) 2.7 10*3 1.0-4.0 Blood monocytes automated count (number/volume) 1.3 10*3 0.0-1.0 Automated eosinophil count 0.1 10*3/uL 0.0-0.3 Automated blood basophil count (count/volume) 0.0 10*3/uL 0.0-0.1 Comprehensive metabolic panel - 06/23/17 19:50 Serum or plasma sodium measurement (moles/volume) 135 mmol/L 135-145 Serum or plasma potassium measurement (moles/volume) 4.1 mmol/L 3.6-5.0 Serum or plasma chloride measurement (moles/volume) 107 mmol/L 98-107 Carbon dioxide 19 mmol/L 21-32 Serum or plasma anion gap determination (moles/volume) 9 mmol/L 5-14 Serum or plasma urea nitrogen measurement (mass/volume) 10 mg/dL 7-18 Serum or plasma creatinine measurement (mass/volume) 0.72 mg/dL 0.60-1.30 Serum or plasma urea nitrogen/creatinine mass ratio 14 NRG Serum or plasma creatinine measurement with calculation of estimated glomerular filtration rate > NRG Serum or plasma glucose measurement (mass/volume) 72 mg/dL 70-105 Serum or plasma calcium measurement (mass/volume) 9.2 mg/dL 8.5-10.1 Serum or plasma total bilirubin measurement (mass/volume) 0.2 mg/dL 0.1-1.0 Serum or plasma alkaline phosphatase measurement (enzymatic activity/volume) 189 U/L 40-136 Serum or plasma aspartate aminotransferase measurement (enzymatic activity/ volume) 15 U/L 5-34 Serum or plasma alanine aminotransferase measurement (enzymatic activity/volume ) 9 U/L 0-55 Serum or plasma protein measurement (mass/volume) 6.9 g/dL 6.4-8.2 Serum or plasma albumin measurement (mass/volume) 3.4 g/dL 3.2-4.5 Serum or plasma uric acid measurement (mass/volume) - 06/23/17 19:50 Serum or plasma uric acid measurement (mass/volume) 3.9 mg/dL 2.6-7.2 Lactate dehydrogenase 1 [enzymatic activity/volume] in serum or plasma - 19:50 Lactate dehydrogenase 1 [enzymatic activity/volume] in serum or plasma 186 U/L 125-220 Blood type T Indirect antibody screen panel - 06/23/17 19:50 ABO+Rh group AN [facility] Transfusion band number [id number] [facility] Blood group antibody screen NEGATIVE [facility] Complete blood count (CBC) with automated white blood cell (WBC) differential - 06/25/17 05:50 Blood leukocytes automated count (number/volume) 14.0 10*3/uL 4.3-11.0 Blood erythrocytes automated count (number/volume) 3.69 10*6/uL 4.35-5.85 Venous blood hemoglobin measurement (mass/volume) 10.6 g/dL 11.5-16.0 Blood hematocrit (volume fraction) 31 % 35-52 Automated erythrocyte mean corpuscular volume 85 [foz_us] 80-99 Automated erythrocyte mean corpuscular hemoglobin (mass per erythrocyte) 29 pg 25-34 Automated erythrocyte mean corpuscular hemoglobin concentration measurement ( mass/volume) 34 g/dL 32-36 Automated erythrocyte distribution width ratio 13.2 % 10.0-14.5 Automated blood platelet count (count/volume) 216 10*3/uL 130-400 Automated blood platelet mean volume measurement 12.0 [foz_us] 7.4-10.4 Automated blood neutrophils/100 leukocytes 72 % 42-75 Automated blood lymphocytes/100 leukocytes 18 % 12-44 Blood monocytes/100 leukocytes 9 % 0-12 Automated blood eosinophils/100 leukocytes 0 % 0-10 Automated blood basophils/100 leukocytes 0 % 0-10 Blood neutrophils automated count (number/volume) 10.0 10*3 1.8-7.8 Blood lymphocytes automated count (number/volume) 2.6 10*3 1.0-4.0 Blood monocytes automated count (number/volume) 1.3 10*3 0.0-1.0 Automated eosinophil count 0.1 10*3/uL 0.0-0.3 Automated blood basophil count (count/volume) 0.0 10*3/uL 0.0-0.1 RH IMMUNE GLOBULIN RHOPHYLAC - 06/25/17 05:50 RH IMMUNE GLOBULIN RHOPHYLAC PRSMD TRFSD 06/25/17 1318 NRG cell screen - 06/25/17 05:50 SCREEN LOT NUMBER [id number] NRG Transfusion band number [id number] NRG [id number] 1 300ug NRG Erythrocytes./1000 erythrocytes 07/05/18 NRG cell screen 02/28/19 NRG Lot number [id number] NRG Encounters ACCT No. Visit Date/Time Discharge Status Pt. Type Provider Facility Loc./Unit Complaint [id number] 04/09/2017 10:15:59 04/09/2017 23:59:59 CLS Outpatient Kiara Stokes [id number] 03/13/2017 10:34:53 03/13/2017 23:59:59 CLS Outpatient Aisha Marshall [id number] 03/12/2017 09:47:28 03/12/2017 23:59:59 CLS Outpatient Kiara Stokes [id number] 02/20/2017 08:52:24 02/20/2017 23:59:59 CLS Outpatient Aisha Marshall [id number] 02/12/2017 09:42:29 02/12/2017 23:59:59 CLS Outpatient Kiara Stokes [id number] 01/15/2017 10:38:27 01/15/2017 23:59:59 CLS Outpatient Aisha Marshall [id number] 01/15/2017 09:53:50 01/15/2017 23:59:59 CLS Outpatient Kiara Stokes [id number] 12/18/2016 09:56:11 12/18/2016 23:59:59 CLS Outpatient Kiara Stokes [id number] 11/20/2016 10:08:22 11/20/2016 23:59:59 CLS Outpatient Kiara Stokes [id number] 11/08/2016 09:51:58 11/08/2016 23:59:59 CLS Outpatient Kiara Stokes [id number] 10/30/2016 08:56:49 10/30/2016 23:59:59 CLS Outpatient Ashley Del Rosario [id number] 01/26/2015 16:56:44 01/26/2015 23:59:59 CLS Outpatient Nathanael, Marilu [id number] 12/15/2014 14:14:59 12/15/2014 23:59:59 CLS Outpatient Ashby Sebas [id number] 12/13/2014 22:05:04 12/13/2014 23:59:59 CLS Outpatient Walker, Marilu [id number] 08/10/2014 10:45:59 08/10/2014 23:59:59 CLS Outpatient Walker, Marilu [id number] 06/18/2014 15:21:11 06/18/2014 23:59:59 CLS Outpatient Wilver Nguyen Florentino [id number] 05/19/2014 16:44:46 05/19/2014 23:59:59 CLS Outpatient Nathanael, Marilu [id number] 04/21/2014 15:10:47 04/21/2014 23:59:59 CLS Outpatient WilverNguyen [id number] 02/24/2014 17:19:18 02/24/2014 23:59:59 CLS Outpatient Wilver Nguyen Florentino [id number] 11/26/2013 11:11:17 11/26/2013 23:59:59 CLS Outpatient Walker, Marilu [id number] 10/25/2016 08:10:00 Document Registration [id number] 10/25/2016 11:06:00 Document Registration [id number] 10/26/2016 07:07:00 Document Registration [id number] 10/25/2016 15:07:00 Document Registration [id number] 02/15/2017 06:06:00 Document Registration [id number] 10/25/2016 19:06:00 Document Registration [id number] 04/30/2017 14:35:04 Document Registration [id number] 04/12/2017 11:48:38 Document Registration [id number] 04/09/2017 09:05:45 Document Registration [id number] 03/26/2017 11:17:01 Document Registration [id number] 03/26/2017 00:56:47 Document Registration [id number] 08/08/2017 09:00:00 08/08/2017 23:59:59 [facility] [id number] 06/14/2017 14:20:00 Document Registration [id number] 06/04/2017 16:00:00 Document Registration [id number] 05/22/2017 10:00:00 Document Registration [id number] 09/23/2017 09:00:00 09/23/2017 23:59:59 CLS Preadmit RONEL WHITE DO [facility] SDC PILONIDAL CYST [id number] 09/18/2017 05:34:00 09/18/2017 12:02:00 DIS Outpatient RONEL WHITE DO [facility] PREOP PILONIDAL CYST [id number] 06/23/2017 19:10:00 06/25/2017 18:45:00 DIS Inpatient CLARE WOOTEN MD [facility] LDRP INDUCTION [id number] 06/19/2017 17:50:00 06/20/2017 13:00:00 DIS Inpatient CLARE WOOTEN MD [facility] LDRP HIGH BP [id number] 06/18/2017 15:01:00 06/18/2017 23:59:59 CLS Outpatient CLARE WOOTEN MD [facility] RAD O13.3 [id number] 06/13/2017 18:34:00 06/13/2017 19:40:00 DIS Outpatient ALEJANDRA JIMENEZ DO [facility] WSo HIGH BP
[2017-10-03] MEDS ORDERED: ceFAZolin 2 GM IV Premixed 50 ML IV ONE (09:15)
[2017-10-03] MEDS ORDERED: LIDOCAINE/EPI 1%-1:200,000 (XYLOCAINE) 10 ML VIAL ONE (09:54)
--- NOTE | 2017-10-03 10:26 | Progress Note-Pre Operative ---
Pre-Operative Progress Note H&P Reviewed The H&P was reviewed, patient examined and no changes noted. Time Seen by Provider: 10:21 Date H&P Reviewed: October 03, 2017 Time H&P Reviewed: 10:23 Pre-Operative Diagnosis: Pilondal cyst RONEL WHITE DO October 03, 2017 10:26
[2017-10-03] MEDS ORDERED: MIDAZOLAM 2 MG/2 ML (VERSED) VIAL ONE (10:34)
[2017-10-03] MEDS ORDERED: fentaNYL INJECTION 100 MCG/2 ML AMP ONE (10:34)
[2017-10-03] MEDS ORDERED: ROCURONIUM 10 MG/ML 5 ML SYRINGE IV ONE (11:10)
[2017-10-03] MEDS ORDERED: NEOSTIGMINE 1 MG/ML 5 ML SYRINGE ONE (11:10)
[2017-10-03] MEDS ORDERED: ONDANSETRON 4 MG/2 ML (SDV) Z0FRAN ONE (11:10)
[2017-10-03] MEDS ORDERED: DEXAMETHASONE 10 MG/ML (DECADRON) 1 ML VIAL ONE (11:10)
[2017-10-03] MEDS ORDERED: proPOfol 200 MG/20 ML (DIPRIVAN) VIAL IV ONE (11:10)
[2017-10-03] MEDS ORDERED: SEVOFLURANE (ULTANE) 15 ML INHAL SOLN ONE (11:10)
[2017-10-03] MEDS ORDERED: GLYCOPYRROLATE 0.2 MG/ML (ROBINUL) 2 ML VIAL ONE (11:10)
[2017-10-03] MEDS ORDERED: LIDOCAINE PF 2% 5 ML (XYLOCAINE) VIAL ONE (11:10)
--- NOTE | 2017-10-03 11:13 | Progress Note-Post Operative ---
Post-Operative Progess Note Surgeon (s)/Correspondent (s) Surgeon RONEL WHITE DO Correspondent: none Pre-Operative Diagnosis Pilondal cyst Post-Operative Diagnosis same Procedure & Operative Findings Date of Procedure 10/03/17 Procedure Performed/Findings Excision of pilonidal cyst Anesthesia Type GET Estimated Blood Loss Estimated blood loss (mL): less than 10ml Specimens/Packing Specimens Removed pilonidal cyst RONEL WHITE DO October 03, 2017 11:13
[2017-10-03] MEDS ORDERED: ACHD5005 PO (11:14)
--- NOTE | 2017-10-03 11:17 | Discharge Inst-Surgical ---
Discharge Inst-Surgical Depart Medication/Instructions New, Converted or Re-Newed RX: RX Given to Pt/Family Patient Instructions Follow up Appt: Make appointment for 1 week. [phone] Instructions: No lifting greater than 10 pounds. No strenuous activity. May shower in 24 hours, no tub bath or soaking. Use incentive spirometer at home as directed. No Smoking Skin/Wound Care: May remove bandages in am. You need to change packing daily. Symptoms to Report: Appetite Changes, Extremity Discoloration, Numbness/Tingling, Swelling Increased , Bleeding Excessive, Eyesight Changes, Pain Increased, Urine Color Change, Constipation(Persistent), Fever over 101 degree F, Pain/Pressure in chest, Urinating Difficulty, Cough Up/Vomit Blood, Heart Beat Irreg/Pounding, Pain/ Pressure in jaw, Vaginal Bleeding Increase, Cramps in feet or legs, Lightheadedness, Pain/Pressure in shoulder, Diarrhea(Persistent), Memory Changes Suddenly, Questions/Concerns, Weight gain consecutive days, Dizziness/ Fainting, Nausea/Vomiting, Shortness of Breath, Weight gain over 2 pounds If questions or concerns contact your physician Or seek help at emergency department. Consults/Follow Up Patient Instructions: Kamila aldridge will help when sitting down Activity Activity as Tolerated: Yes Driving Instructions: No Driving/Refer to Dr. Trujillo Discharge Diet: No Restrictions Diet After 24 Hours: Clear Liquid if Nauseous If Any Problems/Questions/Issu: Contact Your Physician, Go to Emergency Room Skin/Wound Care Infection Signs and Symptoms: Increased Redness, Foul Odor of Wound, Increased Drainage, Skin Itchy or Has a Rash, Increased Swelling, Temperature Above 101 F Bathing Instructions: Shower Operative Area Clean and Dry: Keep Incision Clean/Dry RONEL WHITE DO October 03, 2017 11:17
[2017-10-03] MEDS ORDERED: ONDANSETRON 4 MG/2 ML (SDV) Z0FRAN IVP PRN (11:45)
[2017-10-03] MEDS ORDERED: MEPERIDINE (DEMEROL) INJ 50 MG/ML IVP PRN (11:45)
[2017-10-03] MEDS ORDERED: HYDROmorphone 1 MG/ML (DILAUDID) 1 ML SYRINGE IV PRN (11:45)
[2017-10-03] MEDS ORDERED: morphine INJ 10 MG/ML 1ML (SYR OR VIAL) IVP PRN (11:45)
[2017-10-03 12:00] VITALS: BP 129/81
[2017-10-03 12:30] VITALS: BP 117/87
--- NOTE | 2017-10-03 12:32 | Anesthesia-General Post-Op ---
General Patient Condition Mental Status/LOC: Same as Preop Cardiovascular: Satisfactory Nausea/Vomiting: Absent Respiratory: Satisfactory Pain: Controlled Complications: Absent Post Op Complications Complications None Follow Up Care/Instructions Patient Instructions None needed. Anesthesia/Patient Condition Patient Condition Patient is doing well, no complaints, stable vital signs, no apparent adverse anesthesia problems. No complications reported per nursing. PERI OLGUIN CRNA October 03, 2017 12:32
[2017-10-03 13:00] VITALS: BP 111/69
[2017-10-03 13:20] VITALS: BP 111/69
--- NOTE | 2017-10-03 22:48 | OPERATIVE REPORT ---
DATE OF SERVICE: 10/03/2017 PREOPERATIVE DIAGNOSIS: Pilonidal cyst. POSTOPERATIVE DIAGNOSIS: Pilonidal cyst. PROCEDURE: Excision of pilonidal cyst with packing. SURGEON: Jovanni Patton DO HARNESS WORKER: None. ANESTHESIA: General endotracheal tube. SPECIMEN: Pilonidal cyst. BLOOD LOSS: Less than 10 mL. FLUIDS: Per anesthesia. POSTOPERATIVE CONDITION: Stable. INDICATION FOR PROCEDURE: The patient is a 22-year-old female who had a history of pilonidal cyst who actually had it removed one time before, but it continued to come back and she needed this removed. FINDINGS: The patient actually had an area of hypergranulated tissue and tunneling at the site of previous incision. Most likely the reason is this was not healing. DESCRIPTION OF PROCEDURE: After informed consent was obtained, the patient was brought to the operating room. She was first intubated and placed on the table on prone position. She was then sterilely prepped and draped in normal fashion. Local lidocaine was used to infiltrate the skin surrounding the pilonidal cyst and then at the area where that was previously drained which was just below the previous excision, I made a small circular incision going down around this sinus tract down to the sacrum using #11 blade and then Bovie electrocautery, however, felt like there was a tunneling and then opened the incision superiorly along the previous incision and found a tunnel of hypergranulated tissue. This tissue will never heal and would be the perfect site for continued abscesses, so then excised all of this tissue down to the sacrum. I excised the old tissue, cauterized to create scarring and start the healing process over again. I copiously irrigated with normal saline. Hemostasis obtained using Bovie electrocautery and once all of the old necrotic tissue was out down to the sacrum, I elected to pack with 1/2 inch iodoform packing, packed the incision, then a dressing was placed and the patient then was transferred to recovery room in stable condition. Sponge, instrument and needle count correct at the end of the case. Job ID: [id number] DocumentID: [id number] Dictated Date: 10/03/2017 11:20:16 Jack Setter Date: 10/03/2017 16:44:23 Dictated By: JOVANNI PATTON DO
== END 2017-10-03 13:20 | disposition home or self-care (01) ==
LOC: SDC 08:49
PROVIDERS: ATTEND Surgery
DX: L05.91 Pilonidal cyst without abscess (principal); J45.909 Unspecified asthma, uncomplicated; Z87.891 Personal history of nicotine dependence
CPT/HCPCS: 84703; 87081; 88304; 94664

== ENCOUNTER → 2020-02-15 | Outpatient (CLI) | payer MEDICAID ==
[~2020-02-15] MED LIST changes: +ACHD5005 PO
[2020-02-15 15:20] LABS: BASOPHILS # (AUTO) 0.1 10^3/uL (0.0-0.1); BASOPHILS % (AUTO) 0 % (0-10); EOSINOPHILS # (AUTO) 0.1 10^3/uL (0.0-0.3); EOSINOPHILS % (AUTO) 1 % (0-10); HEMATOCRIT 33 % (35-52); HEMOGLOBIN 10.4 g/dL (11.5-16.0); LYMPHOCYTES # (AUTO) 1.9 10^3/uL (1.0-4.0); LYMPHOCYTES % (AUTO) 16 % (12-44); MEAN CORPUSCULAR HEMOGLOBIN 27 pg (25-34); MEAN CORPUSCULAR HGB CONC 32 g/dL (32-36); MEAN CORPUSCULAR VOLUME 86 fL (80-99); MEAN PLATELET VOLUME 11.7 fL (9.0-12.2); MONOCYTES # (AUTO) 0.9 10^3/uL (0.0-1.0); MONOCYTES % (AUTO) 7 % (0-12); NEUTROPHILS # (AUTO) 8.8 10^3/uL (1.8-7.8); NEUTROPHILS % (AUTO) 74 % (42-75); PLATELET COUNT 241 10^3/uL (130-400); WHITE BLOOD COUNT 11.9 10^3/uL (4.3-11.0)
[2020-02-15 15:36] LABS: ALANINE AMINOTRANSFERASE 9 U/L (0-55); ALBUMIN 3.5 GM/DL (3.2-4.5); ALKALINE PHOSPHATASE 175 U/L (40-136); BILIRUBIN,TOTAL 0.2 MG/DL (0.1-1.0); BUN/CREATININE RATIO 9; CARBON DIOXIDE 21 MMOL/L (21-32); CHLORIDE 104 MMOL/L (98-107); CREATININE SERUM 0.64 MG/DL (0.60-1.30); GFR ESTIMATED > 60; GLUCOSE 97 MG/DL (70-105); SODIUM 136 MMOL/L (135-145); TOTAL PROTEIN 7.1 GM/DL (6.4-8.2)
[2020-02-15 16:01] LABS: URINE CREATININE FOR RATIO 35 MG/DL (30-125)
[2020-02-15 16:02] LABS: URINE PROTEIN FOR RATIO ONLY < 6 MG/DL (6-12)
== END ==
LOC: LAB 14:57
PROVIDERS: ATTEND Family Medicine
DX: Z33.1 Pregnant state, incidental (principal)
CPT/HCPCS: 36415; 80053; 82570; 83615; 84156; 85025

== ENCOUNTER 2020-03-07 14:17 | Outpatient (CLI) | payer MEDICAID ==
[~2020-03-07] VITALS: Ht 165 cm; Wt 99.2 kg
--- NOTE | 2020-03-07 14:25 | NUR ---
ROSALINDA SEGAL presented to unit via AMBULATORY from ED REGISTRATION, accompanied by , with c/o CRAMPING;LEAKING FLUID/DISCHARGE. ROSALINDA SEGAL weighed, gowned, voided, and to bed. EFHM and TOCO applied, VS taken. ROSALINDA SEGAL oriented to bed controls, call light, TV, heat, and A/C controls.
[2020-03-07 15:30] VITALS: BP 112/73
--- NOTE | 2020-03-07 15:30 | OB Triage Report ---
Standard Progress Note Progress Notes/Assess & Plan Date Seen by a Provider: Mar 07, 2020 Time Seen by a Provider: 15:14 Expected Date of Delivery: Mar 24, 2020 Gestational Age in Weeks: 37 Gestational Age in Days: 4 LMP/YURIDIA Comment: Patient reports that she has a had a 2-3 day history of yellow-clear, thin discharge after using the bathroom. Denies any itchiness or pain. No large loss of fluid. No white discharge or foul odor. Has some cramping in her lower pelvis and low right back for the last few days. She called clinic as she was concerned she had lost her fluids and was in labor. They asked her to come get checked out. She also reports a little bit of nausea and loose stools this morning. Denies fevers, sore throat, cough, shortness of breath, loss of taste/smell, or headaches. No known sick contacts or COVID-19 exposures. Tested negative for COVID-19 back in November. VB-, LOF-, Ctx-, FM+ Review of systems otherwise negative General: alert and answers questions appropriately Pulm: non-labored respirations GI: gravid abdomen, soft, non-tender Neuro: Grossly intact : deferred Progress/Assessment & Plan 25 y/o at 37w4d who presents to triage for concern for loss of fluid and cramping - Amnisure negative; suspect fluid is urine or physiologic in nature - deferred further speculum exam with swabs given benign history - NST category 1 and reactive; TOCO without contractions - UA negative for infection, however, suggestive of mild dehydration - suspect round ligament pain > Ok to take Tylenol prn pain > Encouraged increased oral fluid intake > patient not in labor, will discharge home > Return precautions given d/w Dr. Adrienne Bragg MD [facility] Resident Physician, PGY-2 Final Diagnosis 37 weeks r/o labor CHARLI BRAGG MD Mar 07, 2020 15:29
--- NOTE | 2020-03-07 15:33 | NUR ---
This RN gives report to Dr Bragg, resident at approx 1510. Pt of Dr Younger, , EDC Mar 24, 37.4 wks gestation. CO leaking fluid; which upon questioning, RN finds that pt is Not leaking clear watery fluid but has a cream/light yellow colored discharge when wiping after going to the bathroom. Pt states she has had this discharge for the past week. Denies large gush of fluid at any time. Amnioswap negative. Pt also states she started cramping irregularly last night and has had a couple UC today. No UC found by TOCO by RN today. Reactive NST. Good movement reported by pt. Pt states she has finished Amoxicillin for UTI tx on 03/03. Urine dipped, results given to . Pt denies any water intake for today. Pt CO of diarrhea and slight nausea starting approx 0900 today. Denies vomiting, pt is without fever, denies respiratory SS, denies COVID exposure, denies loss of smell or taste as well. Pt states she was tested for COVID on November 20, 2019 and resulted negative. Prenatals have been requested by this RN from [facility]. Dr Bragg reviewed FHT strip and will report off/check out to Dr Deleon. Dr Deleon called by Dr bragg approx 1530 and Drs agree to DC pt to home.
== END 2020-03-07 15:45 | disposition home or self-care (01) ==
LOC: WSo 14:17 → LDRP 14:26 → WSo 15:45
PROVIDERS: ATTEND Family Medicine
DX: O34.63 Maternal care for abnormality of vagina, third trimester (principal); Z3A.37 37 weeks gestation of pregnancy